=== PATIENT | male | born 1960 | race Caucasian/White ===

== ENCOUNTER 2018-03-05 08:23 | Emergency (ER) | payer BC, SELFPAY ==
--- NOTE | 2018-03-05 09:35 | RAD ---
FRONTAL VIEW CHEST: Comparison: 08-18-16 History: Cough. FINDINGS: There is no consolidation, effusion, or pneumothorax. Mild elevation of the left hemidiaphragm. Cardi ac silhouette is prominent. IMPRESSION: Stable chest. No focal consolidation. POS: [facility]
[2018-03-05 09:37] LABS: #Eosinphils 0.2 thou/uL (0.0-0.7); #Lymphocytes 2.1 thou/uL (1.20-3.40); #Monocytes 0.4 thou/uL (0.11-0.59); #Neutrophils 2.7 thou/uL (1.40-6.50); %Basophils 0.5 % (0.0-1.0); %Eosinophils 3.1 % (0.0-10.0); %Lymphocytes 38.3 % (21.0-51.0); %Monocytes 7.1 % (0.0-10.0); %Neutrophils 51.1 % (42.0-75.0); Hemoglobin 13.8 g/dL (14.0-18.0); Mean Corpuscular HGB CONC 32.4 g/dL (32.0-36.0); Mean Corpuscular Hemoglobin 29.8 pg (27.0-31.0); Mean Platelet Volume 6.8 fL (7.4-10.4); Platelet Count 243 thou/uL (130-400); Red Blood Cell (RBC) Count 4.64 mill/uL (4.70-6.10); White Blood Cell (WBC) Count 5.4 thou/uL (4.8-10.8)
[2018-03-05 09:41] LABS: CKMB 2.5 ng/mL (0-6.6); Troponin I Less than 0.010 ng/mL (< 0.028)
[2018-03-05] MEDS ORDERED: Ondansetron ODT 8 MG TAB ONE (09:43)
[2018-03-05 09:45] LABS: ALT (SGPT) 24 U/L (8-55); AST (SGOT) 23 U/L (5-34); Albumin 4.5 g/dL (3.5-5.0); Alkaline Phosphatase 71 U/L (40-150); Anion Gap 12 mmol/L (10-20); BUN (Urea Nitrogen) 21 mg/dL (8.4-25.7); Bilirubin, Total 0.5 mg/dL (0.2-1.2); Calc. Creatinine Clearance 0 mL/min (70-130); Calcium 9.5 mg/dL (7.8-10.44); Carbon Dioxide 25 mmol/L (22-29); Chloride 104 mmol/L (98-107); Estimated GFR-MDRD 44; Globulin 3.5 g/dL (2.4-3.5); Glucose 99 mg/dL (70-105); Lipase 41 U/L (8-78); Potassium 4.1 mmol/L (3.5-5.1); Sodium 137 mmol/L (136-145)
--- NOTE | 2018-03-05 10:47 | CT ---
CT BRAIN WITHOUT CONTRAST: History: Hypertension. Headache. Weakness. FINDINGS: Comparison made with exam of 08-14-14. No evidence of acute infarct, hemorrhage, midline shift, or abnormal extraaxial fluid collections are seen. Ventricular size is normal and the basilar cisterns normal. The bony calvarium is intact. The left paranasal sinus and maxillary air cells are well aerated. IMPRESSION: No CT evidence of acute intracranial process. POS: [facility]
[2018-03-05 11:33] LABS: Bilirubin Negative (Negative); Blood, Urine Negative (Negative); Clarity CLEAR (Clear); Glucose, Urine (Dipstick) >=1000 mg/dL (Negative); Leukocyte Negative (Negative); Nitrite Negative (Negative); Protein, Urine (Dipstick) Negative (Neg-Trace); Specific Gravity, Urine 1.029 (1.002-1.036); Urobilinogen 0.2 mg/dL (0.2-1.0); pH, Urine 5.5 (5.0-9.0)
--- NOTE | 2018-03-17 11:47 | EKG ---
Test Reason : Blood Pressure : / mmHG Vent. Rate : 064 BPM Atrial Rate : 064 BPM P-R Int : 180 ms QRS Dur : 088 ms QT Int : 424 ms P-R-T Axes : 036 -35 028 degrees QTc Int : 437 ms Normal sinus rhythm Left axis deviation Low voltage QRS Abnormal ECG Confirmed by CYNDIE HARRINGTON ([id number]), food editor ANABELA BRADLEY ([id number]) on 03/17/2018 11:47:23 AM Referred By: JUANY Confirmed By:CYNDIE HARRINGTON
== END 2018-03-05 12:25 | disposition home or self-care (01) ==
LOC: ERS 08:23
DX: R51 Headache (principal); R53.83 Other fatigue; R11.2 Nausea with vomiting, unspecified; R05 Cough; E11.9 Type 2 diabetes mellitus without complications; I10 Essential (primary) hypertension; E78.5 Hyperlipidemia, unspecified; Z79.899 Other long term (current) drug therapy
CPT/HCPCS: 36415; 70450; 71045; 80053; 81003; 82553; 83690; 84484; 85025; 93005

== ENCOUNTER 2018-11-04 22:46 | Observation (INO) | payer BC, OTHER ==
--- NOTE | 2018-11-04 23:18 | RAD ---
FExam: Chest one view HISTORY:Pain Comparison: 03/05/2018 FINDINGS: Lungs: No masses or consolidation. Cardiac silhouette:Accentuated by portable technique Pulmonary vessels: Normal Pleural Spaces: Clear Pneumothorax: None Osseous abnormalities: None of acuity. IMPRESSION: Stable chest
[2018-11-04 23:19] LABS: #Basophils 0.1 thou/uL (0.0-0.2); #Eosinphils 0.2 thou/uL (0.0-0.7); #Monocytes 0.4 thou/uL (0.11-0.59); #Neutrophils 3.1 thou/uL (1.40-6.50); %Basophils 2.2 % (0.0-1.0); %Eosinophils 2.9 % (0.0-10.0); %Lymphocytes 44.2 % (21.0-51.0); %Monocytes 5.2 % (0.0-10.0); %Neutrophils 45.5 % (42.0-75.0); Hemoglobin 14.7 g/dL (14.0-18.0); Mean Corpuscular HGB CONC 33.2 g/dL (32.0-36.0); Mean Corpuscular Hemoglobin 30.4 pg (27.0-31.0); Mean Corpuscular Volume 91.7 fL (78.0-98.0); Mean Platelet Volume 6.9 fL (7.4-10.4); Platelet Count 288 thou/uL (130-400); RBC Distribution Width 13.3 % (11.5-14.5); Red Blood Cell (RBC) Count 4.83 mill/uL (4.70-6.10); White Blood Cell (WBC) Count 6.7 thou/uL (4.8-10.8)
[2018-11-04] MEDS ORDERED: Aspirin Chewable 81 MG TAB ONE (23:38)
[2018-11-04 23:45] LABS: ALT (SGPT) 30 U/L (8-55); AST (SGOT) 25 U/L (5-34); Albumin 4.5 g/dL (3.5-5.0); Alkaline Phosphatase 83 U/L (40-150); Anion Gap 13 mmol/L (10-20); BUN (Urea Nitrogen) 19 mg/dL (8.4-25.7); Bilirubin, Total 0.4 mg/dL (0.2-1.2); Calc. Creatinine Clearance 0 mL/min (70-130); Carbon Dioxide 26 mmol/L (22-29); Chloride 102 mmol/L (98-107); Estimated GFR-MDRD 45; Globulin 3.5 g/dL (2.4-3.5); Glucose 148 mg/dL (70-105); Potassium 4.1 mmol/L (3.5-5.1); Sodium 137 mmol/L (136-145)
[2018-11-05] MEDS ORDERED: Acetaminophen 325 MG TAB PO PRN ×2 (02:09→03:04)
[2018-11-05 02:36] LABS: Troponin I Less than 0.010 ng/mL (< 0.028)
[2018-11-05] MEDS ORDERED: Acetaminophen 325 MG TAB ONE (02:43)
[2018-11-05] MEDS ORDERED: Ondansetron ODT 4 MG TAB PO PRN (03:04)
[2018-11-05] MEDS ORDERED: Senokot S 8.6-50 MG TAB PO PRN (03:04)
[2018-11-05] MEDS ORDERED: Loperamide HCl 2 MG CAP PO PRN (03:04)
[2018-11-05] MEDS ORDERED: Dextrose 5% in Water 1,000 ML IV PRN (03:04)
[2018-11-05] MEDS ORDERED: Ondansetron PF 4 MG/2 ML Vial IVP PRN (03:04)
[2018-11-05] MEDS ORDERED: Zolpidem Tartrate 5 MG TAB PO PRN (03:04)
[2018-11-05] MEDS ORDERED: Bisacodyl 5 MG TAB PO PRN (03:04)
[2018-11-05] MEDS ORDERED: Calcium Carbonate 500 MG ChewTAB PO PRN (03:04)
[2018-11-05] MEDS ORDERED: HumaLOG 300 UNITS/3 ML VIAL SC PRN (03:04)
[2018-11-05] MEDS ORDERED: Dextrose 50% Abboject 50 ML SYRINGE SLOW IVP PRN (03:04)
[2018-11-05] MEDS ORDERED: Bisacodyl 10 MG SUPP PR PRN (03:04)
--- NOTE | 2018-11-05 03:26 | HP ---
PRIMARY CARE PHYSICIAN: Dr. Davy Leary. REASON FOR ADMISSION: Chest pain, generalized weakness. HISTORY OF PRESENT ILLNESS: A 58-year-old male with a history of hypertension, dyslipidemia, and morbid obesity, who came to emergency room with complaint of chest pain. His chest pain description is very vague. He denies any classic anginal pain. He reports that chest pain was all over his chest, some tightness feeling without any radiation and without any specific association with food, respiration, or activity. When he arrived to emergency room, his chest pain was subsided. He did not have any associated nausea, vomiting, diaphoresis. He did not have any palpitation, but he was feeling mild dizziness and weakness. In the emergency room, his electrocardiogram was unremarkable. His cardiac enzymes were negative. This patient had an abnormal stress test in 2017, at that time cardiac cath was required, which showed normal coronary arteries. The patient does not have any change in his exercise capacity. REVIEW OF SYSTEMS: CONSTITUTIONAL: Negative for weight loss or gain, ability to conduct usual activities. SKIN: Negative for rash, itching. EYES: Negative for double vision, pain. ENT/MOUTH: Negative for nose bleeding, neck stiffness, pain, tenderness. CARDIOVASCULAR: Negative for palpitations, dyspnea on exertion, orthopnea. RESPIRATORY: Negative for shortness of breath, wheezing, cough, hemoptysis, fever or night sweats. GASTROINTESTINAL: Negative for poor appetite, abdominal pain, heartburn, nausea, vomiting, constipation, or diarrhea. GENITOURINARY: Negative for urgency, frequency, dysuria, nocturia. MUSCULOSKELETAL: Negative for pain, swelling. NEUROLOGIC/PSYCHIATRIC: Negative for anxiety, depression. ALLERGY/IMMUNOLOGIC: Negative for skin rash, bleeding tendency. Please see my HPI for pertinent positives and negatives. All other review of systems reviewed and negative except as mentioned in HPI. PAST MEDICAL HISTORY: Hypertension, dyslipidemia, diabetes type 2, morbid obesity. PAST SURGICAL HISTORY: Right knee surgery, umbilical hernia repair in 1993. PAST PSYCHIATRIC HISTORY: Reviewed and negative. SOCIAL HISTORY: The patient is . No history of tobacco, alcohol, or illicit drug abuse. FAMILY HISTORY: Father had CVA, diabetes, hypertension. Mother had hypertension and heart disease. ALLERGIES: NO KNOWN DRUG ALLERGIES. CURRENT HOME MEDICATIONS: 1. Lisinopril 20 mg daily. 2. Zocor 10 mg p.o. at bedtime. 3. Xigduo XR 11/999 one tablet daily. EMERGENCY ROOM COURSE: The patient was given aspirin. PHYSICAL EXAMINATION: VITAL SIGNS: Currently, blood pressure 122/89, pulse 67, respiratory rate 20, temperature 97.5, saturation 100% on room air, weight 154.2 kg. GENERAL: The patient is currently alert, awake, no obvious acute distress. HEENT: Head; normocephalic, atraumatic. Eyes; pupils round, reactive to light. Extraocular muscle intact. ENT: Oropharynx within normal limits. Moist mucous membranes. No oral lesion. No pharyngeal erythema. No exudate. NECK: Supple. No JVD. No thyromegaly. No carotid bruit. No jugular venous distention. LUNGS: Clear to auscultation without any rhonchi or rales. CARDIAC: S1, S2 regular without any murmur. No gallop. No rub. ABDOMEN: Soft, morbid obesity present. Bowel sounds present. Nontender. Nondistended. No organomegaly. No mass. No suprapubic tenderness. BACK: Unremarkable, no CVA tenderness. EXTREMITIES: Upper extremities, passive movement of all joints are normal. Lower extremities, no edema. Good distal pulsation. SKIN: No skin rash. HEMATOLOGICAL: No lymphadenopathy. NEUROLOGIC: Nonfocal examination. SIGNIFICANT LABORATORY DATA: EKG showing normal sinus rhythm without any acute ischemic changes. Chest x-ray based on my review no acute cardiopulmonary process. CBC: WBC 6.7, hemoglobin 14.7, platelet 288. BMP: Sodium 137, potassium 4.1, chloride 102, carbon dioxide 26, BUN 19, creatinine 1.59, glucose 148, calcium 10.0. LFT, AST 25, ALT 30, alkaline phosphatase 83, and albumin 4.5. Cardiac enzyme negative x2. ASSESSMENT/PLAN: 1. Chest pain. The patient's chest pain description is atypical. He does not have any description that can suggest angina. He does not have any risk factor for thromboembolic disorder at this point. The patient is on room air, saturating normal. He does not have any pleurisy. At this point, we will do serial cardiac enzyme x3 and if all cardiac enzymes are negative, then we will consider discharging him home tomorrow. This patient does not need any further investigation and he will follow up with Cardiology as an outpatient basis given low risk. 2. Diabetes type 2. The patient will continue his home medication upon discharge. While in hospital, we will continue with insulin as per sliding scale per protocol. Diabetic diet will be given. 3. Chronic kidney disease, stage 3. We will monitor renal function. Avoid nephrotoxin agent. 4. Hypertension. Continue lisinopril per home dosage. 5. Dyslipidemia. Continue Zocor as per home dosage. 6. Morbid obesity, dietary education given. Weight loss education given. Healthy lifestyle measure discussed with the patient. 7. Deep venous thrombosis prophylaxis, not needed because we are expecting discharge in 24 hours. 8. Gastrointestinal prophylaxis. Pepcid 20 mg p.o. b.i.d. CODE STATUS: The patient is full code. DISPOSITION PLAN: If cardiac enzymes are negative, then we will consider discharging him home. Plan of care discussed with the patient in detail. Job ID: [id number]
[2018-11-05 04:14] LABS: Hemoglobin A1c 7.7 % (4.0-6.0)
[2018-11-05 04:27] LABS: Cardiac Risk 5.3 (Less than 4.5)
[2018-11-05 04:38] LABS: Troponin I 0.012 ng/mL (< 0.028)
[2018-11-05] MEDS ORDERED: HYDROcodone/Acetaminophen 5/325 mg Tablet ONE (08:24)
[2018-11-05] MEDS ORDERED: Aspirin 325 MG TAB ONE (08:24)
[2018-11-05] MEDS ORDERED: Lisinopril 10 MG TAB ONE (08:24)
[2018-11-05] MEDS ORDERED: Famotidine 20 MG TAB ONE (08:24)
[2018-11-05] MEDS: Famotidine 20 MG TAB PO SCH (08:26)
[2018-11-05] MEDS: Lisinopril 10 MG TAB PO SCH (08:26)
[2018-11-05] MEDS: HYDROcodone/Acetaminophen 5/325 mg Tablet PO PRN ×2 (08:27→15:44)
[2018-11-05] MEDS ORDERED: Aspirin 325 MG TAB PO SCH (09:00)
[2018-11-05] MEDS ORDERED: Nitroglycerin 0.4 MG TAB (25 Tab Bottle) PO PRN (10:53)
[2018-11-05] MEDS ORDERED: Insulin Regular 300 UNITS/3 ML VIAL ONE (11:27)
[2018-11-05] MEDS: HumaLOG 300 UNITS/3 ML VIAL SC PRN ×2 (11:31→15:45)
[2018-11-05 14:33] VITALS: BMI 48.8
[2018-11-05 15:24] LABS: Troponin I Less than 0.010 ng/mL (< 0.028)
[2018-11-05] MEDS ORDERED: Insulin Glargine 10 UNITS in Pre-Filled Syringe SC SCH (17:15)
[2018-11-05] MEDS ORDERED: Atorvastatin Calcium 10 MG TAB PO SCH (21:00)
[2018-11-06] MEDS ORDERED: Insulin Glargine 10 UNITS in Pre-Filled Syringe SC SCH (09:00)
[2018-11-06] MEDS ORDERED: Aspirin 325 mg Enteric Coated Tablet PO SCH (09:00)
[2018-11-06] MEDS: Famotidine 20 MG TAB PO SCH (10:01)
[2018-11-06] MEDS: Lisinopril 10 MG TAB PO SCH (10:01)
--- NOTE | 2018-11-06 11:00 | NM ---
CARDIAC SPECT WITH EJECTION FRACTION AND WALL MOTION: Date: 11/05/18 HISTORY: Chest pain. TECHNIQUE: This is a 2 day sestamibi Lexiscan protocol. Patient was injected with 31.8 mCi technetium-99m sestamibi intravenously for stress images and patie nt was injected with 30.8 mCi technetium-99m sestamibi intravenously for resting images. FINDINGS: Multiple SPECT images in the short axis, vertical long axis, and horizontal long axis demonstrate no scan evidence for infarct or ischemia. TID: 0.95 LHR: 0.24 EDV: 108 mL EF: 44% MYOCARDIAL PERFUSION WALL MOTION: Mild diffuse hypokinesis. IMPRESSION: No evidence for acute infarct or ischemia. Ejection fraction 44% with mild diffuse hypokinesis. POS: [facility]
[2018-11-06] MEDS ORDERED: Regadenoson 0.4 MG/5 ML SYRINGE ONE (11:37)
[2018-11-06 11:52] VITALS: BP 141/98; TEMP 98.7
[2018-11-06] MEDS ORDERED: Simvastatin 20 MG TAB PO SCH (21:00)
[2018-11-06] MEDS ORDERED: Simvastatin 5 MG TAB PO SCH (21:00)
--- NOTE | 2018-11-07 10:17 | DIS ---
DATE OF ADMISSION: 11/05/2018 DATE OF DISCHARGE: 11/06/2018 FOLLOWUP: 1. The patient will follow up with Dr. Dar Marino later this week. 2. The patient was advised to follow up with Dr. Luong to schedule a sleep study. 3. The patient was advised to follow up with Dr. Leary. DISCHARGE MEDICATION: 1. Lisinopril 20 mg daily. 2. Simvastatin 10 mg at bedtime. 3. Aspirin 81 mg daily. 4. Xigduo XR 04/1000 daily. BRIEF HOSPITAL COURSE: The patient is a 58-year-old male with diabetes mellitus type 2, hypertension, and morbid obesity, who presented to the emergency room with chest discomfort. Please refer to the history and physical for further details. The patient was admitted to the hospital with a diagnosis of chest discomfort, rule out acute coronary syndrome. Serial troponins were negative. The patient underwent stress test that was negative for reversible ischemia. Ejection fraction was 44% with mild diffuse hypokinesis. The patient will follow up with Cardiology as outpatient for an echocardiogram. He was also advised to get a sleep study as outpatient. He is chest pain free at this time. Lifestyle modification was emphasized. The patient was seen and examined on the day of discharge. Denies any new complaints. Chest discomfort has improved. FINAL DIAGNOSES: 1. Chest discomfort, acute coronary syndrome ruled out. 2. Diabetes mellitus type 2. Hemoglobin A1c was 7.7. 3. Morbid obesity with a BMI of 48.8. 4. Dyslipidemia. His triglycerides were 194 with cholesterol 251, LDL 165 with HDL of 47. The patient will discuss with his primary care physician regarding increasing dose of statins. 5. Hypertension. 6. Chronic kidney disease, stage 3. The patient was advised to repeat a basic metabolic profile in 1 week. PLAN: Plan of care was discussed with the patient. He stated understanding. Job ID: [id number]
--- NOTE | 2018-11-10 15:59 | EKG ---
Test Reason : Blood Pressure : / mmHG Vent. Rate : 067 BPM Atrial Rate : 067 BPM P-R Int : 174 ms QRS Dur : 094 ms QT Int : 406 ms P-R-T Axes : 033 -38 039 degrees QTc Int : 429 ms Normal sinus rhythm Left axis deviation Inferior infarct , age undetermined Anteroseptal infarct , age undetermined Abnormal ECG Confirmed by JAKE BUSTILLO, BEAN ([id number]), news editor ANABELA BRADLEY ([id number]) on 11/10/2018 3:59:26 PM Referred By: JAKE Confirmed By:BEAN JOSEPH MD
== END 2018-11-06 14:12 | disposition home or self-care (01) ==
LOC: ERS 22:46 → ERHOLD 11-05 01:22 → 2SW 11-05 14:18
PROVIDERS: ADMIT Internal Medicine; ATTEND Internal Medicine
DX: R07.89 Other chest pain (principal); I12.9 Hypertensive chronic kidney disease with stage 1 through stage 4 chronic kidney disease, or unspecified chronic kidney disease; E11.22 Type 2 diabetes mellitus with diabetic chronic kidney disease; N18.3 Chronic kidney disease, stage 3 (moderate); Z79.82 Long term (current) use of aspirin; E78.5 Hyperlipidemia, unspecified; E66.01 Morbid (severe) obesity due to excess calories; Z68.42 Body mass index [BMI] 45.0-49.9, adult; Z79.899 Other long term (current) drug therapy; Z98.890 Other specified postprocedural states
CPT/HCPCS: 36415; 36416; 71045; 78452; 80053; 80061; 83036; 84484; 85025; 93005; 93017; 94760; A9500; G0378; J1815; J1825; J2785

== ENCOUNTER 2019-08-06 17:22 | Emergency (ER) | payer BC ==
--- NOTE | 2019-08-06 19:42 | RAD ---
PORTABLE CHEST: 08/06/19 PROVIDED CLINICAL HISTORY: Cough. FINDINGS: Comparison 11/04/18. Evaluation is limited by patient body habitus. The cardiac and mediastinal silhouette are unchanged i n appearance. No focal consolidation, pleural fluid, or pneumothorax apparent. IMPRESSION: No definite evidence for an acute cardiopulmonary process. If there is persistent clinical concern, f ollow-up PA and lateral views of the chest are recommended. POS: [facility]
== END 2019-08-06 19:37 | disposition home or self-care (01) ==
LOC: ERS 17:22
DX: B34.9 Viral infection, unspecified (principal); E11.9 Type 2 diabetes mellitus without complications; E78.5 Hyperlipidemia, unspecified; E78.00 Pure hypercholesterolemia, unspecified; I10 Essential (primary) hypertension; Z79.899 Other long term (current) drug therapy
CPT/HCPCS: 71045

== ENCOUNTER 2020-05-29 18:08 | Inpatient (IN) | payer BC ==
[2020-05-29] MEDS ORDERED: Dextrose 50% Abboject 50 ML SYRINGE SLOW IVP PRN (19:30)
[2020-05-29] MEDS ORDERED: Dextrose 5% in Water 1,000 ML IV PRN (19:30)
[2020-05-29] MEDS ORDERED: Calcium Carbonate 500 MG ChewTAB PO PRN (19:30)
[2020-05-29] MEDS ORDERED: Ondansetron PF 4 MG/2 ML Vial IVP PRN (19:30)
[2020-05-29] MEDS ORDERED: Ondansetron ODT 4 MG TAB PO PRN (19:30)
[2020-05-29] MEDS ORDERED: HYDROcodone/Acetaminophen 5/325 mg Tablet PO PRN (19:30)
[2020-05-29] MEDS ORDERED: Acetaminophen 650 MG Suppository PR PRN (19:30)
--- NOTE | 2020-05-29 19:42 | PDOC.HHP ---
Hospitalist HPI - History of Present Illness evaluation for covid 19 History of Present Illness: Case of an 59y/o male with pmhx of DM and HTN who presents to hospital transfer from [facility] for the evaluation of covid 19. patient states he was on his usual state of health until about a week ago when he started with cough chills nasal congestion body aches and dyspnea which has become progressively worse. patient denies fever chest pain abdominal pain diarrhea or dysuria. states no know covid contacts. at the ed noted to me in respiratory failure with RA saturation in the 80s Hospitalist ROS - Review of Systems All other systems reviewed; all pertinent +/- noted in HPI/Subj Hospitalist History - Past Surgical History Past Surgical History: reports: Hernia Repair Other Surgical History: R knee orthopedic sx w laser - Family History Family History: reports: cardiac disorder, diabetes mellitus, hypertension - Social History Smoking Status: Never smoker Alcohol: reports: None Drugs: reports: none Living Situation: With Family - Exam General Appearance: NAD, awake alert Eye: PERRL, anicteric sclera ENT: normocephalic atraumatic, no oropharyngeal lesions Neck: supple, symmetric, no JVD Heart: RRR, no murmur, no gallops, no rubs Respiratory: no wheezes, no rales, rhonchi, tachypneic Gastrointestinal: soft, non-tender, non-distended, normal bowel sounds Extremities: no cyanosis, no clubbing, no edema Skin: normal turgor, no lesions, no rashes Neurological: cranial nerve grossly intact, normal sensation to touch, no weakn ess Musculoskeletal: normal tone, normal strength, no muscle wasting Psychiatric: normal affect, normal behavior, A&O x 3 Hospitalist H&P A/P - Problem (1) Pneumonia due to COVID-19 virus Code(s): U07.1 - COVID-19; J12.89 - OTHER VIRAL PNEUMONIA Status: Acute (2) Acute respiratory failure with hypoxia Code(s): J96.01 - ACUTE RESPIRATORY FAILURE WITH HYPOXIA Status: Acute (3) Diabetes mellitus type 2 in obese Code(s): E11.9 - TYPE 2 DIABETES MELLITUS WITHOUT COMPLICATIONS; E66.9 - OBESITY, UNSPECIFIED Status: Acute (4) Hypertension Code(s): I10 - ESSENTIAL (PRIMARY) HYPERTENSION Status: Acute (5) Obesity Code(s): E66.9 - OBESITY, UNSPECIFIED Status: Acute - Plan Plan: 59y/o male with pmhx of htn and dm who presents to hospital for evaluation of covid 19 covid 19 - testing pending results - will also test for flu - cxr w hazy infiltrate - prophylactically covered with rocephin and azithromycin - dexamethasone 6mg iv x5d - id consulted - dvt prophylaxis - ddimer normal - f/u inflammation markers respiratory failure hypoxia - o2 supplementation - likely secondary to above DM -acc + ss htn - continue home meds
[2020-05-29 19:51] LABS: SARS-CoV-2 NAA Rapid Test Not Detected (NotDetected)
[2020-05-29] MEDS: Sodium Chloride 0.9% 1,000 ML IV SCH (23:07)
[2020-05-29] MEDS: Atorvastatin Calcium 10 MG TAB PO SCH (23:07)
[2020-05-29] MEDS: cefTRIAXone\\ROCEPHIN 1 GM in Sodium Chloride 0.9% 100 ML IVPB SCH (23:07)
[2020-05-29 23:35] VITALS: BMI 46.1
[2020-05-30] MEDS: Azithromycin 500 MG in Sodium Chloride 0.9% 250 ML 250 ML IVPB SCH ×2 (00:13→22:49)
[2020-05-30 06:59] LABS: Band 14 % (5-11); Hemoglobin 13.7 g/dL (14.0-18.0); Lymphocytes 14 % (21-51); MDiff Complete? YES; Mean Corpuscular HGB CONC 34.2 g/dL (32.0-36.0); Mean Corpuscular Hemoglobin 31.4 pg (27.0-31.0); Mean Corpuscular Volume 91.7 fL (78.0-98.0); Mean Platelet Volume 6.9 fL (7.4-10.4); Monocytes 10 % (0-10); Neutrophil 62 % (42-75); Platelet Count 181 thou/uL (130-400); Platelet Morphology Comment Appears Adequate; RBC Distribution Width 13.1 % (11.5-14.5); Red Blood Cell (RBC) Count 4.38 mill/uL (4.70-6.10); White Blood Cell (WBC) Count 5.3 thou/uL (4.8-10.8)
[2020-05-30 07:02] LABS: ALT (SGPT) 29 U/L (8-55); AST (SGOT) 21 U/L (5-34); Albumin 3.8 g/dL (3.5-5.0); Alkaline Phosphatase 63 U/L (40-110); Anion Gap 15 mmol/L (10-20); BUN (Urea Nitrogen) 18 mg/dL (8.4-25.7); Bilirubin, Total 0.4 mg/dL (0.2-1.2); Calc. Creatinine Clearance 123 mL/min (70-130); Calcium 8.4 mg/dL (7.8-10.44); Carbon Dioxide 23 mmol/L (22-29); Chloride 104 mmol/L (98-107); Estimated GFR-MDRD 54; Globulin 3.3 g/dL (2.4-3.5); Glucose 159 mg/dL (70-105); Potassium 4.5 mmol/L (3.5-5.1); Protein, Total 7.1 g/dL (6.0-8.3); Sodium 137 mmol/L (136-145)
[2020-05-30] MEDS: Enoxaparin Sodium 40 MG/0.4 ML SYRINGE SC SCH (08:00)
[2020-05-30] MEDS: Dexamethasone 4 mg/ml Vial SLOW IVP SCH (08:00)
[2020-05-30] MEDS: Lisinopril 10 MG TAB PO SCH (10:11)
[2020-05-30] MEDS: Sodium Chloride 0.9% 1,000 ML IV SCH (10:20)
--- NOTE | 2020-05-30 11:06 | CT ---
CT PULMONARY ANGIOGRAM WITH IV CONTRAST AND 3D MIP RECONSTRUCTIONS: 05/30/20 PROVIDED CLINICAL HISTORY: Cough. Dyspnea. Chills. Bodyaches. FINDINGS: There is no evidence for central or segmental pulmonary embolus. Vascular calcification, including co nspicuous coronary calcium is demonstrated. There is a small pericardial effusion. There is dense consolidation involving the superior segment of the left lower lobe with patchy ground glass opacity present within the more basilar aspects of both lower lobes and to a lesser extent eac h upper lobe. There is trace left pleural fluid. There is no evidence for thoracic lymph node enlargement. The airway appears patent and of normal brooks iber. There is no evidence for pneumothorax. The visualized portions of the upper abdomen appear unremarkable. The osseous structures demonstrate no concerting lytic or blastic lesions. IMPRESSION: 1. No evidence for central or segmental pulmonary embolus. 2. Dense left lower lobe consolidation with patchy ground glass opacity involving other portions of t he lungs. Findings are compatible with multifocal pneumonia. 3. Prominent coronary calcium. 4. Small pericardial effusion and trace left pleural fluid. POS: [facility]
[2020-05-30] MEDS: HumaLOG 300 UNITS/3 ML VIAL SC PRN ×3 (12:57→20:38)
--- NOTE | 2020-05-30 14:55 | PDOC.HOSPP ---
- Subjective Encounter Date: 05/30/20 Encounter Time: 09:20 Subjective: feels better, has cough but not bringing up sputum no exposure to covid as far as he knows is needing nasal [place] oxygen does not use cpap or oxygen at home - Objective Vital Signs & Weight: Vital Signs (12 hours) Temp Pulse Resp BP BP Pulse Ox 05/30/20 12:05 97.7 F 73 18 137/83 96 05/30/20 10:11 137/83 05/30/20 08:19 97.7 F 71 18 134/84 96 05/30/20 05:00 97.7 F 74 20 133/84 96 Weight Weight 321 lb 9.6 oz I&O: 05/29/20 05/30/20 05/31/20 06:59 06:59 05:59 Intake Total 240 Balance 240 Result Diagrams: 05/30/20 06:19 05/30/20 06:19 Additional Labs: Accuchecks 05/30/20 05/30/20 05/30/20 11:18 05:19 00:15 POC Glucose 199 H 153 H 216 H Hospitalist ROS - Medication Medications: Active Medications Generic Name Dose Route Start Last Admin Trade Name Freq PRN Reason Stop Dose Admin Atorvastatin Calcium 10 mg 05/29/20 21:00 05/29/20 23:07 Atorvastatin Calcium 10 Mg Tab PO 10 mg HS CONCHA Administration Dexamethasone 6 mg 05/30/20 09:00 05/30/20 08:00 Dexamethasone 4 Mg/Ml Vial SLOW IVP 6 mg DAILY CONCHA Administration Enoxaparin Sodium 40 mg 05/30/20 09:00 05/30/20 08:00 Enoxaparin Sodium 40 Mg/0.4 Ml Syringe SC 40 mg 0900 CONCHA Administration Ceftriaxone Sodium 1 gm/ 100 mls @ 200 mls/hr 05/29/20 20:00 05/29/20 23:07 Sodium Chloride IVPB 100 mls Q24HR CONCHA Administration Azithromycin 500 mg/ Sodium 250 mls @ 250 mls/hr 05/29/20 21:00 05/30/20 00:13 Chloride IVPB 250 mls Q24HR CONCHA Administration Sodium Chloride 1,000 mls @ 70 mls/hr 05/29/20 19:30 05/30/20 10:20 Normal Saline 0.9% IV Not Given .[id number] CONCHA Insulin Human Lispro 0 units 05/29/20 19:30 05/30/20 12:57 Humalog 300 Units/3 Ml Vial SC 2 unit .MILD SLIDING SCALE PRN Administration Mild Correctional Scale Lisinopril 10 mg 05/30/20 09:00 05/30/20 10:11 Lisinopril 10 Mg Tab PO 10 mg DAILY CONCHA Administration Sodium Chloride 10 ml 05/30/20 09:00 05/30/20 08:00 Flush - Normal Saline 10 Ml Syringe IVF Not Given Q12HR CONCHA - Exam General Appearance: awake alert Eye: PERRL, anicteric sclera ENT: no oropharyngeal lesions, moist mucosa Neck: supple, no JVD Heart: RRR, no murmur Respiratory: no wheezes, no ronchi, rales Gastrointestinal: soft, non-tender, non-distended, normal bowel sounds Extremities: no cyanosis, no edema Neurological: cranial nerve grossly intact, no focal deficits Psychiatric: normal affect, A&O x 3 Hosp A/P (1) PNA (pneumonia) Code(s): J18.9 - PNEUMONIA, UNSPECIFIED ORGANISM Status: Acute Qualifiers: Pneumonia type: due to unspecified organism Laterality: bilateral (2) Acute respiratory failure with hypoxia Code(s): J96.01 - ACUTE RESPIRATORY FAILURE WITH HYPOXIA Status: Acute (3) Diabetes mellitus type 2 in obese Code(s): E11.9 - TYPE 2 DIABETES MELLITUS WITHOUT COMPLICATIONS; E66.9 - OBESITY, UNSPECIFIED Status: Acute (4) Hypertension Code(s): I10 - ESSENTIAL (PRIMARY) HYPERTENSION Status: Chronic Qualifiers: Hypertension type: essential hypertension Qualified Code(s): I10 - Essential (primary) hypertension (5) Obesity Code(s): E66.9 - OBESITY, UNSPECIFIED Status: Chronic Qualifiers: Obesity classification: adult class 3 (BMI >= 40) Body mass index: BMI 45.0-49.9 - Plan is on ceftriaxone and zithromax first covid pcr is -ve, will get another one in view of high risk category with multifocal infiltrates, has had uri symptoms for 1 week now. is morbidly obese, new onset dm, likely might have a component of obesity hypoventilation/janet? is on lisinopril, lipitor hemostable is on 3 lts nc oxygen cta is -ve for PE but has multifocal infiltrates worse in left LL prior stress test in 10/2018 showed ef of 44% with mild diffuse hypokinesis, cta shows coronary calcium as well has life threatening obesity and needs to have life style changes drastically to reduce risk
[2020-05-30] MEDS ORDERED: Iopamidol-370 76% 500 ML 1 ML ONE (15:22)
[2020-05-30 16:38] LABS: SARS-CoV-2 IgG Ab Non-Reactive (NonReactive); SARS-CoV-2 IgG Index 0.02 S/CO (< 1.40)
--- NOTE | 2020-05-30 17:22 | CON ---
DATE OF CONSULTATION: 05/30/2020 REASON: Pneumonia, possible COVID. HISTORY OF PRESENT ILLNESS: A 59-year-old, history of obesity, type 2 diabetes, hypertension, who has been ill now for about 7 days with cough and fever, nasal congestion. On arrival, his BP 120/74, heart rate 82, temperature 97.9, O2 saturation 93% room air. The chest x-ray showed a fairly dense consolidation in the left lower lobe. There are some areas of patchy opacity in other portions of lungs. Initial COVID test was negative. Currently, he is looking comfortable at rest. He has some hearing issues. No headaches. No visual symptoms. No sore throat, odynophagia, or dysphagia. No chest pain, no sputum production. No abdominal pain or diarrhea. No genitourinary symptoms. No anosmia. PAST MEDICAL HISTORY: Type 2 diabetes, hypertension, obesity. He has had a negative Cardiolite stress test, but the echo showed EF 44 with mild diffuse hypokinesis. ALLERGIES: NONE. CURRENT MEDICATIONS: 1. Lipitor. 2. Azithromycin. 3. Rocephin. 4. Decadron. FAMILY HISTORY: Diabetes, coronary artery disease. SOCIAL HISTORY: Never smoker. Does not drink. He works as a cement truck driver. PHYSICAL EXAMINATION: VITAL SIGNS: Temperature has been normal, BP 130/80, heart rate 73, respiratory rate 18, and O2 saturation 96. SKIN: No skin lesions. He has a little bit of hyperkeratosis in the knee area. No lymphadenopathy. HEENT: Ocular movements conjugate. Oral cavity with numerous missing teeth. Oral mucosa normal. NECK: Supple. LUNGS: Some crackles at the left base. HEART: S1, S2 regular rate. ABDOMEN: Soft, not distended or tender. No ascites. No bladder distention. No intertrigo. GENITAL: Normal, no lymphadenopathy. EXTREMITIES: Pulses 1+ in dorsalis pedis, moves extremities equally. NEUROLOGIC: Cognitive function appears to be stable. He is oriented. Speech appears normal. He has a little bit of hearing impairment SARS-CoV RNA PCR not detected on the 30. White cell count 5.3 with lymphocytopenia. Neutrophils are 62. Sodium 137, creatinine 1.37. Liver profile normal. LDH 192. Procalcitonin 0.04, ferritin 735. Four blood cultures negative thus far. Influenza assay was negative. ASSESSMENT: Obesity, diabetes type 2, hypertension with 7 days history of cough, fever. DISCUSSION: The chest x-ray is somewhat atypical for COVID, very dense area of consolidation in left lower lobe is more consistent with bacterial pneumonia. So we will continue Zithromax and Rocephin. We are waiting on the results of the second COVID PCR as well as the antibody test. If they are negative, then I would probably treat this as a bacterial pneumonia and stop Decadron. Job ID: [id number]
[2020-05-30 19:48] LABS: Legionella Urinary Ag Negative (Negative); Strep pneumo Urine Ag NEGATIVE (NEGATIVE)
[2020-05-30] MEDS: cefTRIAXone\\ROCEPHIN 1 GM in Sodium Chloride 0.9% 100 ML IVPB SCH (20:13)
[2020-05-30] MEDS: Atorvastatin Calcium 10 MG TAB PO SCH (20:13)
[2020-05-30] MEDS ORDERED: FLU VACC QS2020-21(6MOS UP)/PF 60 MCG/0.5 ML SYRINGE IM ONE (21:00)
[2020-05-31] MEDS: Acetaminophen 325 MG TAB PO PRN (04:02)
[2020-05-31] MEDS: Enoxaparin Sodium 40 MG/0.4 ML SYRINGE SC SCH (08:54)
[2020-05-31] MEDS: glipiZIDE 5 MG TAB PO SCH (08:54)
[2020-05-31] MEDS: Lisinopril 10 MG TAB PO SCH (08:54)
[2020-05-31] MEDS: Dexamethasone 4 mg/ml Vial SLOW IVP SCH (08:54)
--- NOTE | 2020-05-31 12:48 | PDOC.HOSPP ---
- Subjective Encounter Date: 05/31/20 Encounter Time: 09:30 Subjective: feels better, no sob is comfortable off nasal canula with spo2 of 88% now. (his nasal canula got dislodged while he was resting) says he is ambulating and eating well - Objective Vital Signs & Weight: Vital Signs (12 hours) Temp Pulse Resp BP BP BP BP 05/31/20 11:55 99.2 F 68 18 120/80 05/31/20 09:15 05/31/20 09:05 100.1 F H 91 20 123/75 05/31/20 08:54 123/75 05/31/20 06:26 101.6 F H 103 H 20 05/31/20 04:34 102.5 F H 05/31/20 04:21 102.8 F H 101 H 20 159/82 H Pulse Ox 05/31/20 11:55 94 L 05/31/20 09:15 91 L 05/31/20 09:05 91 L 05/31/20 08:54 05/31/20 06:26 95 05/31/20 04:34 05/31/20 04:21 91 L Weight Weight 321 lb 9.6 oz I&O: 05/30/20 05/31/20 06/01/20 07:59 06:59 06:59 Intake Total Output Total Balance Result Diagrams: 05/30/20 06:19 05/30/20 06:19 Additional Labs: Accuchecks 05/31/20 05/31/20 05/30/20 10:56 04:09 20:21 POC Glucose 149 H 109 H 228 H 05/30/20 17:10 POC Glucose 203 H Hospitalist ROS - Medication Medications: Active Medications Generic Name Dose Route Start Last Admin Trade Name Freq PRN Reason Stop Dose Admin Acetaminophen 650 mg 05/29/20 19:30 05/31/20 04:02 Acetaminophen 325 Mg Tab PO 650 mg Q4H PRN Administration Headache/Fever/Mild Pain (1-3) Atorvastatin Calcium 10 mg 05/29/20 21:00 05/30/20 20:13 Atorvastatin Calcium 10 Mg Tab PO 10 mg HS CONCHA Administration Dexamethasone 6 mg 05/30/20 09:00 05/31/20 08:54 Dexamethasone 4 Mg/Ml Vial SLOW IVP 6 mg DAILY CONCHA Administration Enoxaparin Sodium 40 mg 05/30/20 09:00 05/31/20 08:54 Enoxaparin Sodium 40 Mg/0.4 Ml Syringe SC 40 mg 0900 CONCHA Administration Glipizide 5 mg 05/31/20 07:30 05/31/20 08:54 Glipizide 5 Mg Tab PO 5 mg DAILY-AC CONCHA Administration Ceftriaxone Sodium 1 gm/ 100 mls @ 200 mls/hr 05/29/20 20:00 05/30/20 20:13 Sodium Chloride IVPB 100 mls Q24HR CONCHA Administration Azithromycin 500 mg/ Sodium 250 mls @ 250 mls/hr 05/29/20 21:00 05/30/20 22:49 Chloride IVPB 250 mls Q24HR CONCHA Administration Insulin Human Lispro 0 units 05/29/20 19:30 05/30/20 20:38 Humalog 300 Units/3 Ml Vial SC 3 unit .MILD SLIDING SCALE PRN Administration Mild Correctional Scale Lisinopril 10 mg 05/30/20 09:00 05/31/20 08:54 Lisinopril 10 Mg Tab PO 10 mg DAILY CONCHA Administration Sodium Chloride 10 ml 05/30/20 09:00 05/31/20 10:46 Flush - Normal Saline 10 Ml Syringe IVF 10 ml Q12HR CONCHA Administration - Exam General Appearance: awake alert Eye: PERRL, anicteric sclera ENT: no oropharyngeal lesions, moist mucosa Neck: supple, no JVD Heart: RRR, no murmur Respiratory: no wheezes, no rales, rhonchi Gastrointestinal: soft, non-tender, non-distended, normal bowel sounds Extremities: no cyanosis, no edema Neurological: cranial nerve grossly intact, no focal deficits Psychiatric: normal affect, A&O x 3 Hosp A/P (1) PNA (pneumonia) Code(s): J18.9 - PNEUMONIA, UNSPECIFIED ORGANISM Status: Acute Qualifiers: Pneumonia type: due to unspecified organism Laterality: bilateral (2) Acute respiratory failure with hypoxia Code(s): J96.01 - ACUTE RESPIRATORY FAILURE WITH HYPOXIA Status: Acute (3) Diabetes mellitus type 2 in obese Code(s): E11.9 - TYPE 2 DIABETES MELLITUS WITHOUT COMPLICATIONS; E66.9 - OBESITY, UNSPECIFIED Status: Acute (4) Hypertension Code(s): I10 - ESSENTIAL (PRIMARY) HYPERTENSION Status: Chronic Qualifiers: Hypertension type: essential hypertension Qualified Code(s): I10 - Essential (primary) hypertension (5) Obesity Code(s): E66.9 - OBESITY, UNSPECIFIED Status: Chronic Qualifiers: Obesity classification: adult class 3 (BMI >= 40) Body mass index: BMI 45.0-49.9 - Plan is on ceftriaxone and zithromax first covid pcr is -ve, second pcr is pending, was done in view of high risk category with multifocal infiltrates, has had uri symptoms for 8 days now. is morbidly obese, new onset dm, likely might have a component of obesity hypoventilation/janet? is on lisinopril, lipitor hemostable is on 3 lts nc oxygen cta is -ve for PE but has multifocal infiltrates worse in left LL prior stress test in 10/2018 showed ef of 44% with mild diffuse hypokinesis, cta shows coronary calcium as well has life threatening obesity and needs to have life style changes drastically to reduce risk will dc dexamethasone if second covid pcr is -ve and remove precautions as well.
--- NOTE | 2020-05-31 14:18 | PRG ---
DATE OF SERVICE: 05/31/2020 SUBJECTIVE: So Stalin is not having any major symptoms, although he is hypoxemic frequently when he removes his cannula. His saturations are kind of lowish 91 to 94 and not clear if that is because he is not wearing his cannula as he should. He is now up to 4 L nasal cannula and is on Decadron and azithromycin. OBJECTIVE: GENERAL: The patient is alert. HEART: Normal. LUNGS: Without any crackles or wheezing. ABDOMEN: Soft, not distended. NEURO: Nonfocal. LABORATORY DATA: White cell count 5.3, has not been repeated. Ferritin was 735. He has a SARS-CoV IgG antibody nonreactive and SARS-CoV-2 PCR not detected. ASSESSMENT AND DISCUSSION: Obesity, type 2 diabetes, hypertension, 7-day history of cough and fever. The chest x-ray is atypical for COVID infection with a quite dense consolidation in the left lower lobe, it is more consistent with a bacterial infection. He had temperature increased up to 102 at 4 o'clock in the morning today. Blood cultures are no growth at 48 hours. I do not see result at the Streptococcus and Legionella antigen yet. Continue broad spectrum, community-acquired pneumonia regimen. He is also on Decadron. May have to repeat his SARS-CoV IgG antibody again since early on antibody may be negative depending on clinical progress. Job ID: [id number]
[2020-05-31] MEDS: Atorvastatin Calcium 10 MG TAB PO SCH (21:19)
[2020-05-31] MEDS: cefTRIAXone\\ROCEPHIN 1 GM in Sodium Chloride 0.9% 100 ML IVPB SCH (21:19)
[2020-05-31] MEDS: HumaLOG 300 UNITS/3 ML VIAL SC PRN (21:20)
[2020-05-31] MEDS: Azithromycin 500 MG in Sodium Chloride 0.9% 250 ML 250 ML IVPB SCH (21:20)
[2020-06-01] MEDS: Acetaminophen 325 MG TAB PO PRN ×2 (05:23→16:39)
[2020-06-01 06:19] LABS: #Monocytes 0.2 thou/uL (0.11-0.59); #Neutrophils 3.7 thou/uL (1.40-6.50); %Eosinophils 0.2 % (0.0-10.0); %Lymphocytes 20.5 % (21.0-51.0); %Neutrophils 75.3 % (42.0-75.0); Hemoglobin 14.1 g/dL (14.0-18.0); Mean Corpuscular HGB CONC 33.8 g/dL (32.0-36.0); Mean Corpuscular Hemoglobin 30.8 pg (27.0-31.0); Mean Corpuscular Volume 91.1 fL (78.0-98.0); Mean Platelet Volume 7.2 fL (7.4-10.4); Platelet Count 206 thou/uL (130-400); RBC Distribution Width 13.1 % (11.5-14.5); Red Blood Cell (RBC) Count 4.58 mill/uL (4.70-6.10)
[2020-06-01 06:37] LABS: Anion Gap 15 mmol/L (10-20); BUN (Urea Nitrogen) 17 mg/dL (8.4-25.7); Calc. Creatinine Clearance 131 mL/min (70-130); Calcium 8.8 mg/dL (7.8-10.44); Carbon Dioxide 24 mmol/L (22-29); Chloride 98 mmol/L (98-107); Estimated GFR-MDRD 58; Glucose 93 mg/dL (70-105); Potassium 4.1 mmol/L (3.5-5.1); Sodium 133 mmol/L (136-145)
[2020-06-01] MEDS: glipiZIDE 5 MG TAB PO SCH (09:08)
[2020-06-01] MEDS: Lisinopril 10 MG TAB PO SCH (09:08)
[2020-06-01] MEDS: Enoxaparin Sodium 40 MG/0.4 ML SYRINGE SC SCH ×2 (09:08→20:18)
[2020-06-01] MEDS: Dexamethasone 4 mg/ml Vial SLOW IVP SCH (09:09)
[2020-06-01 12:48] LABS: SARS-CoV-2 N Gene Positive; SARS-CoV-2 orf1ab Positive
[2020-06-01 12:49] LABS: SARS-CoV-2 MS2 Positive; SARS-CoV-2 S Gene Negative
[2020-06-01 13:11] LABS: SARS-CoV-2 by NAA DETECTED (NotDetected)
[2020-06-01] MEDS: cefTRIAXone\\ROCEPHIN 1 GM in Sodium Chloride 0.9% 100 ML IVPB SCH (20:15)
[2020-06-01] MEDS: Atorvastatin Calcium 10 MG TAB PO SCH (20:16)
[2020-06-01] MEDS: Azithromycin 500 MG in Sodium Chloride 0.9% 250 ML 250 ML IVPB SCH (20:17)
[2020-06-01] MEDS: Zinc Sulfate 220 MG CAP PO SCH (20:18)
[2020-06-01] MEDS: guaiFENesin ER 600 MG TAB PO SCH (20:18)
--- NOTE | 2020-06-01 21:51 | PDOC.HOSPP ---
- Subjective Encounter Date: 06/01/20 Encounter Time: 16:30 Subjective: Patient seen and examined for respiratory failure due to COVID 19 pneumonia. Symptomatically feeling somewhat better. No nausea or vomiting. - Objective Vital Signs & Weight: Vital Signs (12 hours) Temp Pulse Resp BP Pulse Ox 06/01/20 20:30 98.3 F 93 20 117/74 93 L 06/01/20 17:31 98.2 F 18 90 L 06/01/20 12:50 18 92 L Weight Weight 321 lb 9.6 oz I&O: 05/31/20 06/01/20 06/02/20 06:59 06:59 06:59 Intake Total 1280 1350 Output Total 901 Balance 1280 449 Result Diagrams: 06/01/20 05:35 06/01/20 05:35 Additional Labs: Accuchecks 06/01/20 06/01/20 06/01/20 20:25 16:45 12:58 POC Glucose 211 H 226 H 118 H Abnormal Lab Results - Last 48 hrs 05/30/20 11:15: SARS-CoV-2 (PCR) DETECTED A* 06/01/20 05:35: Sodium 133 L 06/01/20 05:35: RBC 4.58 L, Hct 41.7 L, MPV 7.2 L, Neutrophils % 75.3 H, Lymp hocytes % 20.5 L, Lymphocytes # 1.0 L Microbiology - Entire Visit 05/29/20 20:04 Venous blood - Right Arm Blood Culture - Preliminary NO GROWTH AT 48 HOURS 05/29/20 20:04 Venous blood - Left Arm Blood Culture - Preliminary NO GROWTH AT 48 HOURS Radiology Reviewed by me: Yes (Chest x-raypneumonia) Hospitalist ROS - Review of Systems Gastrointestinal: denies: nausea, vomiting, abdominal pain, diarrhea, constipation, melena, hematochezia, other Genitourinary: denies: dysuria, frequency, incontinence, hematuria, retention, other - Medication Medications: Active Medications Generic Name Dose Route Start Last Admin Trade Name Freq PRN Reason Stop Dose Admin Acetaminophen 650 mg 05/29/20 19:30 06/01/20 16:39 Acetaminophen 325 Mg Tab PO 650 mg Q4H PRN Administration Headache/Fever/Mild Pain (1-3) Atorvastatin Calcium 10 mg 05/29/20 21:00 06/01/20 20:16 Atorvastatin Calcium 10 Mg Tab PO 10 mg HS CONCHA Administration Dexamethasone 6 mg 05/30/20 09:00 06/01/20 09:09 Dexamethasone 4 Mg/Ml Vial SLOW IVP 6 mg DAILY CONCHA Administration Enoxaparin Sodium 40 mg 06/01/20 21:00 06/01/20 20:18 Enoxaparin Sodium 40 Mg/0.4 Ml Syringe SC 40 mg 0900,2100 CONCHA Administration Glipizide 5 mg 05/31/20 07:30 06/01/20 09:08 Glipizide 5 Mg Tab PO 5 mg DAILY-AC CONCHA Administration Guaifenesin 600 mg 06/01/20 21:00 06/01/20 20:18 Guaifenesin Er 600 Mg Tab PO 600 mg Q12HR CONCHA Administration Ceftriaxone Sodium 1 gm/ 100 mls @ 200 mls/hr 05/29/20 20:00 06/01/20 20:15 Sodium Chloride IVPB 100 mls Q24HR CONCHA Administration Azithromycin 500 mg/ Sodium 250 mls @ 250 mls/hr 05/29/20 21:00 06/01/20 20:17 Chloride IVPB 250 mls Q24HR CONCHA Administration Insulin Human Lispro 0 units 05/29/20 19:30 05/31/20 21:20 Humalog 300 Units/3 Ml Vial SC 4 unit .MILD SLIDING SCALE PRN Administration Mild Correctional Scale Lisinopril 10 mg 05/30/20 09:00 06/01/20 09:08 Lisinopril 10 Mg Tab PO 10 mg DAILY CONCHA Administration Sodium Chloride 10 ml 05/30/20 09:00 06/01/20 20:50 Flush - Normal Saline 10 Ml Syringe IVF 10 ml Q12HR CONCHA Administration Zinc Sulfate 220 mg 06/01/20 21:00 06/01/20 20:18 Zinc Sulfate 220 Mg Cap PO 220 mg HS CONCHA Administration - Exam General Appearance: ill appearing Neck: supple, no JVD Heart: RRR, no gallops Respiratory: rales, rhonchi Gastrointestinal: soft, normal bowel sounds Extremities: no cyanosis, no clubbing Hosp A/P - Plan DVT proph w/SCDs Acute hypoxic respiratory failure due to COVID 19 pneumonia Sepsis due to pneumoniarule out bacterial? Gram-negative Diabetes mellitus type II Hypertension Morbid obesity with a BMI 46.1 Hyponatremia CKD stage III Plan: Continue IV antibiotics for superimposed bacterial pneumonia. Repeat COVID 19 came back positive. Continue dexamethasone. Change Lovenox to 40 mg bid. Continue lisinopril and other medications as above. Recheck labs including inflammatory markers.
[2020-06-02] MEDS: Acetaminophen 325 MG TAB PO PRN ×2 (05:35→16:33)
[2020-06-02 06:04] LABS: #Monocytes 0.3 thou/uL (0.11-0.59); %Basophils 0.1 % (0.0-1.0); %Lymphocytes 18.9 % (21.0-51.0); %Monocytes 4.9 % (0.0-10.0); %Neutrophils 76.1 % (42.0-75.0); Hemoglobin 13.5 g/dL (14.0-18.0); Mean Corpuscular HGB CONC 35.1 g/dL (32.0-36.0); Mean Corpuscular Hemoglobin 31.8 pg (27.0-31.0); Mean Corpuscular Volume 90.8 fL (78.0-98.0); Mean Platelet Volume 7.2 fL (7.4-10.4); Platelet Count 198 thou/uL (130-400); RBC Distribution Width 13.1 % (11.5-14.5); Red Blood Cell (RBC) Count 4.23 mill/uL (4.70-6.10); White Blood Cell (WBC) Count 5.2 thou/uL (4.8-10.8)
[2020-06-02 06:25] LABS: Anion Gap 14 mmol/L (10-20); BUN (Urea Nitrogen) 19 mg/dL (8.4-25.7); Calc. Creatinine Clearance 134 mL/min (70-130); Calcium 8.4 mg/dL (7.8-10.44); Carbon Dioxide 24 mmol/L (22-29); Chloride 98 mmol/L (98-107); Estimated GFR-MDRD 60; Glucose 104 mg/dL (70-105); Potassium 4.1 mmol/L (3.5-5.1); Sodium 132 mmol/L (136-145)
[2020-06-02 06:26] LABS: ALT (SGPT) 48 U/L (8-55); AST (SGOT) 33 U/L (5-34); Albumin 3.6 g/dL (3.5-5.0); Alkaline Phosphatase 63 U/L (40-110); Bilirubin, Direct 0.2 mg/dL (0.1-0.3); Bilirubin, Total 0.4 mg/dL (0.2-1.2); CRP (Inflammatory) 5.57 mg/dL (= or < 0.5); Protein, Total 7.1 g/dL (6.0-8.3)
[2020-06-02] MEDS: guaiFENesin ER 600 MG TAB PO SCH ×2 (08:16→20:02)
[2020-06-02] MEDS: Dexamethasone 4 mg/ml Vial SLOW IVP SCH (08:16)
[2020-06-02] MEDS: Lisinopril 10 MG TAB PO SCH (08:16)
[2020-06-02] MEDS: Ascorbic Acid 500 mg Chewable Tablet PO SCH (08:16)
[2020-06-02] MEDS: glipiZIDE 5 MG TAB PO SCH (08:17)
[2020-06-02] MEDS: Enoxaparin Sodium 40 MG/0.4 ML SYRINGE SC SCH ×2 (08:17→19:59)
--- NOTE | 2020-06-02 14:45 | PDOC.HOSPP ---
- Subjective Encounter Date: 06/02/20 Encounter Time: 08:45 Subjective: awake and is wearing nasal canula now counselled to wear oxygen and not remove it off O2 spo2 drops down to 70's - Objective Vital Signs & Weight: Vital Signs (12 hours) Temp Pulse Resp BP Pulse Ox 06/02/20 08:15 98.4 F 86 18 109/66 90 L 06/02/20 08:00 90 L 06/02/20 05:35 100.4 F H 06/02/20 05:00 100.4 F H 95 18 92 L Weight Weight 321 lb 9.6 oz I&O: 06/01/20 06/02/20 06/03/20 06:59 06:59 06:59 Intake Total 1280 2440 Output Total 1851 Balance 1280 589 Result Diagrams: 06/02/20 05:32 06/02/20 05:32 Additional Labs: Accuchecks 06/02/20 06/02/20 06/01/20 12:40 05:05 20:25 POC Glucose 124 H 97 211 H 06/01/20 06/01/20 16:45 05:14 POC Glucose 226 H 86 Hospitalist ROS - Medication Medications: Active Medications Generic Name Dose Route Start Last Admin Trade Name Freq PRN Reason Stop Dose Admin Acetaminophen 650 mg 05/29/20 19:30 06/02/20 05:35 Acetaminophen 325 Mg Tab PO 650 mg Q4H PRN Administration Headache/Fever/Mild Pain (1-3) Ascorbic Acid 1,000 mg 06/02/20 09:00 06/02/20 08:16 Ascorbic Acid 500 Mg Chewable Tablet PO 1,000 mg DAILY CONCHA Administration Atorvastatin Calcium 10 mg 05/29/20 21:00 06/01/20 20:16 Atorvastatin Calcium 10 Mg Tab PO 10 mg HS CONCHA Administration Dexamethasone 6 mg 05/30/20 09:00 06/02/20 08:16 Dexamethasone 4 Mg/Ml Vial SLOW IVP 6 mg DAILY CONCHA Administration Enoxaparin Sodium 40 mg 06/01/20 21:00 06/02/20 08:17 Enoxaparin Sodium 40 Mg/0.4 Ml Syringe SC 40 mg 0900,2100 CONCHA Administration Glipizide 5 mg 05/31/20 07:30 06/02/20 08:17 Glipizide 5 Mg Tab PO 5 mg DAILY-AC CONCHA Administration Guaifenesin 600 mg 06/01/20 21:00 06/02/20 08:16 Guaifenesin Er 600 Mg Tab PO 600 mg Q12HR CONCHA Administration Ceftriaxone Sodium 1 gm/ 100 mls @ 200 mls/hr 05/29/20 20:00 06/01/20 20:15 Sodium Chloride IVPB 100 mls Q24HR CONCHA Administration Azithromycin 500 mg/ Sodium 250 mls @ 250 mls/hr 05/29/20 21:00 06/01/20 20:17 Chloride IVPB 250 mls Q24HR CONCHA Administration Insulin Human Lispro 0 units 05/29/20 19:30 05/31/20 21:20 Humalog 300 Units/3 Ml Vial SC 4 unit .MILD SLIDING SCALE PRN Administration Mild Correctional Scale Lisinopril 10 mg 05/30/20 09:00 06/02/20 08:16 Lisinopril 10 Mg Tab PO 10 mg DAILY CONCHA Administration Sodium Chloride 10 ml 05/30/20 09:00 06/02/20 08:17 Flush - Normal Saline 10 Ml Syringe IVF 10 ml Q12HR CONCHA Administration Zinc Sulfate 220 mg 06/01/20 21:00 06/01/20 20:18 Zinc Sulfate 220 Mg Cap PO 220 mg HS CONCHA Administration - Exam General Appearance: awake alert Eye: PERRL, anicteric sclera ENT: no oropharyngeal lesions, dry oral mucosa Neck: supple, no JVD Heart: RRR, no murmur Respiratory: no wheezes, no rales, rhonchi Gastrointestinal: soft, non-tender, non-distended, normal bowel sounds Extremities: no cyanosis, no edema Neurological: cranial nerve grossly intact, no focal deficits Psychiatric: A&O x 3 Hosp A/P (1) Pneumonia due to COVID-19 virus Code(s): U07.1 - COVID-19; J12.89 - OTHER VIRAL PNEUMONIA Status: Acute (2) Acute respiratory failure with hypoxia Code(s): J96.01 - ACUTE RESPIRATORY FAILURE WITH HYPOXIA Status: Acute (3) Diabetes mellitus type 2 in obese Code(s): E11.9 - TYPE 2 DIABETES MELLITUS WITHOUT COMPLICATIONS; E66.9 - OBESITY, UNSPECIFIED Status: Acute (4) Hypertension Code(s): I10 - ESSENTIAL (PRIMARY) HYPERTENSION Status: Chronic Qualifiers: Hypertension type: essential hypertension Qualified Code(s): I10 - Essential (primary) hypertension (5) Obesity Code(s): E66.9 - OBESITY, UNSPECIFIED Status: Chronic Qualifiers: Obesity classification: adult class 3 (BMI >= 40) Body mass index: BMI 45.0-49.9 - Plan is on ceftriaxone and zithromax, dexamethasone, remdesivir from today first covid pcr is -ve, second pcr is +ve, d/w , will start remdesivir from today. is morbidly obese, new onset dm, likely might have a component of obesity hypoventilation/janet? is on lisinopril, lipitor hemostable is on 3 lts nc oxygen, noncompliant wearing it, counselled. cta is -ve for PE but has multifocal infiltrates worse in left LL prior stress test in 10/2018 showed ef of 44% with mild diffuse hypokinesis, cta shows coronary calcium as well has life threatening obesity and needs to have life style changes drastically to reduce overall risk of dying once he comes out of covid infection. tmax of 100
--- NOTE | 2020-06-02 14:47 | PQF ---
CLINICAL DOCUMENTATION CLARIFICATION FORM: Dear Dr. Cruz Date: 06/02/20 Please exercise your independent, professional judgment in responding to the clarification form. Clinical indicators are provided on the bottom of this form for your review. Diagnosis: Sepsis Present on Admission (POA): [ x ] Yes [ ] No [ ] Unable to determine For continuity of documentation, please document condition throughout progress notes and discharge summary. Thank You. To be completed by CDI/Coding staff for physician review: CLINICAL INDICATORS - SIGNS / SYMPTOMS / LABS/ RESULTS AND LOCATION IN MR PATIENT ADMITTED 05/30 PN 06/01 (LADHA): "SEPSIS" NO TEMP ON ADMIT TEMP 05/31: 102.8 TEMP 06/01: 101.1 - 102.9 CRP 06/02: 5.57 BANDS 05/30: 14 RISK FACTORS / RSULTS AND LOCATION IN MR RESPIRATORY FAILURE (PN 06/01- LADHA) COVID 19 (ER NOTE & PN 06/01- LADHA) PNEUMONIA (ER NOTE & PN 06/01-LADHA) TREATMENT / RSULTS AND LOCATION IN MR IV ROCEPHIN (05/29-PRESENT) IV ZITHROMAX (05/29-PRESENT) BLOOD CULTURES (05/29) CDS Signature: Luda Pedroza RN Phone #: [phone] Date: 06/02/20 This is a permanent part of the Medical Record [facility]
[2020-06-02] MEDS ORDERED: REMDESIVIR (EUA) 200 MG in Sodium Chloride 0.9% 250 ML 210 ML IV SCH (16:00)
--- NOTE | 2020-06-02 17:06 | PRG ---
DATE OF SERVICE: 06/02/2020 SUBJECTIVE: Mr. Gant keeps removing his O2 nasal cannula and desaturating down to 70s when he does that. He is tachypneic and somewhat uncomfortable at rest. No chest pain. No abdominal pain. He is voiding in the urinal. OBJECTIVE: VITAL SIGNS: Showed still intermittent temperature elevation, but not as much as before. His blood pressure is 109/66, heart rate 86, respiratory rate 18, and O2 saturation ranging from 90 to 93 on nasal cannula 5 L. LUNGS: He has scattered inspiratory crackles, particularly on the left side. HEART: S1 and S2, regular rate. ABDOMEN: Soft, not distended. No bladder distention. EXTREMITIES: Moves all extremities. No edema. LABORATORY DATA: SARS-CoV PCR was repeated on 05/30 and was detected positive. His Legionella and Strep pneumoniae antigen negative. White cell count 5.2, hemoglobin 13.5, and platelets 198. Creatinine 1.24. Ferritin is up to 2500. Liver profile normal. Currently, he is receiving azithromycin, Rocephin, and Decadron, and remdesivir has been started. ASSESSMENT AND DISCUSSION: Obesity, type 2 diabetes, hypertension, 7-day history of cough and fever, somewhat atypical chest x-ray for COVID infection, but positive PCR repeated on May 30. As discussed with Dr. Cruz, we will go ahead and add remdesivir. Continue the azithromycin and Rocephin because of the atypical nature of the infiltrate and Decadron as well. Job ID: [id number]
[2020-06-02] MEDS: Atorvastatin Calcium 10 MG TAB PO SCH (19:59)
[2020-06-02] MEDS: Zinc Sulfate 220 MG CAP PO SCH (20:00)
[2020-06-02] MEDS: Azithromycin 500 MG in Sodium Chloride 0.9% 250 ML 250 ML IVPB SCH (20:00)
[2020-06-02] MEDS: cefTRIAXone\\ROCEPHIN 1 GM in Sodium Chloride 0.9% 100 ML IVPB SCH (20:01)
[2020-06-03] MEDS: Guaifenesin DM 100-10/5 ML UDCUP PO PRN ×3 (01:40→21:57)
[2020-06-03 05:36] LABS: #Lymphocytes 1.3 thou/uL (1.20-3.40); #Monocytes 0.5 thou/uL (0.11-0.59); %Basophils 0.2 % (0.0-1.0); %Eosinophils 0.4 % (0.0-10.0); %Lymphocytes 19.7 % (21.0-51.0); %Monocytes 6.8 % (0.0-10.0); %Neutrophils 72.9 % (42.0-75.0); Mean Corpuscular HGB CONC 34.5 g/dL (32.0-36.0); Mean Corpuscular Hemoglobin 31.4 pg (27.0-31.0); Mean Corpuscular Volume 90.9 fL (78.0-98.0); Mean Platelet Volume 6.9 fL (7.4-10.4); Platelet Count 234 thou/uL (130-400); RBC Distribution Width 13.2 % (11.5-14.5); Red Blood Cell (RBC) Count 4.45 mill/uL (4.70-6.10); White Blood Cell (WBC) Count 6.8 thou/uL (4.8-10.8)
[2020-06-03 06:05] LABS: Anion Gap 16 mmol/L (10-20); BUN (Urea Nitrogen) 18 mg/dL (8.4-25.7); Calc. Creatinine Clearance 144 mL/min (70-130); Calcium 8.7 mg/dL (7.8-10.44); Carbon Dioxide 19 mmol/L (22-29); Chloride 101 mmol/L (98-107); Estimated GFR-MDRD 65; Glucose 118 mg/dL (70-105); Sodium 131 mmol/L (136-145)
[2020-06-03] MEDS: Enoxaparin Sodium 40 MG/0.4 ML SYRINGE SC SCH ×2 (07:32→20:27)
[2020-06-03] MEDS: glipiZIDE 5 MG TAB PO SCH (07:32)
[2020-06-03] MEDS: Lisinopril 10 MG TAB PO SCH (07:32)
[2020-06-03] MEDS: Ascorbic Acid 500 mg Chewable Tablet PO SCH (07:32)
[2020-06-03] MEDS: guaiFENesin ER 600 MG TAB PO SCH ×2 (07:32→20:27)
[2020-06-03] MEDS: Dexamethasone 4 mg/ml Vial SLOW IVP SCH (07:33)
--- NOTE | 2020-06-03 10:56 | RAD ---
EXAM: Chest one view: HISTORY: Dyspnea, follow-up Covid 19 pneumonia COMPARISON: 05/29/2020 FINDINGS: Heart size: Within normal limits. Lungs: Worsening bilateral alveolar and groundglass opacity changes particularly in the right mid and lower lung zone compared to the prior study. No significant pleural effusion of acute edema or pneumothorax. IMPRESSION: Worsening bilateral alveolar and groundglass opacity changes evidence for worsening Covid 19 pneumoni a. Continued short-term follow-up.
[2020-06-03] MEDS: HumaLOG 300 UNITS/3 ML VIAL SC PRN ×2 (11:51→16:45)
--- NOTE | 2020-06-03 13:32 | PDOC.HOSPP ---
- Subjective Encounter Date: 06/03/20 Encounter Time: 08:45 Subjective: is on high flow, oriented ate his breakfast - Objective Vital Signs & Weight: Vital Signs (12 hours) Temp Pulse Resp BP BP Pulse Ox 06/03/20 11:59 95 06/03/20 11:53 98.8 F 87 22 H 113/71 95 06/03/20 08:15 90 L 06/03/20 07:30 98.6 F 87 22 H 115/84 92 L 06/03/20 04:55 99.3 F 87 20 136/86 93 L 06/03/20 03:00 94 L 06/03/20 02:55 87 L Weight Weight 321 lb 9.6 oz I&O: 06/02/20 06/03/20 06/04/20 06:59 06:59 06:59 Intake Total 2440 1450 Output Total 1851 1500 Balance 589 -50 Result Diagrams: 06/03/20 05:23 06/03/20 05:23 Additional Labs: Accuchecks 06/03/20 06/03/20 06/02/20 11:45 04:54 16:53 POC Glucose 150 H 115 H 198 H 06/01/20 05:14 POC Glucose 86 Hospitalist ROS - Medication Medications: Active Medications Generic Name Dose Route Start Last Admin Trade Name Freq PRN Reason Stop Dose Admin Acetaminophen 650 mg 05/29/20 19:30 06/02/20 16:33 Acetaminophen 325 Mg Tab PO 650 mg Q4H PRN Administration Headache/Fever/Mild Pain (1-3) Ascorbic Acid 1,000 mg 06/02/20 09:00 06/03/20 07:32 Ascorbic Acid 500 Mg Chewable Tablet PO 1,000 mg DAILY CONCHA Administration Atorvastatin Calcium 10 mg 05/29/20 21:00 06/02/20 19:59 Atorvastatin Calcium 10 Mg Tab PO 10 mg HS CONCHA Administration Dexamethasone 6 mg 05/30/20 09:00 06/03/20 07:33 Dexamethasone 4 Mg/Ml Vial SLOW IVP 6 mg DAILY CONCHA Administration Enoxaparin Sodium 40 mg 06/01/20 21:00 06/03/20 07:32 Enoxaparin Sodium 40 Mg/0.4 Ml Syringe SC 40 mg 0900,2100 CONCHA Administration Glipizide 5 mg 05/31/20 07:30 06/03/20 07:32 Glipizide 5 Mg Tab PO 5 mg DAILY-AC CONCHA Administration Guaifenesin 600 mg 06/01/20 21:00 06/03/20 07:32 Guaifenesin Er 600 Mg Tab PO 600 mg Q12HR CONCHA Administration Guaifenesin/Dextromethorphan 15 ml 05/29/20 19:30 06/03/20 01:40 Guaifenesin Dm 100-10/5 Ml Udcup PO 15 ml Q4H PRN Administration Cough Ceftriaxone Sodium 1 gm/ 100 mls @ 200 mls/hr 05/29/20 20:00 06/02/20 20:01 Sodium Chloride IVPB 100 mls Q24HR CONCHA Administration Azithromycin 500 mg/ Sodium 250 mls @ 250 mls/hr 05/29/20 21:00 06/02/20 20:00 Chloride IVPB 250 mls Q24HR CONCHA Administration Insulin Human Lispro 0 units 05/29/20 19:30 06/03/20 11:51 Humalog 300 Units/3 Ml Vial SC 2 unit .MILD SLIDING SCALE PRN Administration Mild Correctional Scale Lisinopril 10 mg 05/30/20 09:00 06/03/20 07:32 Lisinopril 10 Mg Tab PO 10 mg DAILY CONCHA Administration Sodium Chloride 10 ml 05/30/20 09:00 06/03/20 07:33 Flush - Normal Saline 10 Ml Syringe IVF 10 ml Q12HR CONCHA Administration Zinc Sulfate 220 mg 06/01/20 21:00 06/02/20 20:00 Zinc Sulfate 220 Mg Cap PO 220 mg HS CONCHA Administration - Exam General Appearance: awake alert Eye: PERRL, anicteric sclera ENT: no oropharyngeal lesions, moist mucosa Neck: supple, no JVD Heart: RRR, no murmur Respiratory: no wheezes, rales, rhonchi Gastrointestinal: soft, non-tender, non-distended, normal bowel sounds Extremities: no cyanosis, no edema Neurological: cranial nerve grossly intact, no focal deficits Psychiatric: normal affect, A&O x 3 Hosp A/P (1) Pneumonia due to COVID-19 virus Code(s): U07.1 - COVID-19; J12.89 - OTHER VIRAL PNEUMONIA Status: Acute (2) Acute respiratory failure with hypoxia Code(s): J96.01 - ACUTE RESPIRATORY FAILURE WITH HYPOXIA Status: Acute (3) Diabetes mellitus type 2 in obese Code(s): E11.9 - TYPE 2 DIABETES MELLITUS WITHOUT COMPLICATIONS; E66.9 - OBESITY, UNSPECIFIED Status: Acute (4) Hypertension Code(s): I10 - ESSENTIAL (PRIMARY) HYPERTENSION Status: Chronic Qualifiers: Hypertension type: essential hypertension Qualified Code(s): I10 - Essential (primary) hypertension (5) Obesity Code(s): E66.9 - OBESITY, UNSPECIFIED Status: Chronic Qualifiers: Obesity classification: adult class 3 (BMI >= 40) Body mass index: BMI 45.0-49.9 - Plan is on ceftriaxone and zithromax, dexamethasone, remdesivir / today, started on high flow from 06/02. first covid pcr was -ve, second pcr is +ve, d/w , started on remdesivir from 06/02. is morbidly obese, new onset dm, likely might have a component of obesity hypoventilation/janet? is on lisinopril, lipitor hemostable cta is -ve for PE but has multifocal infiltrates worse in left LL prior stress test in 10/2018 showed ef of 44% with mild diffuse hypokinesis, cta shows coronary calcium as well has life threatening obesity and needs to have life style changes drastically to reduce overall risk of dying once he comes out of covid infection. discussed about intubation if he gets worse, says he does not want to be intubated come what may (is aware of consequences and is oriented well) d/w palliative care
[2020-06-03] MEDS: Sodium Chloride 0.65% Nasal 44 ML BOT EA NARE SCH ×2 (16:29→20:28)
[2020-06-03] MEDS: REMDESIVIR (EUA) 100 MG in Sodium Chloride 0.9% 250 ML 230 ML IV SCH (16:30)
[2020-06-03] MEDS: cefTRIAXone\\ROCEPHIN 1 GM in Sodium Chloride 0.9% 100 ML IVPB SCH (20:25)
[2020-06-03] MEDS: Azithromycin 500 MG in Sodium Chloride 0.9% 250 ML 250 ML IVPB SCH (20:26)
[2020-06-03] MEDS: Atorvastatin Calcium 10 MG TAB PO SCH (20:26)
[2020-06-03] MEDS: Zinc Sulfate 220 MG CAP PO SCH (20:28)
[2020-06-04] MEDS: Guaifenesin DM 100-10/5 ML UDCUP PO PRN (04:36)
[2020-06-04 06:04] LABS: ALT (SGPT) 49 U/L (8-55); AST (SGOT) 27 U/L (5-34); Albumin 3.6 g/dL (3.5-5.0); Alkaline Phosphatase 70 U/L (40-110); Bilirubin, Direct 0.2 mg/dL (0.1-0.3); Bilirubin, Total 0.4 mg/dL (0.2-1.2); Protein, Total 7.2 g/dL (6.0-8.3)
[2020-06-04] MEDS: Ascorbic Acid 500 mg Chewable Tablet PO SCH (07:11)
[2020-06-04] MEDS: Dexamethasone 4 mg/ml Vial SLOW IVP SCH (07:11)
[2020-06-04] MEDS: guaiFENesin ER 600 MG TAB PO SCH ×2 (07:12→20:40)
[2020-06-04] MEDS: glipiZIDE 5 MG TAB PO SCH (07:12)
[2020-06-04] MEDS: Lisinopril 10 MG TAB PO SCH (07:12)
[2020-06-04] MEDS: Sodium Chloride 0.65% Nasal 44 ML BOT EA NARE SCH ×2 (07:12→22:13)
[2020-06-04] MEDS: Enoxaparin Sodium 40 MG/0.4 ML SYRINGE SC SCH ×2 (07:12→20:42)
[2020-06-04] MEDS: guaiFENesin/Codeine Phosphate 200 mg/20 mg 10 ml UD Cup PO PRN ×2 (10:30→16:03)
[2020-06-04] MEDS: Hydrocortisone Sod Succ/PF 100 mg/2 ml Vial IVP SCH ×3 (10:31→22:13)
[2020-06-04] MEDS: HumaLOG 300 UNITS/3 ML VIAL SC PRN ×2 (12:46→22:14)
--- NOTE | 2020-06-04 13:31 | PDOC.HOSPP ---
- Subjective Encounter Date: 06/04/20 Encounter Time: 09:30 Subjective: has sob, is wearing high flow he does not want to be intubated, this was confirmed with his as well is eating well was mobilizing well till yest morning, but is getting weak and is on bed mostly now. - Objective Vital Signs & Weight: Vital Signs (12 hours) Temp Pulse Resp BP BP BP Pulse Ox 06/04/20 12:00 98.5 F 78 20 99/64 94 L 06/04/20 08:25 92 L 06/04/20 08:00 86 L 06/04/20 07:59 98.4 F 84 22 H 107/74 86 L 06/04/20 07:41 88 L 06/04/20 07:12 123/75 06/04/20 04:30 98.7 F 85 20 100/65 89 L Weight Weight 321 lb 9.6 oz I&O: 06/03/20 06/04/20 06/05/20 06:59 06:59 06:59 Intake Total 1450 2220 Output Total 1500 1000 Balance -50 1220 Result Diagrams: 06/03/20 05:23 06/03/20 05:23 Additional Labs: Accuchecks 06/04/20 06/04/20 06/03/20 12:21 04:25 19:05 POC Glucose 231 H 101 H 188 H 06/03/20 06/02/20 16:32 20:09 POC Glucose 255 H 249 H Hospitalist ROS - Medication Medications: Active Medications Generic Name Dose Route Start Last Admin Trade Name Freq PRN Reason Stop Dose Admin Acetaminophen 650 mg 05/29/20 19:30 06/02/20 16:33 Acetaminophen 325 Mg Tab PO 650 mg Q4H PRN Administration Headache/Fever/Mild Pain (1-3) Atorvastatin Calcium 10 mg 05/29/20 21:00 06/03/20 20:26 Atorvastatin Calcium 10 Mg Tab PO 10 mg HS CONCHA Administration Enoxaparin Sodium 40 mg 06/01/20 21:00 06/04/20 07:12 Enoxaparin Sodium 40 Mg/0.4 Ml Syringe SC 40 mg 0900,2100 CONCHA Administration Glipizide 5 mg 05/31/20 07:30 06/04/20 07:12 Glipizide 5 Mg Tab PO 5 mg DAILY-AC CONCHA Administration Guaifenesin 600 mg 06/01/20 21:00 06/04/20 07:12 Guaifenesin Er 600 Mg Tab PO 600 mg Q12HR CONCHA Administration Guaifenesin/Codeine Phosphate 10 ml 06/04/20 07:23 06/04/20 10:30 Guaifenesin/Codeine Phosphate 200 Mg/20 Mg 10 Ml Ud Cup PO 10 ml Q6H PRN Administration Cough Hydrocortisone Sodium Succinate 100 mg 06/04/20 09:00 06/04/20 10:31 Hydrocortisone Sod Succ/Pf 100 Mg/2 Ml Vial IVP 100 mg Q6H CONCHA Administration Ceftriaxone Sodium 1 gm/ 100 mls @ 200 mls/hr 05/29/20 20:00 06/03/20 20:25 Sodium Chloride IVPB 100 mls Q24HR CONCHA Administration Azithromycin 500 mg/ Sodium 250 mls @ 250 mls/hr 05/29/20 21:00 06/03/20 20:26 Chloride IVPB 250 mls Q24HR CONCHA Administration Remdesivir 100 mg/ Sodium 250 mls @ 250 mls/hr 06/03/20 16:00 06/03/20 16:30 Chloride IV 06/06/20 16:59 250 mls 1600 CONCHA Administration Ascorbic Acid 1,500 mg/ Sodium 53 mls @ 100 mls/hr 06/04/20 12:00 06/04/20 12:47 Chloride IVPB 06/08/20 12:01 53 mls Q6HR CONCHA Administration Insulin Human Lispro 0 units 05/29/20 19:30 06/04/20 12:46 Humalog 300 Units/3 Ml Vial SC 3 unit .MILD SLIDING SCALE PRN Administration Mild Correctional Scale Lisinopril 10 mg 05/30/20 09:00 06/04/20 07:12 Lisinopril 10 Mg Tab PO 10 mg DAILY CONCHA Administration Sodium Chloride 10 ml 05/30/20 09:00 06/04/20 07:12 Flush - Normal Saline 10 Ml Syringe IVF 10 ml Q12HR CONCHA Administration Sodium Chloride 0 ml 06/03/20 15:15 06/04/20 07:12 Sodium Chloride 0.65% Nasal 44 Ml Bot EA NARE 2 spr BID CONCHA Administration Zinc Sulfate 220 mg 06/01/20 21:00 06/03/20 20:28 Zinc Sulfate 220 Mg Cap PO 220 mg HS CONCHA Administration - Exam General Appearance: awake alert Eye: PERRL, anicteric sclera ENT: no oropharyngeal lesions, moist mucosa Neck: supple, no JVD Heart: RRR, no murmur Respiratory: no wheezes, rales, rhonchi Gastrointestinal: soft, non-tender, non-distended, normal bowel sounds Extremities: no cyanosis, 1+ LE edema Neurological: cranial nerve grossly intact, no focal deficits Psychiatric: A&O x 3 Hosp A/P (1) Pneumonia due to COVID-19 virus Code(s): U07.1 - COVID-19; J12.89 - OTHER VIRAL PNEUMONIA Status: Acute (2) Acute respiratory failure with hypoxia Code(s): J96.01 - ACUTE RESPIRATORY FAILURE WITH HYPOXIA Status: Acute (3) Diabetes mellitus type 2 in obese Code(s): E11.9 - TYPE 2 DIABETES MELLITUS WITHOUT COMPLICATIONS; E66.9 - OBESITY, UNSPECIFIED Status: Acute (4) Hypertension Code(s): I10 - ESSENTIAL (PRIMARY) HYPERTENSION Status: Chronic Qualifiers: Hypertension type: essential hypertension Qualified Code(s): I10 - Essential (primary) hypertension (5) Obesity Code(s): E66.9 - OBESITY, UNSPECIFIED Status: Chronic Qualifiers: Obesity classification: adult class 3 (BMI >= 40) Body mass index: BMI 45.0-49.9 - Plan is on ceftriaxone and zithromax, steroids, remdesivir 10/02 today, started on high flow from 06/02. first covid pcr was -ve, second pcr is +ve, d/w , started on remdesivir from 06/02. is morbidly obese, new onset dm, likely might have a component of obesity hypoventilation/janet? is on lisinopril, lipitor hemostable cta is -ve for PE but has multifocal infiltrates worse in left LL prior stress test in 10/2018 showed ef of 44% with mild diffuse hypokinesis, cta shows coronary calcium as well discussed about intubation if he gets worse, says he does not want to be intubated come what may (is aware of consequences and is oriented well) prognosis guarded spoke to and gave an update, she is aware he has severe covid pna. has uri symptoms and I have adviced her to check if she has covid, her son got tested yesterday and the results are expected to come monday.
--- NOTE | 2020-06-04 14:29 | CON ---
DATE OF CONSULTATION: HISTORY OF PRESENT ILLNESS: Ammon Gant is a 60-year-old morbidly obese gentleman, 108 kg, who has been in the hospital since May 29. His blood pressure 135/60 on admission, temperature 100.6, respirations 24, saturations are 92% on 4 L, pulse 110. Over the course of the last several days, his condition was getting progressively worse. Initial CAT scan of his chest was not very impressive. Now his x-ray shows bilateral infiltrates. He has been getting remdesivir and high-dose steroids without much improvement. We were consulted. Apparently, patient does not want to go to the ICU, does not want to be intubated, he made himself a DNR. He now has coronavirus positive serology. Family members were tested, which are negative. PAST MEDICAL HISTORY: Otherwise pertinent for morbid obesity, probably sleep apnea, hyperlipidemia, high cholesterol, hypertension. PREVIOUS SURGERIES: Umbilical hernia, right knee surgery. SOCIAL HISTORY: Alcohol abuse. No tobacco abuse. HOME MEDICATIONS: 1. Lisinopril 20. 2. Lipitor 10. ALLERGIES: NONE. REVIEW OF SYSTEMS: Otherwise, negative. PHYSICAL EXAMINATION: VITAL SIGNS: On high-flow, 60%, his saturations are 92%, pulse 84, blood pressure 100/74. GENERAL: Sitting on the side of the bed. CHEST: No crackles, no wheezing. CARDIAC: Normal S1, S2. No gallops. No murmurs. ABDOMEN: Massive. EXTREMITIES: Trace edema. LABORATORY: Liver function is normal. ASSESSMENT: Coronavirus positive pneumonia, respiratory failure, morbid obesity, probably sleep apnea. PLAN: If his condition gets worse, he could try a trial of BiPAP. It appears patient does not want BiPAP at this stage. I agree with increasing the dose of steroids. Continue antibiotics, supportive care. Started vitamin C. Continue Lovenox as prescribed. This is a consultation note, 70 minutes, 50% direct patient care. Job ID: [id number]
[2020-06-04] MEDS ORDERED: Mometasone 200 MCG/Formoterol 5 MCG 120 PUFF INHALER INH SCH (18:30)
[2020-06-04] MEDS: REMDESIVIR (EUA) 100 MG in Sodium Chloride 0.9% 250 ML 230 ML IV SCH (18:36)
[2020-06-04] MEDS: Zinc Sulfate 220 MG CAP PO SCH (20:40)
[2020-06-04] MEDS: Atorvastatin Calcium 10 MG TAB PO SCH (20:40)
[2020-06-04] MEDS: cefTRIAXone\\ROCEPHIN 1 GM in Sodium Chloride 0.9% 100 ML IVPB SCH (20:41)
[2020-06-04] MEDS: Famotidine/PF 20 mg/2ml Vial SLOW IVP SCH (20:43)
[2020-06-04] MEDS: Azithromycin 500 MG in Sodium Chloride 0.9% 250 ML 250 ML IVPB SCH (22:13)
[2020-06-04] MEDS: Mometasone 200 MCG/Formoterol 5 MCG 120 PUFF INHALER INH SCH (22:13)
[2020-06-05] MEDS: guaiFENesin/Codeine Phosphate 200 mg/20 mg 10 ml UD Cup PO PRN (02:12)
[2020-06-05] MEDS: Hydrocortisone Sod Succ/PF 100 mg/2 ml Vial IVP SCH ×4 (04:17→21:25)
[2020-06-05] MEDS ORDERED: Furosemide 40 MG/4 ML VIAL SLOW IVP SCH (07:30)
[2020-06-05 07:38] LABS: ALT (SGPT) 35 U/L (8-55); AST (SGOT) 22 U/L (5-34); Albumin 3.3 g/dL (3.5-5.0); Alkaline Phosphatase 69 U/L (40-110); Bilirubin, Direct 0.2 mg/dL (0.1-0.3); Bilirubin, Total 0.3 mg/dL (0.2-1.2); Protein, Total 6.6 g/dL (6.0-8.3)
[2020-06-05] MEDS: Enoxaparin Sodium 40 MG/0.4 ML SYRINGE SC SCH ×2 (08:37→21:22)
[2020-06-05] MEDS: Famotidine/PF 20 mg/2ml Vial SLOW IVP SCH ×2 (08:37→21:22)
[2020-06-05] MEDS: guaiFENesin ER 600 MG TAB PO SCH ×2 (08:37→21:22)
[2020-06-05] MEDS: glipiZIDE 5 MG TAB PO SCH (08:37)
[2020-06-05] MEDS: Mometasone 200 MCG/Formoterol 5 MCG 120 PUFF INHALER INH SCH ×2 (08:38→21:23)
[2020-06-05] MEDS: Sodium Chloride 0.65% Nasal 44 ML BOT EA NARE SCH ×2 (08:38→21:25)
[2020-06-05] MEDS: Lisinopril 10 MG TAB PO SCH (08:38)
--- NOTE | 2020-06-05 10:19 | PRG ---
DATE OF SERVICE: SUBJECTIVE: Ammon Gant is a 60-year-old gentleman, remains in the medical floor. OBJECTIVE: VITAL SIGNS: Temperature 98, blood pressure 120/74, sats 92% on high-flow of 60. CHEST: No wheezing. No crackles. CARDIAC: Normal S1, S2. No gallops. ABDOMEN: Soft. IMPRESSION: Johnson positive pneumonia; respiratory failure, on high-flow. PLAN: He has received inhaled steroids, empiric antibiotics, vitamin C, remdesivir and plasma. Continue supportive care. Await gradual improvement . Job ID: [id number]
[2020-06-05] MEDS: HumaLOG 300 UNITS/3 ML VIAL SC PRN ×2 (12:38→18:57)
--- NOTE | 2020-06-05 14:33 | PDOC.HOSPP ---
- Subjective Encounter Date: 06/05/20 Encounter Time: 09:40 Subjective: is on high flow, oriented well wants something for cough is eating well says he is speaking to his on the phone - Objective Vital Signs & Weight: Vital Signs (12 hours) Temp Pulse Resp BP BP Pulse Ox 06/05/20 13:19 97.5 F L 84 107/64 94 L 06/05/20 10:58 88 L 06/05/20 08:38 120/74 06/05/20 08:30 92 L 06/05/20 08:28 93 L 06/05/20 07:33 86 L 06/05/20 07:29 98.4 F 78 22 H 120/74 86 L 06/05/20 06:00 83 L 06/05/20 05:00 88 L 06/05/20 04:00 98.2 F 70 22 H 121/72 92 L Weight Weight 321 lb 9.6 oz I&O: 06/04/20 06/05/20 06/06/20 06:59 06:59 06:59 Intake Total 2220 2870 Output Total 1000 850 Balance 1220 2019 Result Diagrams: 06/03/20 05:23 06/03/20 05:23 Additional Labs: Accuchecks 06/05/20 06/05/20 06/04/20 10:48 06:16 20:49 POC Glucose 211 H 172 H 264 H 06/04/20 15:58 POC Glucose 204 H Hospitalist ROS - Medication Medications: Active Medications Generic Name Dose Route Start Last Admin Trade Name Freq PRN Reason Stop Dose Admin Acetaminophen 650 mg 05/29/20 19:30 06/02/20 16:33 Acetaminophen 325 Mg Tab PO 650 mg Q4H PRN Administration Headache/Fever/Mild Pain (1-3) Atorvastatin Calcium 10 mg 05/29/20 21:00 06/04/20 20:40 Atorvastatin Calcium 10 Mg Tab PO 10 mg HS CONCHA Administration Enoxaparin Sodium 40 mg 06/01/20 21:00 06/05/20 08:37 Enoxaparin Sodium 40 Mg/0.4 Ml Syringe SC 40 mg 0900,2100 CONCHA Administration Famotidine 20 mg 06/04/20 21:00 06/05/20 08:37 Famotidine/Pf 20 Mg/2ml Vial SLOW IVP 20 mg BID CONCHA Administration Glipizide 5 mg 05/31/20 07:30 06/05/20 08:37 Glipizide 5 Mg Tab PO 5 mg DAILY-AC CONCHA Administration Guaifenesin 600 mg 06/01/20 21:00 06/05/20 08:37 Guaifenesin Er 600 Mg Tab PO 600 mg Q12HR CONCHA Administration Guaifenesin/Codeine Phosphate 10 ml 06/04/20 07:23 06/05/20 02:12 Guaifenesin/Codeine Phosphate 200 Mg/20 Mg 10 Ml Ud Cup PO 10 ml Q6H PRN Administration Cough Hydrocortisone Sodium Succinate 100 mg 06/04/20 09:00 06/05/20 08:37 Hydrocortisone Sod Succ/Pf 100 Mg/2 Ml Vial IVP 100 mg Q6H CONCHA Administration Ceftriaxone Sodium 1 gm/ 100 mls @ 200 mls/hr 05/29/20 20:00 06/04/20 20:41 Sodium Chloride IVPB 100 mls Q24HR CONCHA Administration Remdesivir 100 mg/ Sodium 250 mls @ 250 mls/hr 06/03/20 16:00 06/04/20 18:36 Chloride IV 06/06/20 16:59 250 mls 1600 CONCHA Administration Ascorbic Acid 1,500 mg/ Sodium 53 mls @ 100 mls/hr 06/04/20 12:00 06/05/20 12:38 Chloride IVPB 06/08/20 12:01 53 mls Q6HR CONCHA Administration Insulin Human Lispro 0 units 05/29/20 19:30 06/05/20 12:38 Humalog 300 Units/3 Ml Vial SC 3 unit .MILD SLIDING SCALE PRN Administration Mild Correctional Scale Insulin Human Lispro 0 units 06/02/20 21:09 06/04/20 22:14 Humalog 300 Units/3 Ml Vial SC 3 unit .BEDTIME SLIDING SC PRN Administration Bedtime Correctional Scale Lisinopril 10 mg 05/30/20 09:00 06/05/20 08:38 Lisinopril 10 Mg Tab PO 10 mg DAILY CONCHA Administration Mometasone Furoate/Formoterol Fumar 2 puff 06/04/20 21:00 06/05/20 08:38 Mometasone 200 Mcg/Formoterol 5 Mcg 120 Puff Inhaler INH 2 puff BID CONCHA Administration Sodium Chloride 10 ml 05/30/20 09:00 06/05/20 08:39 Flush - Normal Saline 10 Ml Syringe IVF 10 ml Q12HR CONCHA Administration Sodium Chloride 0 ml 06/03/20 15:15 06/05/20 08:38 Sodium Chloride 0.65% Nasal 44 Ml Bot EA NARE 2 spr BID CONCHA Administration Zinc Sulfate 220 mg 06/01/20 21:00 06/04/20 20:40 Zinc Sulfate 220 Mg Cap PO 220 mg HS CONCHA Administration - Exam General Appearance: awake alert, ill appearing Eye: anicteric sclera ENT: no oropharyngeal lesions, moist mucosa Neck: supple, no JVD Heart: RRR, no murmur Respiratory: no wheezes, rales, rhonchi Gastrointestinal: soft, non-tender, non-distended, normal bowel sounds Extremities: no cyanosis, no edema Neurological: cranial nerve grossly intact, no focal deficits Psychiatric: A&O x 3 Hosp A/P (1) Pneumonia due to COVID-19 virus Code(s): U07.1 - COVID-19; J12.89 - OTHER VIRAL PNEUMONIA Status: Acute (2) Acute respiratory failure with hypoxia Code(s): J96.01 - ACUTE RESPIRATORY FAILURE WITH HYPOXIA Status: Acute (3) Diabetes mellitus type 2 in obese Code(s): E11.9 - TYPE 2 DIABETES MELLITUS WITHOUT COMPLICATIONS; E66.9 - OBESITY, UNSPECIFIED Status: Acute (4) Hypertension Code(s): I10 - ESSENTIAL (PRIMARY) HYPERTENSION Status: Chronic Qualifiers: Hypertension type: essential hypertension Qualified Code(s): I10 - Essential (primary) hypertension (5) Obesity Code(s): E66.9 - OBESITY, UNSPECIFIED Status: Chronic Qualifiers: Obesity classification: adult class 3 (BMI >= 40) Body mass index: BMI 45.0-49.9 - Plan is on ceftriaxone, steroids, remdesivir 4/5 today, started on high flow from 06/02. first covid pcr was -ve, second pcr is +ve, d/w , started on remdesivir from 06/02. is morbidly obese, new onset dm, likely might have a component of obesity hypoventilation/janet? is on lisinopril, lipitor hemostable cta is -ve for PE but has multifocal infiltrates worse in left LL prior stress test in 10/2018 showed ef of 44% with mild diffuse hypokinesis, cta shows coronary calcium as well discussed about intubation if he gets worse, says he does not want to be intubated come what may (is aware of consequences and is oriented well) prognosis guarded spoke to and gave an update, she is aware he has severe covid pna 06/04, 06/05. She mentions to intubate him if needed, I have told her patient did not want to and is even refusing bipap. will update [facility] if patient changes his mind about intubation. has uri symptoms and I have adviced her to check if she has covid, her son got tested monday and the results are expected to come monday.
[2020-06-05] MEDS: Benzonatate 100 MG CAP PO SCH ×2 (15:10→21:22)
--- NOTE | 2020-06-05 15:53 | PDOC.EVN ---
Event Note - Event Note Event Note: patient and have changed their mind regarding intubation and want everything done if he needed now. Code status was changed to reflect family and patient's wishes.
[2020-06-05] MEDS: REMDESIVIR (EUA) 100 MG in Sodium Chloride 0.9% 250 ML 230 ML IV SCH (16:38)
[2020-06-05] MEDS: Zinc Sulfate 220 MG CAP PO SCH (21:21)
[2020-06-05] MEDS: cefTRIAXone\\ROCEPHIN 1 GM in Sodium Chloride 0.9% 100 ML IVPB SCH (21:21)
[2020-06-05] MEDS: Albuterol 200 PUFF (6.7GM INHALER) INH SCH (21:22)
[2020-06-05] MEDS: Atorvastatin Calcium 10 MG TAB PO SCH (21:22)
[2020-06-06] MEDS: Albuterol 200 PUFF (6.7GM INHALER) INH SCH ×4 (02:17→18:05)
[2020-06-06] MEDS: Hydrocortisone Sod Succ/PF 100 mg/2 ml Vial IVP SCH ×4 (04:15→20:28)
[2020-06-06 06:12] LABS: ALT (SGPT) 32 U/L (8-55); AST (SGOT) 23 U/L (5-34); Albumin 3.4 g/dL (3.5-5.0); Alkaline Phosphatase 81 U/L (40-110); Bilirubin, Direct 0.2 mg/dL (0.1-0.3); Bilirubin, Total 0.4 mg/dL (0.2-1.2); Protein, Total 6.7 g/dL (6.0-8.3)
[2020-06-06] MEDS: HumaLOG 300 UNITS/3 ML VIAL SC PRN ×4 (07:08→20:53)
[2020-06-06] MEDS: Lisinopril 10 MG TAB PO SCH (07:53)
[2020-06-06] MEDS: glipiZIDE 5 MG TAB PO SCH (07:53)
[2020-06-06] MEDS: Enoxaparin Sodium 40 MG/0.4 ML SYRINGE SC SCH ×2 (07:53→20:29)
[2020-06-06] MEDS: Benzonatate 100 MG CAP PO SCH ×3 (07:53→20:29)
[2020-06-06] MEDS: guaiFENesin ER 600 MG TAB PO SCH ×2 (07:53→20:28)
[2020-06-06] MEDS: Sodium Chloride 0.65% Nasal 44 ML BOT EA NARE SCH ×2 (07:53→20:54)
[2020-06-06] MEDS: Famotidine/PF 20 mg/2ml Vial SLOW IVP SCH ×2 (07:53→20:29)
[2020-06-06] MEDS: Mometasone 200 MCG/Formoterol 5 MCG 120 PUFF INHALER INH SCH ×2 (07:54→20:30)
[2020-06-06] MEDS: Acetaminophen 325 MG TAB PO PRN (08:42)
--- NOTE | 2020-06-06 10:06 | RAD ---
EXAM: Chest one view: HISTORY: Follow-up Covid pneumonia COMPARISON: 06/03/2020 FINDINGS: Heart size: Within normal limits. Lungs: Somewhat more diffuse alveolar and groundglass opacity changes noted throughout both lungs. No evidence for confluent lobar pneumonia, significant pleural effusion, acute edema, or pneumothorax , or other significant acute process. IMPRESSION: Persistent somewhat more diffuse alveolar and groundglass opacity changes throughout both lungs. Evid ence for pneumonia. Continued short-term follow-up.
[2020-06-06] MEDS: REMDESIVIR (EUA) 100 MG in Sodium Chloride 0.9% 250 ML 230 ML IV SCH (15:12)
--- NOTE | 2020-06-06 18:43 | PRG ---
DATE OF SERVICE: 06/06/2020 Mr. Gant continues to have stable vital signs. He is still on high-flow oxygen. Hemodynamics are stable. All therapeutic options have been administered. It is noted that he was initially DNR, now is a full code. There are no other medically therapeutic options other than supportive care with oxygen in time at this point in time. Critical radiographs will probably not show any change in the near future. X-ray today was unchanged. Job ID: [id number]
--- NOTE | 2020-06-06 18:44 | PDOC.HOSPP ---
- Subjective Encounter Date: 06/06/20 Encounter Time: 16:00 Subjective: F/u: COVID pneumonia The patient denies significant cough. He walked to the bathroom with no significant shortness of breath. He says he wants to go home He remains on high flow, is saturating 100% - Objective Vital Signs & Weight: Vital Signs (12 hours) Temp Pulse Resp BP BP Pulse Ox 06/06/20 17:22 95 06/06/20 16:13 97.6 F 70 20 93/57 L 85 L 06/06/20 12:17 98.2 F 66 20 107/71 98 06/06/20 10:35 97 06/06/20 08:22 97.8 F 68 18 112/72 97 06/06/20 08:00 97 06/06/20 07:15 97 Weight Weight 321 lb 9.6 oz I&O: 06/05/20 06/06/20 06/07/20 06:59 06:59 06:59 Intake Total 2870 1600 830 Output Total 850 1500 550 Balance 2019 100 280 Result Diagrams: 06/03/20 05:23 06/03/20 05:23 Additional Labs: Accuchecks 06/06/20 06/06/20 06/06/20 16:00 12:12 06:21 POC Glucose 306 H 213 H 177 H 06/05/20 21:47 POC Glucose 218 H Hospitalist ROS - Review of Systems Constitutional: denies: fever, chills - Medication Medications: Active Medications Generic Name Dose Route Start Last Admin Trade Name Freq PRN Reason Stop Dose Admin Acetaminophen 650 mg 05/29/20 19:30 06/06/20 08:42 Acetaminophen 325 Mg Tab PO 650 mg Q4H PRN Administration Headache/Fever/Mild Pain (1-3) Albuterol Sulfate 2 puff 06/05/20 19:00 06/06/20 18:05 Albuterol 200 Puff (6.7gm Inhaler) INH 2 puff [id number] CONCHA Administration Atorvastatin Calcium 10 mg 05/29/20 21:00 06/05/20 21:22 Atorvastatin Calcium 10 Mg Tab PO 10 mg HS CONCHA Administration Benzonatate 100 mg 06/05/20 15:00 06/06/20 15:12 Benzonatate 100 Mg Cap PO 100 mg TID CONCHA Administration Enoxaparin Sodium 40 mg 06/01/20 21:00 06/06/20 07:53 Enoxaparin Sodium 40 Mg/0.4 Ml Syringe SC 40 mg 0900,2100 CONCHA Administration Famotidine 20 mg 06/04/20 21:00 06/06/20 07:53 Famotidine/Pf 20 Mg/2ml Vial SLOW IVP 20 mg BID CONCHA Administration Glipizide 5 mg 05/31/20 07:30 06/06/20 07:53 Glipizide 5 Mg Tab PO 5 mg DAILY-AC CONCHA Administration Guaifenesin 600 mg 06/01/20 21:00 06/06/20 07:53 Guaifenesin Er 600 Mg Tab PO 600 mg Q12HR CONCHA Administration Guaifenesin/Codeine Phosphate 10 ml 06/04/20 07:23 06/05/20 02:12 Guaifenesin/Codeine Phosphate 200 Mg/20 Mg 10 Ml Ud Cup PO 10 ml Q6H PRN Administration Cough Hydrocortisone Sodium Succinate 100 mg 06/04/20 09:00 06/06/20 15:13 Hydrocortisone Sod Succ/Pf 100 Mg/2 Ml Vial IVP 100 mg Q6H CONCHA Administration Ascorbic Acid 1,500 mg/ Sodium 53 mls @ 100 mls/hr 06/04/20 12:00 06/06/20 18:05 Chloride IVPB 06/08/20 12:01 53 mls Q6HR CONCHA Administration Insulin Human Lispro 0 units 05/29/20 19:30 06/06/20 17:13 Humalog 300 Units/3 Ml Vial SC 5 unit .MILD SLIDING SCALE PRN Administration Mild Correctional Scale Insulin Human Lispro 0 units 06/02/20 21:09 06/04/20 22:14 Humalog 300 Units/3 Ml Vial SC 3 unit .BEDTIME SLIDING SC PRN Administration Bedtime Correctional Scale Lisinopril 10 mg 05/30/20 09:00 06/06/20 07:53 Lisinopril 10 Mg Tab PO 10 mg DAILY CONCHA Administration Mometasone Furoate/Formoterol Fumar 2 puff 06/04/20 21:00 06/06/20 07:54 Mometasone 200 Mcg/Formoterol 5 Mcg 120 Puff Inhaler INH 2 puff BID CONCHA Administration Sodium Chloride 10 ml 05/30/20 09:00 11/07/20 07:54 Flush - Normal Saline 10 Ml Syringe IVF 10 ml Q12HR CONCHA Administration Sodium Chloride 0 ml 06/03/20 15:15 06/06/20 07:53 Sodium Chloride 0.65% Nasal 44 Ml Bot EA NARE 2 spr BID CONCHA Administration Zinc Sulfate 220 mg 06/01/20 21:00 06/05/20 21:21 Zinc Sulfate 220 Mg Cap PO 220 mg HS CONCHA Administration - Exam General Appearance: NAD, awake alert General - other findings: morbidly obese Eye: PERRL, anicteric sclera ENT: normocephalic atraumatic, no oropharyngeal lesions Neck: no JVD Heart: RRR, no murmur, no gallops, no rubs Respiratory - other findings: diminished breath sounds Gastrointestinal: soft, non-tender, non-distended, normal bowel sounds Extremities: no cyanosis, no clubbing, no edema Skin: normal turgor, no lesions, no rashes Neurological: cranial nerve grossly intact, normal sensation to touch, no focal deficits, no new deficit Hosp A/P - Plan CT chest: multifocal pneumonia. No PE. Small pericardial effusion This is a 60 year old male patient with past medical history of Acute hypoxic respiratory failure secondary to COVID pneumonia - still on high flow nasal cannula. Attempt to wean oxygen to 92%. He received IV ceftriaxone from 05/29 to 06/06 and remdesivir for four days - continue therapeutic lovenox - will wean steroids to 50 mg q6 hours - will place PT eval Hypertension - continue lisinopril Hyperlipidemia - continue atorvastatin
[2020-06-06] MEDS: Zinc Sulfate 220 MG CAP PO SCH (20:28)
[2020-06-06] MEDS: Atorvastatin Calcium 10 MG TAB PO SCH (20:29)
[2020-06-07] MEDS: Albuterol 200 PUFF (6.7GM INHALER) INH SCH ×4 (00:09→18:02)
[2020-06-07] MEDS: Hydrocortisone Sod Succ/PF 100 mg/2 ml Vial IVP SCH ×4 (03:07→20:47)
[2020-06-07] MEDS: guaiFENesin/Codeine Phosphate 200 mg/20 mg 10 ml UD Cup PO PRN ×2 (03:48→11:36)
[2020-06-07] MEDS: HumaLOG 300 UNITS/3 ML VIAL SC PRN ×3 (05:16→21:15)
[2020-06-07 05:53] LABS: Hemoglobin 13.1 g/dL (14.0-18.0); Mean Corpuscular HGB CONC 34.3 g/dL (32.0-36.0); Mean Corpuscular Hemoglobin 31.1 pg (27.0-31.0); Mean Corpuscular Volume 90.7 fL (78.0-98.0); Mean Platelet Volume 6.6 fL (7.4-10.4); Platelet Count 407 thou/uL (130-400); White Blood Cell (WBC) Count 10.6 thou/uL (4.8-10.8)
[2020-06-07 06:14] LABS: Anion Gap 15 mmol/L (10-20); BUN (Urea Nitrogen) 23 mg/dL (8.4-25.7); Calc. Creatinine Clearance 142 mL/min (70-130); Calcium 8.4 mg/dL (7.8-10.44); Carbon Dioxide 23 mmol/L (22-29); Chloride 104 mmol/L (98-107); Estimated GFR-MDRD 64; Glucose 226 mg/dL (70-105); Potassium 3.7 mmol/L (3.5-5.1); Sodium 138 mmol/L (136-145)
[2020-06-07] MEDS: Benzonatate 100 MG CAP PO SCH ×3 (08:23→20:48)
[2020-06-07] MEDS: guaiFENesin ER 600 MG TAB PO SCH ×2 (08:23→20:48)
[2020-06-07] MEDS: glipiZIDE 5 MG TAB PO SCH (08:23)
[2020-06-07] MEDS: Lisinopril 10 MG TAB PO SCH (08:23)
[2020-06-07] MEDS: Famotidine/PF 20 mg/2ml Vial SLOW IVP SCH (08:23)
[2020-06-07] MEDS: Enoxaparin Sodium 40 MG/0.4 ML SYRINGE SC SCH ×2 (08:23→20:48)
[2020-06-07] MEDS: Mometasone 200 MCG/Formoterol 5 MCG 120 PUFF INHALER INH SCH ×2 (08:24→20:48)
[2020-06-07] MEDS: Sodium Chloride 0.65% Nasal 44 ML BOT EA NARE SCH ×2 (08:24→21:15)
[2020-06-07] MEDS ORDERED: Famotidine 20 MG TAB PO SCH (10:15)
[2020-06-07] MEDS: Acetaminophen 325 MG TAB PO PRN (11:36)
--- NOTE | 2020-06-07 16:47 | PDOC.HOSPP ---
- Subjective Encounter Date: 06/07/20 Encounter Time: 09:00 Subjective: F/u: COVID The patient had desaturated yesterday to high 80's on high flow nasal cannula. This morning he is around 91% on high flow. Patient states he has been in bed all day and has not gotten up He denies significant SOB Or cough . He is very tired - Objective Vital Signs & Weight: Vital Signs (12 hours) Temp Pulse Resp BP BP Pulse Ox 06/07/20 15:06 97.5 F L 72 20 118/83 95 06/07/20 13:13 93 L 06/07/20 12:43 96 06/07/20 11:22 98 F 71 20 101/64 96 06/07/20 10:03 94 L 06/07/20 08:48 97.8 F 75 24 H 143/101 H 88 L 06/07/20 08:23 88 L 06/07/20 06:00 98.2 F 69 20 107/65 93 L Weight Weight 321 lb 9.6 oz I&O: 06/06/20 06/07/20 06/08/20 06:59 06:59 06:59 Intake Total 1600 1730 Output Total 1500 1150 Balance 100 580 Result Diagrams: 06/07/20 05:34 06/07/20 05:34 Additional Labs: Accuchecks 06/07/20 06/07/20 06/06/20 15:56 11:15 20:38 POC Glucose 166 H 175 H 284 H Hospitalist ROS - Review of Systems Constitutional: denies: fever, chills - Medication Medications: Active Medications Generic Name Dose Route Start Last Admin Trade Name Yusra PRN Reason Stop Dose Admin Acetaminophen 650 mg 05/29/20 19:30 06/07/20 11:36 Acetaminophen 325 Mg Tab PO 650 mg Q4H PRN Administration Headache/Fever/Mild Pain (1-3) Albuterol Sulfate 2 puff 06/05/20 19:00 06/07/20 13:06 Albuterol 200 Puff (6.7gm Inhaler) INH 2 puff [id number] CONCHA Administration Atorvastatin Calcium 10 mg 05/29/20 21:00 06/06/20 20:29 Atorvastatin Calcium 10 Mg Tab PO 10 mg HS CONCHA Administration Benzonatate 100 mg 06/05/20 15:00 06/07/20 14:19 Benzonatate 100 Mg Cap PO 100 mg TID CONCHA Administration Enoxaparin Sodium 40 mg 06/01/20 21:00 06/07/20 08:23 Enoxaparin Sodium 40 Mg/0.4 Ml Syringe SC 40 mg 09,2099 CONCHA Administration Glipizide 5 mg 05/31/20 07:30 06/07/20 08:23 Glipizide 5 Mg Tab PO 5 mg DAILY-AC CONCHA Administration Guaifenesin 600 mg 06/01/20 21:00 06/07/20 08:23 Guaifenesin Er 600 Mg Tab PO 600 mg Q12HR CONCHA Administration Guaifenesin/Codeine Phosphate 10 ml 06/04/20 07:23 06/07/20 11:36 Guaifenesin/Codeine Phosphate 200 Mg/20 Mg 10 Ml Ud Cup PO 10 ml Q6H PRN Administration Cough Hydrocortisone Sodium Succinate 50 mg 06/06/20 21:00 06/07/20 14:19 Hydrocortisone Sod Succ/Pf 100 Mg/2 Ml Vial IVP 50 mg 0300,0900,1500,2099 CONCHA Administration Ascorbic Acid 1,500 mg/ Sodium 53 mls @ 100 mls/hr 06/04/20 12:00 06/07/20 11:36 Chloride IVPB 06/08/20 12:01 53 mls Q6HR CONCHA Administration Insulin Human Lispro 0 units 05/29/20 19:30 06/07/20 05:16 Humalog 300 Units/3 Ml Vial SC 3 unit .MILD SLIDING SCALE PRN Administration Mild Correctional Scale Insulin Human Lispro 0 units 06/02/20 21:09 06/06/20 20:53 Humalog 300 Units/3 Ml Vial SC 3 unit .BEDTIME SLIDING SC PRN Administration Bedtime Correctional Scale Lisinopril 10 mg 05/30/20 09:00 06/07/20 08:23 Lisinopril 10 Mg Tab PO 10 mg DAILY CONCHA Administration Mometasone Furoate/Formoterol Fumar 2 puff 06/04/20 21:00 06/07/20 08:24 Mometasone 200 Mcg/Formoterol 5 Mcg 120 Puff Inhaler INH 2 puff BID CONCHA Administration Sodium Chloride 10 ml 05/30/20 09:00 06/07/20 08:24 Flush - Normal Saline 10 Ml Syringe IVF 10 ml Q12HR CONCHA Administration Sodium Chloride 0 ml 06/03/20 15:15 06/07/20 08:24 Sodium Chloride 0.65% Nasal 44 Ml Bot EA NARE 2 spr BID CONCHA Administration Zinc Sulfate 220 mg 06/01/20 21:00 06/06/20 20:28 Zinc Sulfate 220 Mg Cap PO 220 mg HS CONCHA Administration - Exam General Appearance: NAD, awake alert Eye: PERRL, anicteric sclera ENT: normocephalic atraumatic, no oropharyngeal lesions Neck: no JVD Heart: RRR, no murmur, no gallops, no rubs Respiratory: CTAB, no wheezes, no rales, no ronchi Gastrointestinal: soft, non-tender, non-distended, normal bowel sounds Extremities: no cyanosis, no clubbing, no edema Skin: normal turgor, no lesions, no rashes Hosp A/P - Plan CT chest: multifocal pneumonia. No PE. Small pericardial effusion Chest X ray 06/06: bilateral pneumonia This is a 60 year old male patient with past medical history of Acute hypoxic respiratory failure secondary to COVID pneumonia -chest X ray 06/06 showed bilateral pneumonia. He is still on high flow nasal cannula. Attempt to wean oxygen to 92%. He received IV ceftriaxone from 05/29 to 06/06 and remdesivir for four days - continue therapeutic lovenox - weaned steroids to 50 mg q6 hours - PT is following Hypertension - continue lisinopril Hyperlipidemia - continue atorvastatin
[2020-06-07] MEDS: Atorvastatin Calcium 10 MG TAB PO SCH (20:48)
[2020-06-07] MEDS: Zinc Sulfate 220 MG CAP PO SCH (20:48)
[2020-06-07] MEDS: Famotidine 20 MG TAB PO SCH (20:48)
[2020-06-08] MEDS: Albuterol 200 PUFF (6.7GM INHALER) INH SCH ×4 (00:25→18:15)
[2020-06-08] MEDS: Hydrocortisone Sod Succ/PF 100 mg/2 ml Vial IVP SCH ×4 (03:07→20:27)
[2020-06-08] MEDS: HumaLOG 300 UNITS/3 ML VIAL SC PRN ×4 (06:18→20:48)
[2020-06-08] MEDS: Benzonatate 100 MG CAP PO SCH ×3 (08:29→20:26)
[2020-06-08] MEDS: guaiFENesin ER 600 MG TAB PO SCH ×2 (08:29→20:26)
[2020-06-08] MEDS: Famotidine 20 MG TAB PO SCH ×2 (08:29→20:26)
[2020-06-08] MEDS: Lisinopril 10 MG TAB PO SCH (08:29)
[2020-06-08] MEDS: glipiZIDE 5 MG TAB PO SCH (08:29)
[2020-06-08] MEDS: Enoxaparin Sodium 40 MG/0.4 ML SYRINGE SC SCH ×2 (08:29→20:26)
[2020-06-08] MEDS: Sodium Chloride 0.65% Nasal 44 ML BOT EA NARE SCH ×2 (08:31→20:57)
[2020-06-08] MEDS: Mometasone 200 MCG/Formoterol 5 MCG 120 PUFF INHALER INH SCH ×2 (08:31→20:29)
--- NOTE | 2020-06-08 19:27 | PDOC.HOSPP ---
- Subjective Encounter Date: 06/08/20 Encounter Time: 13:00 Subjective: The patient continues to have a dry cough with some mild shortness of breath. He is still on high flow. The patient states he wants to go home. I explained that he wouldn't be able to go home without oxygen, so he is willing to stay and says he does not want to . He reports no desire to go the ICU and does not want to be intubated or have a mask . When I asked, what about in an emergency, he states " there will be no emergency. " - Objective Vital Signs & Weight: Vital Signs (12 hours) Temp Pulse Resp BP BP Pulse Ox 06/08/20 17:03 98 F 76 24 H 135/84 97 06/08/20 11:48 98.2 F 71 24 H 114/78 93 L 06/08/20 07:47 92 L Weight Admit Weight 321 lb 9.6 oz Weight 321 lb 9.6 oz I&O: 06/07/20 06/08/20 06/09/20 06:59 06:59 06:59 Intake Total 1730 1180 900 Output Total 1150 Balance 580 1180 900 Result Diagrams: 06/07/20 05:34 06/07/20 05:34 Additional Labs: Accuchecks 06/08/20 06/08/20 06/08/20 16:53 11:41 06:04 POC Glucose 233 H 179 H 174 H 06/07/20 06/07/20 20:55 05:05 POC Glucose 235 H 220 H Hospitalist ROS - Review of Systems Constitutional: denies: fever, chills - Medication Medications: Active Medications Generic Name Dose Route Start Last Admin Trade Name Freq PRN Reason Stop Dose Admin Acetaminophen 650 mg 05/29/20 19:30 06/07/20 11:36 Acetaminophen 325 Mg Tab PO 650 mg Q4H PRN Administration Headache/Fever/Mild Pain (1-3) Albuterol Sulfate 2 puff 06/05/20 19:00 06/08/20 18:15 Albuterol 200 Puff (6.7gm Inhaler) INH 2 puff [id number] CON[facility] Administration Atorvastatin Calcium 10 mg 05/29/20 21:00 06/07/20 20:48 Atorvastatin Calcium 10 Mg Tab PO 10 mg HS CON[facility] Administration Benzonatate 100 mg 06/05/20 15:00 06/08/20 14:04 Benzonatate 100 Mg Cap PO 100 mg TID CON[facility] Administration Enoxaparin Sodium 40 mg 06/01/20 21:00 06/08/20 08:29 Enoxaparin Sodium 40 Mg/0.4 Ml Syringe SC 40 mg 0900,2100 CON[facility] Administration Famotidine 20 mg 06/07/20 21:00 06/08/20 08:29 Famotidine 20 Mg Tab PO 20 mg BID CON[facility] Administration Glipizide 5 mg 05/31/20 07:30 06/08/20 08:29 Glipizide 5 Mg Tab PO 5 mg DAILY-AC CON[facility] Administration Guaifenesin 600 mg 06/01/20 21:00 06/08/20 08:29 Guaifenesin Er 600 Mg Tab PO 600 mg Q12HR [facility] Administration Guaifenesin/Codeine Phosphate 10 ml 06/04/20 07:23 06/07/20 11:36 Guaifenesin/Codeine Phosphate 200 Mg/20 Mg 10 Ml Ud Cup PO 10 ml Q6H PRN Administration Cough Hydrocortisone Sodium Succinate 50 mg 06/06/20 21:00 06/08/20 14:04 Hydrocortisone Sod Succ/Pf 100 Mg/2 Ml Vial IVP 50 mg 0300,0900,1500,2100 CON[facility] Administration Insulin Human Lispro 0 units 05/29/20 19:30 06/08/20 18:14 Humalog 300 Units/3 Ml Vial SC 3 unit .MILD SLIDING SCALE PRN Administration Mild Correctional Scale Insulin Human Lispro 0 units 06/02/20 21:09 06/07/20 21:15 Humalog 300 Units/3 Ml Vial SC 2 unit .BEDTIME SLIDING SC PRN Administration Bedtime Correctional Scale Lisinopril 10 mg 05/30/20 09:00 06/08/20 08:29 Lisinopril 10 Mg Tab PO 10 mg DAILY CON[facility] Administration Mometasone Furoate/Formoterol Fumar 2 puff 06/04/20 21:00 06/08/20 08:31 Mometasone 200 Mcg/Formoterol 5 Mcg 120 Puff Inhaler INH 2 puff BID CON[facility] Administration Sodium Chloride 10 ml 05/30/20 09:00 06/08/20 08:31 Flush - Normal Saline 10 Ml Syringe IVF 10 ml Q12HR CON[facility] Administration Sodium Chloride 0 ml 06/03/20 15:15 06/08/20 08:31 Sodium Chloride 0.65% Nasal 44 Ml Bot EA NARE 2 spr BID CON[facility] Administration Zinc Sulfate 220 mg 06/01/20 21:00 06/07/20 20:48 Zinc Sulfate 220 Mg Cap PO 220 mg HS CONCHA Administration - Exam General Appearance: NAD, awake alert Eye: PERRL, anicteric sclera ENT: normocephalic atraumatic, no oropharyngeal lesions Neck: no JVD Heart: RRR, no murmur, no gallops, no rubs, normal peripheral pulses Respiratory: CTAB, no wheezes, no rales, no ronchi Gastrointestinal: soft, non-tender, non-distended, normal bowel sounds, no palpable masses, no hepatomegaly, no splenomegaly, no bruit Extremities: no cyanosis, no clubbing, no edema Skin: normal turgor, no lesions, no rashes Neurological: cranial nerve grossly intact, normal sensation to touch, no focal deficits, no new deficit Hosp A/P - Plan CT chest: multifocal pneumonia. No PE. Small pericardial effusion Chest X ray 06/06: bilateral pneumonia This is a 60 year old male patient with past medical history of Acute hypoxic respiratory failure secondary to COVID pneumonia -chest X ray 06/06 showed bilateral pneumonia. He is still on high flow nasal cannula. Attempt to wean oxygen to 92%. He received IV ceftriaxone from 05/29 to 06/06 and azithromycin 05/30 to 06/04 and remdesivir for five days - continue therapeutic lovenox - continue steroids 50 mg q6 hours -wean oxygen as tolerated Hypertension - continue lisinopril Hyperlipidemia - continue atorvastatin Code status: will change to DNI
[2020-06-08] MEDS: Atorvastatin Calcium 10 MG TAB PO SCH (20:26)
[2020-06-08] MEDS: Acetaminophen 325 MG TAB PO PRN (20:30)
[2020-06-08] MEDS: Zinc Sulfate 220 MG CAP PO SCH (20:30)
[2020-06-09] MEDS: Albuterol 200 PUFF (6.7GM INHALER) INH SCH ×4 (01:49→18:25)
[2020-06-09] MEDS: Hydrocortisone Sod Succ/PF 100 mg/2 ml Vial IVP SCH ×4 (02:00→21:24)
[2020-06-09 06:16] LABS: Hemoglobin 13.3 g/dL (14.0-18.0); Mean Corpuscular HGB CONC 33.4 g/dL (32.0-36.0); Mean Corpuscular Hemoglobin 30.5 pg (27.0-31.0); Mean Corpuscular Volume 91.2 fL (78.0-98.0); Mean Platelet Volume 6.1 fL (7.4-10.4); Platelet Count 464 thou/uL (130-400); RBC Distribution Width 13.2 % (11.5-14.5); Red Blood Cell (RBC) Count 4.36 mill/uL (4.70-6.10); White Blood Cell (WBC) Count 7.5 thou/uL (4.8-10.8)
[2020-06-09] MEDS: HumaLOG 300 UNITS/3 ML VIAL SC PRN (06:28)
[2020-06-09 06:44] LABS: Anion Gap 12 mmol/L (10-20); BUN (Urea Nitrogen) 18 mg/dL (8.4-25.7); Calc. Creatinine Clearance 187 mL/min (70-130); Calcium 8.5 mg/dL (7.8-10.44); Carbon Dioxide 25 mmol/L (22-29); Chloride 104 mmol/L (98-107); Estimated GFR-MDRD 88; Glucose 188 mg/dL (70-105); Potassium 3.7 mmol/L (3.5-5.1); Sodium 137 mmol/L (136-145)
[2020-06-09] MEDS: Lisinopril 10 MG TAB PO SCH (08:22)
[2020-06-09] MEDS: guaiFENesin ER 600 MG TAB PO SCH ×2 (08:22→21:24)
[2020-06-09] MEDS: glipiZIDE 5 MG TAB PO SCH (08:22)
[2020-06-09] MEDS: Famotidine 20 MG TAB PO SCH ×2 (08:22→21:23)
[2020-06-09] MEDS: Benzonatate 100 MG CAP PO SCH ×3 (08:22→21:24)
[2020-06-09] MEDS: Mometasone 200 MCG/Formoterol 5 MCG 120 PUFF INHALER INH SCH ×2 (08:23→21:49)
[2020-06-09] MEDS: Enoxaparin Sodium 40 MG/0.4 ML SYRINGE SC SCH ×2 (08:23→21:24)
[2020-06-09] MEDS: Sodium Chloride 0.65% Nasal 44 ML BOT EA NARE SCH (08:24)
--- NOTE | 2020-06-09 17:32 | PDOC.HOSPP ---
- Subjective Encounter Date: 06/09/20 Encounter Time: 09:00 Subjective: F/u: COVID Patient denies any shortness of breath or cough. He is adamant on going home. I explained to the patient again that his O2 saturations were 88 to 89% on high flow and would therefore be much lower on nasal cannula. I explained that if he were to go home he would pass away from hypoxia. Respiratory tried to put the patient on 5 L nasal cannula and his O2 saturation dropped to the mid 70s. Patient states he is not interested in dying yet. He is not interested in going to any rehab. - Objective Vital Signs & Weight: Vital Signs (12 hours) Temp Pulse Resp BP Pulse Ox 06/09/20 13:45 18 98 06/09/20 11:16 92 L 06/09/20 08:25 92 L 06/09/20 08:15 97.9 F 79 18 130/82 92 L Weight Admit Weight 321 lb 9.6 oz Weight 321 lb 9.6 oz I&O: 06/08/20 06/09/20 06/10/20 06:59 06:59 06:59 Intake Total 1180 900 Balance 1180 900 Result Diagrams: 06/09/20 05:50 06/09/20 05:50 Additional Labs: Accuchecks 06/09/20 06/09/20 06/09/20 17:16 13:47 06:28 POC Glucose 148 H 165 H 196 H 06/08/20 20:40 POC Glucose 277 H Hospitalist ROS - Review of Systems Constitutional: denies: fever, chills - Medication Medications: Active Medications Generic Name Dose Route Start Last Admin Trade Name Freq PRN Reason Stop Dose Admin Acetaminophen 650 mg 05/29/20 19:30 06/08/20 20:30 Acetaminophen 325 Mg Tab PO 650 mg Q4H PRN Administration Headache/Fever/Mild Pain (1-3) Albuterol Sulfate 2 puff 06/05/20 19:00 06/09/20 13:15 Albuterol 200 Puff (6.7gm Inhaler) INH 2 puff [id number] [facility] Administration Atorvastatin Calcium 10 mg 05/29/20 21:00 06/08/20 20:26 Atorvastatin Calcium 10 Mg Tab PO 10 mg HS CON[facility] Administration Benzonatate 100 mg 06/05/20 15:00 06/09/20 17:11 Benzonatate 100 Mg Cap PO 100 mg TID CON[facility] Administration Enoxaparin Sodium 40 mg 06/01/20 21:00 06/09/20 08:23 Enoxaparin Sodium 40 Mg/0.4 Ml Syringe SC 40 mg 0900,2100 CON[facility] Administration Famotidine 20 mg 06/07/20 21:00 06/09/20 08:22 Famotidine 20 Mg Tab PO 20 mg BID CON[facility] Administration Glipizide 5 mg 05/31/20 07:30 06/09/20 08:22 Glipizide 5 Mg Tab PO 5 mg DAILY-AC [facility] Administration Guaifenesin 600 mg 06/01/20 21:00 06/09/20 08:22 Guaifenesin Er 600 Mg Tab PO 600 mg Q12HR [facility] Administration Guaifenesin/Codeine Phosphate 10 ml 06/04/20 07:23 06/07/20 11:36 Guaifenesin/Codeine Phosphate 200 Mg/20 Mg 10 Ml Ud Cup PO 10 ml Q6H PRN Administration Cough Hydrocortisone Sodium Succinate 50 mg 06/06/20 21:00 06/09/20 17:11 Hydrocortisone Sod Succ/Pf 100 Mg/2 Ml Vial IVP 50 mg 0300,0900,1500,2100 CON[facility] Administration Insulin Human Lispro 0 units 05/29/20 19:30 06/09/20 06:28 Humalog 300 Units/3 Ml Vial SC 2 unit .MILD SLIDING SCALE PRN Administration Mild Correctional Scale Insulin Human Lispro 0 units 06/02/20 21:09 06/08/20 20:48 Humalog 300 Units/3 Ml Vial SC 3 unit .BEDTIME SLIDING SC PRN Administration Bedtime Correctional Scale Lisinopril 10 mg 05/30/20 09:00 06/09/20 08:22 Lisinopril 10 Mg Tab PO 10 mg DAILY CON[facility] Administration Mometasone Furoate/Formoterol Fumar 2 puff 06/04/20 21:00 06/09/20 08:23 Mometasone 200 Mcg/Formoterol 5 Mcg 120 Puff Inhaler INH 2 puff BID CON[facility] Administration Sodium Chloride 10 ml 05/30/20 09:00 06/09/20 08:24 Flush - Normal Saline 10 Ml Syringe IVF 10 ml Q12HR CON[facility] Administration Sodium Chloride 0 ml 06/03/20 15:15 06/09/20 08:24 Sodium Chloride 0.65% Nasal 44 Ml Bot EA NARE 1 spr BID CON[facility] Administration Zinc Sulfate 220 mg 06/01/20 21:00 06/08/20 20:30 Zinc Sulfate 220 Mg Cap PO 220 mg HS CON[facility] Administration - Exam General Appearance: NAD, awake alert General - other findings: obese Eye: PERRL, anicteric sclera ENT: normocephalic atraumatic, no oropharyngeal lesions Neck: no JVD Heart: RRR, no murmur, no gallops, no rubs Respiratory: CTAB, no wheezes, no rales, no ronchi Gastrointestinal: soft, non-tender, non-distended, normal bowel sounds Extremities: no cyanosis, no clubbing, no edema Skin: normal turgor, no lesions, no rashes Neurological: cranial nerve grossly intact, normal sensation to touch, no weakness Musculoskeletal: normal tone, normal strength, no muscle wasting Psychiatric: normal affect, normal behavior, A&O x 3 Hosp A/P - Plan CT chest: multifocal pneumonia. No PE. Small pericardial effusion Chest X ray 06/06: bilateral pneumonia This is a 60 year old male patient with past medical history of Acute hypoxic respiratory failure secondary to COVID pneumonia -chest X ray 06/06 showed bilateral pneumonia. He is still on high flow nasal cannula. Attempt to wean oxygen to 92%. He received IV ceftriaxone from 05/29 to 06/06 and azithromycin 05/30 to 06/04 and remdesivir for five days - continue therapeutic lovenox - continue steroids 50 mg q6 hours -due to persistent hypoxia, will trial IV zosyn to see if there is bacterial component. Will order an ABG to see if patient will qualify for BIPAP, although doubt patient will be agreeable to this Hypertension - continue lisinopril Hyperlipidemia - continue atorvastatin Code status: DNI
[2020-06-09 17:48] LABS: Actual Bicarbonate (HCO3a) 24.1 mEq/L (22-28); CO2 Tension 33.8 mmHg (35.0-45.0); Calcium, Ionized (arterial) 1.16 mmol/L (1.12-1.30); Carboxyhemoglobin (COHb) 0.3 gm% (0.0-3.0); Potassium - ABG Lab 3.58 mmol/L (3.70-5.30); pH, Arterial 7.47 (7.35-7.45)
[2020-06-09 17:49] LABS: O2 Tension (PaO2), arterial 43.5 mmHg (80.0-100.0); Puncture Site RRA
--- NOTE | 2020-06-09 17:56 | PDOC.EVN ---
Event Note - Event Note Event Note: The patient's ABG showed a pO2 of 40. He is not hypercapneic. The patient is agreeable to trying CPAP/BIPAP. He states " as long as you don't stick something down my throat. " He is agreeable to IMCU transfer
[2020-06-09] MEDS: Piperacillin/Tazobactam 3.375 GM in Sodium Chloride 0.9% 100 ML IVPB SCH (17:58)
[2020-06-09] MEDS: Acetaminophen 325 MG TAB PO PRN (17:59)
[2020-06-09] MEDS: Atorvastatin Calcium 10 MG TAB PO SCH (21:23)
[2020-06-10] MEDS: Zinc Sulfate 220 MG CAP PO SCH ×2 (01:23→20:25)
[2020-06-10] MEDS: Piperacillin/Tazobactam 3.375 GM in Sodium Chloride 0.9% 100 ML IVPB SCH ×4 (01:23→17:40)
[2020-06-10] MEDS: Sodium Chloride 0.65% Nasal 44 ML BOT EA NARE SCH ×3 (01:24→20:27)
[2020-06-10] MEDS: Hydrocortisone Sod Succ/PF 100 mg/2 ml Vial IVP SCH ×4 (03:57→20:26)
[2020-06-10] MEDS: Albuterol 200 PUFF (6.7GM INHALER) INH SCH ×4 (03:57→20:26)
[2020-06-10] MEDS: Lisinopril 10 MG TAB PO SCH (08:05)
[2020-06-10] MEDS: Benzonatate 100 MG CAP PO SCH ×3 (08:05→20:25)
[2020-06-10] MEDS: Famotidine 20 MG TAB PO SCH ×2 (08:05→20:25)
[2020-06-10] MEDS: glipiZIDE 5 MG TAB PO SCH (08:06)
[2020-06-10] MEDS: guaiFENesin ER 600 MG TAB PO SCH ×2 (08:06→20:25)
[2020-06-10] MEDS: Enoxaparin Sodium 40 MG/0.4 ML SYRINGE SC SCH ×2 (08:07→20:25)
[2020-06-10] MEDS: Mometasone 200 MCG/Formoterol 5 MCG 120 PUFF INHALER INH SCH ×2 (08:54→20:26)
--- NOTE | 2020-06-10 17:25 | PDOC.HOSPP ---
- Subjective Encounter Date: 06/10/20 Encounter Time: 17:23 Subjective: f/u: COVID The patient has been on BIPAP all morning. He states he is thirsty and wants to drink water. He is on 100% FiO2. He denies excessive cough or shortness of breath - Objective Vital Signs & Weight: Vital Signs (12 hours) Temp Pulse Pulse Pulse Resp BP BP 06/10/20 17:04 06/10/20 15:15 98.0 F 06/10/20 12:50 70 22 H 06/10/20 12:00 97.7 F 06/10/20 11:15 80 76 127/56 L 06/10/20 08:05 120/74 06/10/20 08:00 97.6 F BP Pulse Ox Pulse Ox Pulse Ox 06/10/20 17:04 93 L 06/10/20 15:15 06/10/20 12:50 99 06/10/20 12:00 06/10/20 11:15 146/96 H 95 94 L 06/10/20 08:05 06/10/20 08:00 95 Weight Admit Weight 321 lb 9.6 oz Weight 321 lb 9.6 oz Most Recent Monitor Data Heart Rate from ECG 72 NIBP 152/92 NIBP BP-Mean 112 Respiration from ECG 13 SpO2 93 I&O: 06/09/20 06/10/20 06/11/20 06:59 06:59 06:59 Intake Total 900 1200 Balance 900 1200 Result Diagrams: 06/09/20 05:50 06/09/20 05:50 Additional Labs: Accuchecks 06/10/20 06/10/20 06/09/20 16:55 12:02 20:59 POC Glucose 160 H 147 H 189 H 06/09/20 17:16 POC Glucose 148 H Hospitalist ROS - Review of Systems Constitutional: denies: fever, chills - Medication Medications: Active Medications Generic Name Dose Route Start Last Admin Trade Name Freq PRN Reason Stop Dose Admin Acetaminophen 650 mg 05/29/20 19:30 06/09/20 17:59 Acetaminophen 325 Mg Tab PO 650 mg Q4H PRN Administration Headache/Fever/Mild Pain (1-3) Albuterol Sulfate 2 puff 06/05/20 19:00 06/10/20 13:34 Albuterol 200 Puff (6.7gm Inhaler) INH 2 puff [id number] CON[facility] Administration Atorvastatin Calcium 10 mg 05/29/20 21:00 06/09/20 21:23 Atorvastatin Calcium 10 Mg Tab PO 10 mg HS CON[facility] Administration Benzonatate 100 mg 06/05/20 15:00 06/10/20 14:43 Benzonatate 100 Mg Cap PO 100 mg TID CON[facility] Administration Enoxaparin Sodium 40 mg 06/01/20 21:00 06/10/20 08:07 Enoxaparin Sodium 40 Mg/0.4 Ml Syringe SC 40 mg 0900,2099 CON[facility] Administration Famotidine 20 mg 06/07/20 21:00 06/10/20 08:05 Famotidine 20 Mg Tab PO 20 mg BID CON[facility] Administration Glipizide 5 mg 05/31/20 07:30 06/10/20 08:06 Glipizide 5 Mg Tab PO 5 mg DAILY-AC [facility] Administration Guaifenesin 600 mg 06/01/20 21:00 06/10/20 08:06 Guaifenesin Er 600 Mg Tab PO 600 mg Q12HR [facility] Administration Guaifenesin/Codeine Phosphate 10 ml 06/04/20 07:23 06/07/20 11:36 Guaifenesin/Codeine Phosphate 200 Mg/20 Mg 10 Ml Ud Cup PO 10 ml Q6H PRN Administration Cough Hydrocortisone Sodium Succinate 50 mg 06/06/20 21:00 06/10/20 14:43 Hydrocortisone Sod Succ/Pf 100 Mg/2 Ml Vial IVP 50 mg 0300,0900,1500,2100 CON[facility] Administration Piperacillin Sod/Tazobactam 100 mls @ 200 mls/hr 06/09/20 18:00 06/10/20 11:56 Sod 3.375 gm/ Sodium Chloride IVPB 100 mls Q6HR CON[facility] Administration Insulin Human Lispro 0 units 05/29/20 19:30 06/09/20 06:28 Humalog 300 Units/3 Ml Vial SC 2 unit .MILD SLIDING SCALE PRN Administration Mild Correctional Scale Insulin Human Lispro 0 units 06/02/20 21:09 06/08/20 20:48 Humalog 300 Units/3 Ml Vial SC 3 unit .BEDTIME SLIDING SC PRN Administration Bedtime Correctional Scale Lisinopril 10 mg 05/30/20 09:00 06/10/20 08:05 Lisinopril 10 Mg Tab PO 10 mg DAILY CON[facility] Administration Mometasone Furoate/Formoterol Fumar 2 puff 06/04/20 21:00 06/10/20 08:54 Mometasone 200 Mcg/Formoterol 5 Mcg 120 Puff Inhaler INH Not Given BID CON[facility] Sodium Chloride 10 ml 05/30/20 09:00 06/10/20 08:09 Flush - Normal Saline 10 Ml Syringe IVF 10 ml Q12HR [facility] Administration Sodium Chloride 0 ml 06/03/20 15:15 06/10/20 08:54 Sodium Chloride 0.65% Nasal 44 Ml Bot EA NARE Not Given BID CON[facility] Zinc Sulfate 220 mg 06/01/20 21:00 06/10/20 01:23 Zinc Sulfate 220 Mg Cap PO 220 mg HS CONCHA Administration - Exam General Appearance: NAD, awake alert General - other findings: morbidliy obese Eye: PERRL, anicteric sclera ENT: normocephalic atraumatic, no oropharyngeal lesions Neck: supple, no JVD Heart: RRR, no murmur, no gallops, no rubs Respiratory: CTAB, no wheezes, no rales, no ronchi Gastrointestinal: soft, non-tender, non-distended, normal bowel sounds Extremities: no cyanosis, no clubbing, no edema Skin: normal turgor, no lesions, no rashes Neurological: cranial nerve grossly intact, normal sensation to touch, no weakness Musculoskeletal: normal tone, normal strength, no muscle wasting Psychiatric: normal affect, normal behavior, A&O x 3, oriented to person Hosp A/P - Plan CT chest: multifocal pneumonia. No PE. Small pericardial effusion Chest X ray 06/06: bilateral pneumonia This is a 60 year old male patient with past medical history of Acute hypoxic respiratory failure secondary to COVID pneumonia -chest X ray 06/06 showed bilateral pneumonia. He is still on high flow nasal cannula. Attempt to wean oxygen to 92%. He received IV ceftriaxone from 05/29 to 06/06 and azithromycin 05/30 to 06/04 and remdesivir for five days - continue therapeutic lovenox - continue steroids 50 mg q6 hours - continue IV zosyn day 2. Patient has been started on BIPAP. Will trial intermittent break on high flow nasal cannula Hypertension - continue lisinopril Hyperlipidemia - continue atorvastatin Anemia - Hb 13.1, stable DVT prophylaxis: continue lovenox Code status: DNI
[2020-06-10] MEDS: Atorvastatin Calcium 10 MG TAB PO SCH (20:25)
[2020-06-11] MEDS: Piperacillin/Tazobactam 3.375 GM in Sodium Chloride 0.9% 100 ML IVPB SCH ×4 (00:35→17:30)
[2020-06-11] MEDS: Albuterol 200 PUFF (6.7GM INHALER) INH SCH ×4 (02:22→20:37)
[2020-06-11] MEDS: Hydrocortisone Sod Succ/PF 100 mg/2 ml Vial IVP SCH ×4 (03:16→20:38)
[2020-06-11 03:58] LABS: #Lymphocytes 0.8 thou/uL (1.20-3.40); #Monocytes 0.1 thou/uL (0.11-0.59); #Neutrophils 5.4 thou/uL (1.40-6.50); %Basophils 0.3 % (0.0-1.0); %Eosinophils 0.5 % (0.0-10.0); %Lymphocytes 12.1 % (21.0-51.0); %Monocytes 1.4 % (0.0-10.0); %Neutrophils 85.7 % (42.0-75.0); Hemoglobin 13.5 g/dL (14.0-18.0); Mean Corpuscular HGB CONC 32.7 g/dL (32.0-36.0); Mean Corpuscular Hemoglobin 30.9 pg (27.0-31.0); Mean Corpuscular Volume 94.4 fL (78.0-98.0); Mean Platelet Volume 6.2 fL (7.4-10.4); Platelet Count 471 thou/uL (130-400); RBC Distribution Width 13.3 % (11.5-14.5); Red Blood Cell (RBC) Count 4.36 mill/uL (4.70-6.10); White Blood Cell (WBC) Count 6.3 thou/uL (4.8-10.8)
[2020-06-11 04:06] LABS: Anion Gap 14 mmol/L (10-20); BUN (Urea Nitrogen) 19 mg/dL (8.4-25.7); Calc. Creatinine Clearance 157 mL/min (70-130); Calcium 8.6 mg/dL (7.8-10.44); Carbon Dioxide 26 mmol/L (22-29); Chloride 103 mmol/L (98-107); Estimated GFR-MDRD 72; Glucose 177 mg/dL (70-105); Potassium 3.9 mmol/L (3.5-5.1); Sodium 139 mmol/L (136-145)
[2020-06-11] MEDS: glipiZIDE 5 MG TAB PO SCH (08:38)
[2020-06-11] MEDS: Enoxaparin Sodium 40 MG/0.4 ML SYRINGE SC SCH ×2 (08:38→20:37)
[2020-06-11] MEDS: Benzonatate 100 MG CAP PO SCH ×3 (08:38→20:37)
[2020-06-11] MEDS: Famotidine 20 MG TAB PO SCH ×2 (08:38→20:37)
[2020-06-11] MEDS: Lisinopril 10 MG TAB PO SCH (08:39)
[2020-06-11] MEDS: guaiFENesin ER 600 MG TAB PO SCH ×2 (08:39→20:37)
[2020-06-11] MEDS: Sodium Chloride 0.65% Nasal 44 ML BOT EA NARE SCH ×2 (08:40→20:38)
[2020-06-11] MEDS: Mometasone 200 MCG/Formoterol 5 MCG 120 PUFF INHALER INH SCH ×2 (08:41→20:38)
[2020-06-11 08:42] VITALS: BP 120/74
--- NOTE | 2020-06-11 12:54 | PDOC.HOSPP ---
- Subjective Encounter Date: 06/11/20 Encounter Time: 12:48 Subjective: F/u: COVID pneumonia The patient is wearing BIPAP for most of the day. He is sleeping well with it per nursing. He desaturates to the high 70s with the high flow . THe patient is working with PT. He denies cough or SOB - Objective Vital Signs & Weight: Vital Signs (12 hours) Temp Pulse Resp BP Pulse Ox 06/11/20 08:39 120/74 89 L 06/11/20 08:08 68 13 96 06/11/20 08:00 97.6 F 06/11/20 07:23 97 06/11/20 04:00 98.3 F 06/11/20 02:06 81 23 H 93 L Weight Admit Weight 321 lb 9.6 oz Weight 321 lb 9.6 oz Most Recent Monitor Data Heart Rate from ECG 80 NIBP 137/86 NIBP BP-Mean 103 Respiration from ECG 22 SpO2 94 I&O: 06/10/20 06/11/20 06/12/20 06:59 06:59 06:59 Intake Total 1200 1321 Output Total 650 Balance 1200 671 Result Diagrams: 06/11/20 03:19 06/11/20 03:19 Additional Labs: Accuchecks 06/10/20 06/10/20 20:33 16:55 POC Glucose 155 H 160 H Hospitalist ROS - Review of Systems Constitutional: denies: fever, chills - Medication Medications: Active Medications Generic Name Dose Route Start Last Admin Trade Name Freq PRN Reason Stop Dose Admin Acetaminophen 650 mg 05/29/20 19:30 06/09/20 17:59 Acetaminophen 325 Mg Tab PO 650 mg Q4H PRN Administration Headache/Fever/Mild Pain (1-3) Albuterol Sulfate 2 puff 06/05/20 19:00 06/11/20 12:31 Albuterol 200 Puff (6.7gm Inhaler) INH 2 puff [id number] CON[facility] Administration Atorvastatin Calcium 10 mg 05/29/20 21:00 06/10/20 20:25 Atorvastatin Calcium 10 Mg Tab PO 10 mg HS CONCHA Administration Benzonatate 100 mg 06/05/20 15:00 06/11/20 08:38 Benzonatate 100 Mg Cap PO 100 mg TID CONCHA Administration Enoxaparin Sodium 40 mg 06/01/20 21:00 06/11/20 08:38 Enoxaparin Sodium 40 Mg/0.4 Ml Syringe SC 40 mg 0900,2100 CON[facility] Administration Famotidine 20 mg 06/07/20 21:00 06/11/20 08:38 Famotidine 20 Mg Tab PO 20 mg BID CONCHA Administration Glipizide 5 mg 05/31/20 07:30 06/11/20 08:38 Glipizide 5 Mg Tab PO 5 mg DAILY-AC CON[facility] Administration Guaifenesin 600 mg 06/01/20 21:00 06/11/20 08:39 Guaifenesin Er 600 Mg Tab PO 600 mg Q12HR CON[facility] Administration Guaifenesin/Codeine Phosphate 10 ml 06/04/20 07:23 06/07/20 11:36 Guaifenesin/Codeine Phosphate 200 Mg/20 Mg 10 Ml Ud Cup PO 10 ml Q6H PRN Administration Cough Hydrocortisone Sodium Succinate 50 mg 06/06/20 21:00 06/11/20 08:39 Hydrocortisone Sod Succ/Pf 100 Mg/2 Ml Vial IVP 50 mg 0300,0900,1500,2100 CON[facility] Administration Piperacillin Sod/Tazobactam 100 mls @ 200 mls/hr 06/09/20 18:00 06/11/20 12:30 Sod 3.375 gm/ Sodium Chloride IVPB 100 mls Q6HR CON[facility] Administration Insulin Human Lispro 0 units 05/29/20 19:30 06/09/20 06:28 Humalog 300 Units/3 Ml Vial SC 2 unit .MILD SLIDING SCALE PRN Administration Mild Correctional Scale Insulin Human Lispro 0 units 06/02/20 21:09 06/08/20 20:48 Humalog 300 Units/3 Ml Vial SC 3 unit .BEDTIME SLIDING SC PRN Administration Bedtime Correctional Scale Lisinopril 10 mg 05/30/20 09:00 06/11/20 08:39 Lisinopril 10 Mg Tab PO 10 mg DAILY CON[facility] Administration Mometasone Furoate/Formoterol Fumar 2 puff 06/04/20 21:00 06/11/20 08:41 Mometasone 200 Mcg/Formoterol 5 Mcg 120 Puff Inhaler INH 2 puff BID CON[facility] Administration Sodium Chloride 10 ml 05/30/20 09:00 06/11/20 08:41 Flush - Normal Saline 10 Ml Syringe IVF 10 ml Q12HR CON[facility] Administration Sodium Chloride 0 ml 06/03/20 15:15 06/11/20 08:40 Sodium Chloride 0.65% Nasal 44 Ml Bot EA NARE 2 spr BID CON[facility] Administration Zinc Sulfate 220 mg 06/01/20 21:00 06/10/20 20:25 Zinc Sulfate 220 Mg Cap PO 220 mg HS CONCHA Administration - Exam General Appearance: NAD, awake alert General - other findings: obese Eye: PERRL, anicteric sclera ENT: normocephalic atraumatic, no oropharyngeal lesions Heart: RRR, no murmur, no gallops, no rubs Respiratory - other findings: diminished breath sounds bilaterally Gastrointestinal: soft, non-tender, non-distended, normal bowel sounds Extremities: no cyanosis, no clubbing, no edema Skin: normal turgor, no lesions, no rashes Neurological: cranial nerve grossly intact, normal sensation to touch, no focal deficits, no new deficit Hosp A/P - Plan CT chest: multifocal pneumonia. No PE. Small pericardial effusion Chest X ray 06/06: bilateral pneumonia This is a 60 year old male patient with past medical history of hypertension who presented with pneumonia Acute hypoxic respiratory failure secondary to COVID pneumonia -chest X ray 06/06 showed bilateral pneumonia. He is still on high flow nasal cannula. Attempt to wean oxygen to 92%. He received IV ceftriaxone from 05/29 to 06/06 and azithromycin 05/30 to 06/04 and remdesivir for five days - continue therapeutic lovenox - continue steroids 50 mg q6 hours - continue IV zosyn day 3. Continue BIPAP with some breaks for eating Hypertension - continue lisinopril Hyperlipidemia - continue atorvastatin Anemia - Hb 13.1, stable DVT prophylaxis: continue lovenox Code status: DNI
[2020-06-11] MEDS: HumaLOG 300 UNITS/3 ML VIAL SC PRN ×2 (17:31→21:50)
[2020-06-11] MEDS: Zinc Sulfate 220 MG CAP PO SCH (20:37)
[2020-06-11] MEDS: Atorvastatin Calcium 10 MG TAB PO SCH (20:38)
[2020-06-12] MEDS: Albuterol 200 PUFF (6.7GM INHALER) INH SCH ×4 (01:10→18:56)
[2020-06-12] MEDS: Piperacillin/Tazobactam 3.375 GM in Sodium Chloride 0.9% 100 ML IVPB SCH ×5 (01:10→23:23)
[2020-06-12] MEDS: guaiFENesin/Codeine Phosphate 200 mg/20 mg 10 ml UD Cup PO PRN ×2 (02:48→23:23)
[2020-06-12] MEDS: Hydrocortisone Sod Succ/PF 100 mg/2 ml Vial IVP SCH ×4 (02:48→20:51)
[2020-06-12 03:34] LABS: #Lymphocytes 0.5 thou/uL (1.20-3.40); #Monocytes 0.1 thou/uL (0.11-0.59); #Neutrophils 4.9 thou/uL (1.40-6.50); %Basophils 0.3 % (0.0-1.0); %Eosinophils 0.2 % (0.0-10.0); %Lymphocytes 9.7 % (21.0-51.0); %Monocytes 1.4 % (0.0-10.0); %Neutrophils 88.4 % (42.0-75.0); Hemoglobin 12.8 g/dL (14.0-18.0); Mean Corpuscular HGB CONC 33.7 g/dL (32.0-36.0); Mean Corpuscular Volume 92.1 fL (78.0-98.0); Platelet Count 438 thou/uL (130-400); RBC Distribution Width 12.9 % (11.5-14.5); Red Blood Cell (RBC) Count 4.11 mill/uL (4.70-6.10); White Blood Cell (WBC) Count 5.6 thou/uL (4.8-10.8)
[2020-06-12 03:56] LABS: Anion Gap 12 mmol/L (10-20); BUN (Urea Nitrogen) 20 mg/dL (8.4-25.7); Calc. Creatinine Clearance 157 mL/min (70-130); Calcium 8.4 mg/dL (7.8-10.44); Carbon Dioxide 26 mmol/L (22-29); Chloride 103 mmol/L (98-107); Estimated GFR-MDRD 72; Glucose 227 mg/dL (70-105); Potassium 3.3 mmol/L (3.5-5.1); Sodium 138 mmol/L (136-145)
[2020-06-12] MEDS: HumaLOG 300 UNITS/3 ML VIAL SC PRN ×4 (06:06→21:03)
[2020-06-12] MEDS ORDERED: Potassium Chloride 20 MEQ TAB PO SCH (07:30)
[2020-06-12] MEDS: glipiZIDE 5 MG TAB PO SCH (09:14)
[2020-06-12] MEDS: Benzonatate 100 MG CAP PO SCH ×3 (09:14→20:52)
[2020-06-12] MEDS: Famotidine 20 MG TAB PO SCH ×2 (09:14→20:48)
[2020-06-12] MEDS: Enoxaparin Sodium 40 MG/0.4 ML SYRINGE SC SCH ×2 (09:15→20:47)
[2020-06-12] MEDS: Lisinopril 10 MG TAB PO SCH (09:15)
[2020-06-12] MEDS: guaiFENesin ER 600 MG TAB PO SCH ×2 (09:15→20:48)
[2020-06-12] MEDS: Mometasone 200 MCG/Formoterol 5 MCG 120 PUFF INHALER INH SCH ×2 (09:16→21:00)
[2020-06-12] MEDS: Sodium Chloride 0.65% Nasal 44 ML BOT EA NARE SCH ×2 (09:44→21:00)
[2020-06-12] MEDS ORDERED: Benzonatate 100 MG CAP PO SCH (10:00)
--- NOTE | 2020-06-12 12:03 | PDOC.HOSPP ---
- Subjective Encounter Date: 06/12/20 Encounter Time: 10:00 Subjective: F/u: COVID The patient was on high flow oxygen eating when I saw him. HIs saturations were 89%. He states he wore the BIPAP at night and it does not bother him. He had multiple coughing fits today. He states he has had a chronic cough for years. He wants to go home - Objective Vital Signs & Weight: Vital Signs (12 hours) Temp Pulse Resp BP Pulse Ox 06/12/20 09:15 120/74 06/12/20 07:24 68 17 95 06/12/20 04:00 98.3 F 06/12/20 02:29 78 21 H 90 L Weight Admit Weight 321 lb 9.6 oz Weight 321 lb 9.6 oz Most Recent Monitor Data Heart Rate from ECG 79 NIBP 132/62 NIBP BP-Mean 85 Respiration from ECG 10 SpO2 90 I&O: 06/11/20 06/12/20 06/13/20 06:59 06:59 06:59 Intake Total 1321 1780 Output Total 650 1400 Balance 671 380 Result Diagrams: 06/12/20 03:15 06/12/20 03:15 Additional Labs: Accuchecks 06/12/20 06/11/20 06/11/20 06:04 20:51 16:37 POC Glucose 191 H 244 H 165 H 06/11/20 12:56 POC Glucose 176 H Hospitalist ROS - Review of Systems Constitutional: denies: fever, chills - Medication Medications: Active Medications Generic Name Dose Route Start Last Admin Trade Name Freq PRN Reason Stop Dose Admin Acetaminophen 650 mg 05/29/20 19:30 06/09/20 17:59 Acetaminophen 325 Mg Tab PO 650 mg Q4H PRN Administration Headache/Fever/Mild Pain (1-3) Albuterol Sulfate 2 puff 06/05/20 19:00 06/12/20 09:15 Albuterol 200 Puff (6.7gm Inhaler) INH Not Given [id number] [facility] Atorvastatin Calcium 10 mg 05/29/20 21:00 06/11/20 20:38 Atorvastatin Calcium 10 Mg Tab PO 10 mg HS CON[facility] Administration Enoxaparin Sodium 40 mg 06/01/20 21:00 06/12/20 09:15 Enoxaparin Sodium 40 Mg/0.4 Ml Syringe SC 40 mg 0900,2100 [facility] Administration Famotidine 20 mg 06/07/20 21:00 06/12/20 09:14 Famotidine 20 Mg Tab PO 20 mg BID [facility] Administration Glipizide 5 mg 05/31/20 07:30 06/12/20 09:14 Glipizide 5 Mg Tab PO 5 mg DAILY-AC [facility] Administration Guaifenesin 600 mg 06/01/20 21:00 06/12/20 09:15 Guaifenesin Er 600 Mg Tab PO 600 mg Q12HR [facility] Administration Guaifenesin/Codeine Phosphate 10 ml 06/04/20 07:23 06/12/20 02:48 Guaifenesin/Codeine Phosphate 200 Mg/20 Mg 10 Ml Ud Cup PO 10 ml Q6H PRN Administration Cough Hydrocortisone Sodium Succinate 50 mg 06/06/20 21:00 06/12/20 09:15 Hydrocortisone Sod Succ/Pf 100 Mg/2 Ml Vial IVP 50 mg 0300,0900,1500,2100 [facility] Administration Piperacillin Sod/Tazobactam 100 mls @ 200 mls/hr 06/09/20 18:00 06/12/20 06:01 Sod 3.375 gm/ Sodium Chloride IVPB 100 mls Q6HR [facility] Administration Insulin Human Lispro 0 units 05/29/20 19:30 06/12/20 06:06 Humalog 300 Units/3 Ml Vial SC 2 unit .MILD SLIDING SCALE PRN Administration Mild Correctional Scale Insulin Human Lispro 0 units 06/02/20 21:09 06/11/20 21:50 Humalog 300 Units/3 Ml Vial SC 2 unit .BEDTIME SLIDING SC PRN Administration Bedtime Correctional Scale Lisinopril 10 mg 05/30/20 09:00 06/12/20 09:15 Lisinopril 10 Mg Tab PO 10 mg DAILY CON[facility] Administration Mometasone Furoate/Formoterol Fumar 2 puff 06/04/20 21:00 06/12/20 09:16 Mometasone 200 Mcg/Formoterol 5 Mcg 120 Puff Inhaler INH Not Given BID [facility] Sodium Chloride 10 ml 05/30/20 09:00 06/12/20 09:16 Flush - Normal Saline 10 Ml Syringe IVF 10 ml Q12HR [facility] Administration Sodium Chloride 0 ml 06/03/20 15:15 06/12/20 09:44 Sodium Chloride 0.65% Nasal 44 Ml Bot EA NARE 2 spr BID CON[facility] Administration Zinc Sulfate 220 mg 06/01/20 21:00 06/11/20 20:37 Zinc Sulfate 220 Mg Cap PO 220 mg HS CON[facility] Administration - Exam General Appearance: NAD, awake alert Eye: PERRL, anicteric sclera ENT: normocephalic atraumatic, no oropharyngeal lesions Neck: no JVD Heart: RRR, no murmur, no gallops, no rubs Respiratory: CTAB, no wheezes, no rales, no ronchi Gastrointestinal: soft, non-tender, non-distended, normal bowel sounds Extremities: no cyanosis, no clubbing, no edema Hosp A/P - Plan CT chest: multifocal pneumonia. No PE. Small pericardial effusion Chest X ray 06/06: bilateral pneumonia This is a 60 year old male patient with past medical history of hypertension who presented with pneumonia Acute hypoxic respiratory failure secondary to COVID pneumonia -chest X ray 06/06 showed bilateral pneumonia. He is still on high flow nasal cannula. Attempt to wean oxygen to 92%. He received IV ceftriaxone from 05/29 to 06/06 and azithromycin 05/30 to 06/04 and remdesivir for five days - continue therapeutic lovenox - continue steroids 50 mg q6 hours - continue IV zosyn day 4. Continue BIPAP with some breaks for eating Hypokalemia - potassium 3.3, replaced with oral potassium today Hypertension - continue lisinopril Hyperlipidemia - continue atorvastatin Anemia - Hb 12.8, stable DVT prophylaxis: continue lovenox Code status: DNI
[2020-06-12] MEDS: Pantoprazole 40 MG GRANULES PACKET PO SCH (20:48)
[2020-06-12] MEDS: Atorvastatin Calcium 10 MG TAB PO SCH (20:48)
[2020-06-12] MEDS: Zinc Sulfate 220 MG CAP PO SCH (20:56)
[2020-06-13] MEDS: Albuterol 200 PUFF (6.7GM INHALER) INH SCH ×4 (01:00→20:18)
[2020-06-13] MEDS: guaiFENesin/Codeine Phosphate 200 mg/20 mg 10 ml UD Cup PO PRN ×2 (01:01→10:29)
[2020-06-13] MEDS: Hydrocortisone Sod Succ/PF 100 mg/2 ml Vial IVP SCH ×4 (02:55→20:17)
[2020-06-13 03:51] LABS: Potassium 3.4 mmol/L (3.5-5.1)
[2020-06-13] MEDS: Piperacillin/Tazobactam 3.375 GM in Sodium Chloride 0.9% 100 ML IVPB SCH ×3 (05:21→20:13)
[2020-06-13] MEDS: HumaLOG 300 UNITS/3 ML VIAL SC PRN (05:22)
[2020-06-13] MEDS: glipiZIDE 5 MG TAB PO SCH (08:08)
[2020-06-13] MEDS: Benzonatate 100 MG CAP PO SCH ×3 (08:08→20:58)
[2020-06-13] MEDS: Sodium Chloride 0.65% Nasal 44 ML BOT EA NARE SCH ×2 (08:09→20:59)
[2020-06-13] MEDS: guaiFENesin ER 600 MG TAB PO SCH ×2 (08:09→20:59)
[2020-06-13] MEDS: Lisinopril 10 MG TAB PO SCH (08:09)
[2020-06-13] MEDS: Pantoprazole 40 MG GRANULES PACKET PO SCH ×2 (08:09→20:59)
[2020-06-13] MEDS: Mometasone 200 MCG/Formoterol 5 MCG 120 PUFF INHALER INH SCH ×2 (08:09→20:59)
[2020-06-13] MEDS: Famotidine 20 MG TAB PO SCH ×2 (08:09→20:58)
[2020-06-13] MEDS: Enoxaparin Sodium 40 MG/0.4 ML SYRINGE SC SCH ×2 (10:28→20:41)
[2020-06-13] MEDS: Lorazepam 2 MG/ML VIAL SLOW IVP PRN ×2 (11:59→20:15)
--- NOTE | 2020-06-13 13:19 | PRG ---
DATE OF SERVICE: 06/13/2020 SUBJECTIVE: Mr. Gant continues to struggle from a COVID perspective. He is now on BiPAP with supplemental oxygen at 100%. He has moderate work of breathing. He is able to sit up on the side of the bed and tried to seek appropriate position. He has been very adamant about his do not intubate status. PHYSICAL EXAMINATION: VITAL SIGNS: Blood pressure 146/89, heart rate is 80, oxygen saturation 85% to 91% on BiPAP as above. GENERAL: He is noted to have moderate work of breathing even on BiPAP. He is obese, somewhat restless. HEENT: Shows no JVD. He has no oropharyngeal Charlene. LUNGS: Bilateral rales. There is no wheezing. HEART: Regular rate and rhythm. ABDOMEN: Obese. EXTREMITIES: He has 1+ edema. LABORATORY DATA: None today. IMPRESSION: COVID pneumonia. PLAN: We will continue with current therapies. The patient has been very consistent and adamant that he does not wish to be intubated. This has been relayed to his family, much to their dismay. We will otherwise continue supportive therapies. Critical care 31 minutes. Job ID: [id number]
--- NOTE | 2020-06-13 15:05 | PDOC.HOSPP ---
- Subjective Encounter Date: 06/13/20 Encounter Time: 14:30 Subjective: f/u for COVID-19 PNA on BiPAP NIMV with FIO2 100%. Nursing reports pt combative and pulling off mask rapidly desaturating. Hospital day # 15. - Objective Vital Signs & Weight: Vital Signs (12 hours) Temp Pulse Resp BP Pulse Ox 06/13/20 08:09 120/74 06/13/20 07:35 82 31 H 06/13/20 05:00 16 91 L 06/13/20 04:00 98.3 F Weight Admit Weight 321 lb 9.6 oz Weight 321 lb 9.6 oz Most Recent Monitor Data Heart Rate from ECG 93 NIBP 146/89 NIBP BP-Mean 108 Respiration from ECG 34 SpO2 89 I&O: 06/12/20 06/13/20 06/14/20 06:59 06:59 06:59 Intake Total 1780 731.6 Output Total 1400 1050 Balance 380 -318.4 Result Diagrams: 06/12/20 03:15 06/13/20 03:09 Additional Labs: Accuchecks 06/13/20 06/13/20 06/12/20 10:57 05:27 21:03 POC Glucose 163 H 172 H 235 H 06/12/20 16:24 POC Glucose 194 H Microbiology 05/29/20 20:04 Venous blood - Right Arm Blood Culture - Final NO GROWTH IN 5 DAYS 05/29/20 20:04 Venous blood - Left Arm Blood Culture - Final NO GROWTH IN 5 DAYS Laboratory Tests 05/30/20 05/30/20 08:05 11:15 SARS-CoV-2 (PCR) DETECTED A* SARS-CoV-2 IgG Ab Non-Reactive SARS-CoV-2 IgG Ab Index 0.02 EKG Reviewed by me: Yes (Tele - SR) Hospitalist ROS - Medication Medications: Active Medications Generic Name Dose Route Start Last Admin Trade Name Freq PRN Reason Stop Dose Admin Acetaminophen 650 mg 05/29/20 19:30 06/09/20 17:59 Acetaminophen 325 Mg Tab PO 650 mg Q4H PRN Administration Headache/Fever/Mild Pain (1-3) Albuterol Sulfate 2 puff 06/05/20 19:00 06/13/20 14:40 Albuterol 200 Puff (6.7gm Inhaler) INH Not Given [id number] [facility] Atorvastatin Calcium 10 mg 05/29/20 21:00 06/12/20 20:48 Atorvastatin Calcium 10 Mg Tab PO 10 mg HS CON[facility] Administration Benzonatate 200 mg 06/12/20 15:00 06/13/20 14:36 Benzonatate 100 Mg Cap PO Not Given TID CON[facility] Enoxaparin Sodium 40 mg 06/01/20 21:00 06/13/20 10:28 Enoxaparin Sodium 40 Mg/0.4 Ml Syringe SC 40 mg 0900,2100 CON[facility] Administration Famotidine 20 mg 06/07/20 21:00 06/13/20 08:09 Famotidine 20 Mg Tab PO Not Given BID CON[facility] Glipizide 5 mg 05/31/20 07:30 06/13/20 08:08 Glipizide 5 Mg Tab PO Not Given DAILY-AC [facility] Guaifenesin 600 mg 06/01/20 21:00 06/13/20 08:09 Guaifenesin Er 600 Mg Tab PO Not Given Q12HR [facility] Guaifenesin/Codeine Phosphate 10 ml 06/04/20 07:23 06/13/20 10:29 Guaifenesin/Codeine Phosphate 200 Mg/20 Mg 10 Ml Ud Cup PO 10 ml Q6H PRN Administration Cough Hydrocortisone Sodium Succinate 50 mg 06/06/20 21:00 06/13/20 14:40 Hydrocortisone Sod Succ/Pf 100 Mg/2 Ml Vial IVP 50 mg 0300,0900,1500,2100 CON[facility] Administration Piperacillin Sod/Tazobactam 100 mls @ 200 mls/hr 06/09/20 18:00 06/13/20 14:40 Sod 3.375 gm/ Sodium Chloride IVPB 100 mls Q6HR [facility] Administration Insulin Human Lispro 0 units 05/29/20 19:30 06/13/20 05:22 Humalog 300 Units/3 Ml Vial SC 2 unit .MILD SLIDING SCALE PRN Administration Mild Correctional Scale Insulin Human Lispro 0 units 06/02/20 21:09 06/12/20 21:03 Humalog 300 Units/3 Ml Vial SC 2 unit .BEDTIME SLIDING SC PRN Administration Bedtime Correctional Scale Lisinopril 10 mg 05/30/20 09:00 06/13/20 08:09 Lisinopril 10 Mg Tab PO Not Given DAILY [facility] Lorazepam 1 mg 06/13/20 11:25 06/13/20 11:59 Lorazepam 2 Mg/Ml Vial SLOW IVP 1 mg Q6H PRN Administration Anxiety Mometasone Furoate/Formoterol Fumar 2 puff 06/04/20 21:00 06/13/20 08:09 Mometasone 200 Mcg/Formoterol 5 Mcg 120 Puff Inhaler INH Not Given BID CON[facility] Pantoprazole Sodium 40 mg 06/12/20 21:00 06/13/20 08:09 Pantoprazole 40 Mg Granules Packet PO Not Given BID CON[facility] Sodium Chloride 10 ml 05/30/20 09:00 06/13/20 10:30 Flush - Normal Saline 10 Ml Syringe IVF 10 ml Q12HR CON[facility] Administration Sodium Chloride 0 ml 06/03/20 15:15 06/13/20 08:09 Sodium Chloride 0.65% Nasal 44 Ml Bot EA NARE Not Given BID CON[facility] Zinc Sulfate 220 mg 06/01/20 21:00 06/12/20 20:56 Zinc Sulfate 220 Mg Cap PO 220 mg HS CONCHA Administration - Exam General - other findings: lethargic, groggy, mumbles through BiPAP mask Eye: PERRL, anicteric sclera ENT: normocephalic atraumatic, no oropharyngeal lesions Neck: supple, symmetric, no JVD, no thyromegaly, no lymphadenopathy Heart: RRR, no gallops, no rubs, normal peripheral pulses Heart - other findings: S1, S2 Respiratory: no ronchi, tachypneic Respiratory - other findings: diminished in bases bilat Gastrointestinal: soft, non-tender, non-distended, normal bowel sounds, no palpable masses, no hepatomegaly Gastrointestinal - other findings: obese Extremities: no cyanosis, no clubbing, 1+ LE edema Skin: normal turgor, no lesions Neurological: cranial nerve grossly intact Musculoskeletal: normal tone, generalized weakness Psychiatric: oriented to person, flat affect, somnolent, lethargic Hosp A/P (1) Pneumonia due to COVID-19 virus Code(s): U07.1 - COVID-19; J12.89 - OTHER VIRAL PNEUMONIA Status: Acute Plan: Continue Zosyn/Hydrocortisone/Lovenox/Zinc/O2 supplementation with BiPAP NIMV, s/p convalescent plasma (2) Acute respiratory failure with hypoxia Code(s): J96.01 - ACUTE RESPIRATORY FAILURE WITH HYPOXIA Status: Acute Plan: BiPAP NIMV, titrate O2 to clinical effect (3) Diabetes mellitus type 2 in obese Code(s): E11.9 - TYPE 2 DIABETES MELLITUS WITHOUT COMPLICATIONS; E66.9 - OBESITY, UNSPECIFIED Status: Chronic (4) Hypertension Code(s): I10 - ESSENTIAL (PRIMARY) HYPERTENSION Status: Chronic Qualifiers: Hypertension type: essential hypertension Qualified Code(s): I10 - Essential (primary) hypertension Plan: Resume home BP regimen, serial monitoring (5) Obesity Code(s): E66.9 - OBESITY, UNSPECIFIED Status: Chronic Qualifiers: Obesity classification: adult class 3 (BMI >= 40) Body mass index: BMI 45 .0-49.9 - Plan continue antibiotics, PT/OT, school social worker, speech therapy, respiratory therapy Continue pulmonary support Continue Zosyn Continue Hydrocortisone/Lovenox Bronchodilator therapy Resp support with BiPAP NIMV Continue ISS
[2020-06-13] MEDS: Atorvastatin Calcium 10 MG TAB PO SCH (20:58)
[2020-06-13] MEDS: Zinc Sulfate 220 MG CAP PO SCH (21:00)
[2020-06-14] MEDS: Piperacillin/Tazobactam 3.375 GM in Sodium Chloride 0.9% 100 ML IVPB SCH ×5 (01:02→23:18)
[2020-06-14] MEDS: Albuterol 200 PUFF (6.7GM INHALER) INH SCH ×4 (01:02→17:33)
[2020-06-14] MEDS: Hydrocortisone Sod Succ/PF 100 mg/2 ml Vial IVP SCH ×4 (03:22→21:14)
[2020-06-14] MEDS ORDERED: Piperacillin/Tazobactam 3.375 GM VIAL ONE (05:30)
[2020-06-14] MEDS: Famotidine 20 MG TAB PO SCH ×2 (08:24→21:17)
[2020-06-14] MEDS: guaiFENesin ER 600 MG TAB PO SCH ×2 (08:24→21:17)
[2020-06-14] MEDS: glipiZIDE 5 MG TAB PO SCH (08:24)
[2020-06-14] MEDS: Benzonatate 100 MG CAP PO SCH ×3 (08:24→21:16)
[2020-06-14] MEDS: Lisinopril 10 MG TAB PO SCH (08:24)
[2020-06-14] MEDS: Pantoprazole 40 MG GRANULES PACKET PO SCH ×2 (08:25→21:18)
[2020-06-14] MEDS: Sodium Chloride 0.65% Nasal 44 ML BOT EA NARE SCH ×2 (08:25→21:18)
[2020-06-14] MEDS: Enoxaparin Sodium 40 MG/0.4 ML SYRINGE SC SCH ×2 (10:23→21:15)
[2020-06-14] MEDS: Mometasone 200 MCG/Formoterol 5 MCG 120 PUFF INHALER INH SCH ×2 (10:24→21:18)
--- NOTE | 2020-06-14 12:09 | PRG ---
DATE OF SERVICE: 06/14/2020 SUBJECTIVE: Mr. Gant continues to be on BiPAP with BiPAP at night and high-flow during the day at 100%. Even at this, we are struggling to maintain adequate oxygen saturation. The patient has been very adamant that he does not wish ventilatory support. It has been reported to me that the family does not agree with that decision, and they have expressed an interest in overriding his personal request at such time if he becomes incompetent. PHYSICAL EXAMINATION: VITAL SIGNS: Blood pressure is 137/88, heart rate 80, respiratory rate 25, saturation 90% on FiO2 as above. LUNGS: Show bilateral rhonchi. He is in moderate distress. HEART: Regular rate and rhythm. ABDOMEN: Obese, soft. He has no organomegaly. EXTREMITIES: He has 1+ edema. LABORATORY DATA: None today. IMPRESSION: COVID pneumonia, not responding well and on maximal oxygen supplementation. He has been very adamant in his refusal of intubation and support. PLAN: We will continue current therapies. The patient has expressed quite adamantly that he does not wish intubation and support. I personally would not accept the family's request to override his personal perspective. This is certainly an issue that is going to come up, but this has been his repeated statements in a period of time when he was coherent and appropriate, and I do not feel it should be discarded. Job ID: [id number]
--- NOTE | 2020-06-14 16:21 | PDOC.HOSPP ---
- Subjective Encounter Date: 06/14/20 Encounter Time: 16:15 Subjective: f/u COVID PNA on current BiPAP NIMV with FIO2 100%. - Objective Vital Signs & Weight: Vital Signs (12 hours) Pulse Resp BP Pulse Ox 06/14/20 10:45 82 25 H 89 L 06/14/20 08:24 120/74 06/14/20 07:31 88 L Weight Admit Weight 321 lb 9.6 oz Weight 321 lb 9.6 oz Most Recent Monitor Data Heart Rate from ECG 82 NIBP 150/83 NIBP BP-Mean 105 Respiration from ECG 24 SpO2 84 I&O: 06/13/20 06/14/20 06/15/20 06:59 06:59 06:59 Intake Total 731.6 800 Output Total 1050 950 Balance -318.4 -150 Result Diagrams: 06/12/20 03:15 06/13/20 03:09 Additional Labs: Accuchecks 06/14/20 06/13/20 06:15 20:44 POC Glucose 182 H 168 H Microbiology 05/29/20 20:04 Venous blood - Right Arm Blood Culture - Final NO GROWTH IN 5 DAYS 05/29/20 20:04 Venous blood - Left Arm Blood Culture - Final NO GROWTH IN 5 DAYS Laboratory Tests 05/30/20 05/30/20 08:05 11:15 SARS-CoV-2 (PCR) DETECTED A* SARS-CoV-2 IgG Ab Non-Reactive SARS-CoV-2 IgG Ab Index 0.02 EKG Reviewed by me: Yes (Tele - SR) Hospitalist ROS - Medication Medications: Active Medications Generic Name Dose Route Start Last Admin Trade Name Freq PRN Reason Stop Dose Admin Acetaminophen 650 mg 05/29/20 19:30 06/09/20 17:59 Acetaminophen 325 Mg Tab PO 650 mg Q4H PRN Administration Headache/Fever/Mild Pain (1-3) Albuterol Sulfate 2 puff 06/05/20 19:00 06/14/20 12:40 Albuterol 200 Puff (6.7gm Inhaler) INH Not Given [id number] [facility] Atorvastatin Calcium 10 mg 05/29/20 21:00 06/13/20 20:58 Atorvastatin Calcium 10 Mg Tab PO Not Given HS CONCHA Benzonatate 200 mg 06/12/20 15:00 06/14/20 15:38 Benzonatate 100 Mg Cap PO Not Given TID CONCHA Enoxaparin Sodium 40 mg 06/01/20 21:00 06/14/20 10:23 Enoxaparin Sodium 40 Mg/0.4 Ml Syringe SC 40 mg 0900,2100 CONCHA Administration Famotidine 20 mg 06/07/20 21:00 06/14/20 08:24 Famotidine 20 Mg Tab PO Not Given BID CONCHA Glipizide 5 mg 05/31/20 07:30 06/14/20 08:24 Glipizide 5 Mg Tab PO Not Given DAILY-AC [facility] Guaifenesin 600 mg 06/01/20 21:00 06/14/20 08:24 Guaifenesin Er 600 Mg Tab PO Not Given Q12HR [facility] Guaifenesin/Codeine Phosphate 10 ml 06/04/20 07:23 06/13/20 10:29 Guaifenesin/Codeine Phosphate 200 Mg/20 Mg 10 Ml Ud Cup PO 10 ml Q6H PRN Administration Cough Hydrocortisone Sodium Succinate 50 mg 06/06/20 21:00 06/14/20 10:23 Hydrocortisone Sod Succ/Pf 100 Mg/2 Ml Vial IVP 50 mg 0300,0900,1500,2100 CON[facility] Administration Piperacillin Sod/Tazobactam 100 mls @ 200 mls/hr 06/09/20 18:00 06/14/20 10:24 Sod 3.375 gm/ Sodium Chloride IVPB 100 mls Q6HR [facility] Administration Insulin Human Lispro 0 units 05/29/20 19:30 06/13/20 05:22 Humalog 300 Units/3 Ml Vial SC 2 unit .MILD SLIDING SCALE PRN Administration Mild Correctional Scale Insulin Human Lispro 0 units 06/02/20 21:09 06/12/20 21:03 Humalog 300 Units/3 Ml Vial SC 2 unit .BEDTIME SLIDING SC PRN Administration Bedtime Correctional Scale Lisinopril 10 mg 05/30/20 09:00 06/14/20 08:24 Lisinopril 10 Mg Tab PO Not Given DAILY [facility] Lorazepam 1 mg 06/13/20 11:25 06/13/20 20:15 Lorazepam 2 Mg/Ml Vial SLOW IVP 1 mg Q6H PRN Administration Anxiety Mometasone Furoate/Formoterol Fumar 2 puff 06/04/20 21:00 06/14/20 10:24 Mometasone 200 Mcg/Formoterol 5 Mcg 120 Puff Inhaler INH Not Given BID [facility] Pantoprazole Sodium 40 mg 06/12/20 21:00 06/14/20 08:25 Pantoprazole 40 Mg Granules Packet PO Not Given BID [facility] Sodium Chloride 10 ml 05/30/20 09:00 06/14/20 10:24 Flush - Normal Saline 10 Ml Syringe IVF 10 ml Q12HR [facility] Administration Sodium Chloride 0 ml 06/03/20 15:15 06/14/20 08:25 Sodium Chloride 0.65% Nasal 44 Ml Bot EA NARE Not Given BID CON[facility] Zinc Sulfate 220 mg 06/01/20 21:00 06/13/20 21:00 Zinc Sulfate 220 Mg Cap PO Not Given HS CONCHA - Exam General - other findings: anxious, yelling out Eye: PERRL, anicteric sclera ENT: normocephalic atraumatic, no oropharyngeal lesions ENT - other findings: BiPAP facemask in place Neck: supple, symmetric, no JVD, no thyromegaly, no lymphadenopathy Heart: RRR, no gallops, no rubs, normal peripheral pulses Respiratory: rhonchi, tachypneic Respiratory - other findings: diminished in bases Gastrointestinal: soft, non-tender, non-distended, normal bowel sounds, no palpable masses Extremities: no cyanosis, no clubbing, no edema Skin: normal turgor Neurological: cranial nerve grossly intact, no new deficit Musculoskeletal: normal tone, generalized weakness Musculoskeletal - other findings: soft wrist restraints in place Psychiatric - other findings: anxious, agitated Hosp A/P (1) Pneumonia due to COVID-19 virus Code(s): U07.1 - COVID-19; J12.89 - OTHER VIRAL PNEUMONIA Status: Acute Plan: Continue Zosyn/Hydrocortisone/Lovenox (2) Acute respiratory failure with hypoxia Code(s): J96.01 - ACUTE RESPIRATORY FAILURE WITH HYPOXIA Status: Acute Plan: Continue BiPAP NIMV FIO2 100% (3) Diabetes mellitus type 2 in obese Code(s): E11.9 - TYPE 2 DIABETES MELLITUS WITHOUT COMPLICATIONS; E66.9 - OBESITY, UNSPECIFIED Status: Chronic (4) Hypertension Code(s): I10 - ESSENTIAL (PRIMARY) HYPERTENSION Status: Chronic Qualifiers: Hypertension type: essential hypertension Qualified Code(s): I10 - Essential (primary) hypertension (5) Obesity Code(s): E66.9 - OBESITY, UNSPECIFIED Status: Chronic Qualifiers: Obesity classification: adult class 3 (BMI >= 40) Body mass index: BMI 45.0-49.9 - Plan plan discussed w/ family, continue antibiotics, PT/OT, manager social work, respiratory therapy, DVT proph w/SCDs Continue pulmonary support Continue Zosyn Continue Hydrocortisone/Lovenox Bronchodilator therapy Resp support with BiPAP NIMV Continue ISS Updated family of current status, ok for 1 family member to sit with patient given severity of condition
[2020-06-14] MEDS: Lorazepam 2 MG/ML VIAL SLOW IVP PRN ×2 (16:24→21:15)
[2020-06-14] MEDS: Atorvastatin Calcium 10 MG TAB PO SCH (21:17)
[2020-06-14] MEDS: Zinc Sulfate 220 MG CAP PO SCH (21:19)
[2020-06-14] MEDS: Morphine 2 MG/ML VIAL SLOW IVP PRN (23:19)
[2020-06-15] MEDS: Albuterol 200 PUFF (6.7GM INHALER) INH SCH ×2 (02:27→08:05)
[2020-06-15] MEDS: Hydrocortisone Sod Succ/PF 100 mg/2 ml Vial IVP SCH ×2 (03:01→09:32)
[2020-06-15] MEDS: Morphine 2 MG/ML VIAL SLOW IVP PRN (03:02)
[2020-06-15 04:12] VITALS: TEMP 99.1
[2020-06-15] MEDS: Lorazepam 2 MG/ML VIAL SLOW IVP PRN ×2 (04:55→11:19)
[2020-06-15] MEDS ORDERED: Morphine 2 MG/ML VIAL SLOW IVP SCH (05:30)
[2020-06-15] MEDS: Morphine 4 MG/ML VIAL SLOW IVP PRN ×2 (07:39→12:04)
[2020-06-15] MEDS: Piperacillin/Tazobactam 3.375 GM in Sodium Chloride 0.9% 100 ML IVPB SCH (08:05)
[2020-06-15] MEDS: glipiZIDE 5 MG TAB PO SCH (08:06)
--- NOTE | 2020-06-15 08:16 | PRG ---
DATE OF SERVICE: 06/15/2020 SUBJECTIVE: Mr. Gant continues to actively deteriorate with falling oxygen saturation. He is restless and agitated. He is moaning, but not appropriate with regard to responses. We have been giving morphine although only every 4 hours and this is not yet effective. Family is here. I have reaffirmed with them that the patient expressly refused intubation. As such, CPR is of no benefit, as this is a primary respiratory failure. We will continue comfort measures and I anticipate the patient will today. Job ID: [id number]
--- NOTE | 2020-06-15 08:58 | PDOC.HOSPP ---
- Subjective Encounter Date: 06/15/20 Encounter Time: 08:45 Subjective: f/u for COVID PNA on BiPAP NIMV deteriorating last pm with increased agitation and worsening hypoxia. Received Morphine sulfate/Ativan with discussions with family regarding comfort measures and not pursuing intubation as expressed by the patient previously. - Objective Vital Signs & Weight: Vital Signs (12 hours) Temp Pulse Pulse Ox 06/15/20 04:00 99.1 F 06/15/20 03:00 110 H 92 L 06/14/20 23:39 97.9 F Weight Admit Weight 321 lb 9.6 oz Weight 321 lb 9.6 oz Most Recent Monitor Data Heart Rate from ECG 122 NIBP 101/73 NIBP BP-Mean 82 Respiration from ECG 21 SpO2 60 I&O: 06/14/20 06/15/20 06/16/20 06:59 06:59 06:59 Intake Total 800 20 Output Total 950 400 Balance -150 -380 Result Diagrams: 06/12/20 03:15 06/13/20 03:09 Additional Labs: Accuchecks 06/15/20 06/14/20 06:01 20:02 POC Glucose 246 H 165 H Microbiology 05/29/20 20:04 Venous blood - Right Arm Blood Culture - Final NO GROWTH IN 5 DAYS 05/29/20 20:04 Venous blood - Left Arm Blood Culture - Final NO GROWTH IN 5 DAYS Laboratory Tests 05/30/20 05/30/20 08:05 11:15 SARS-CoV-2 (PCR) DETECTED A* SARS-CoV-2 IgG Ab Non-Reactive SARS-CoV-2 IgG Ab Index 0.02 EKG Reviewed by me: Yes (Tele - Sinus tachycardia) Hospitalist ROS - Medication Medications: Active Medications Generic Name Dose Route Start Last Admin Trade Name Freq PRN Reason Stop Dose Admin Acetaminophen 650 mg 05/29/20 19:30 06/09/20 17:59 Acetaminophen 325 Mg Tab PO 650 mg Q4H PRN Administration Headache/Fever/Mild Pain (1-3) Albuterol Sulfate 2 puff 06/05/20 19:00 06/15/20 08:05 Albuterol 200 Puff (6.7gm Inhaler) INH Not Given [id number] [facility] Atorvastatin Calcium 10 mg 05/29/20 21:00 06/14/20 21:17 Atorvastatin Calcium 10 Mg Tab PO Not Given HS [facility] Benzonatate 200 mg 06/12/20 15:00 06/14/20 21:16 Benzonatate 100 Mg Cap PO Not Given TID [facility] Enoxaparin Sodium 40 mg 06/01/20 21:00 06/14/20 21:15 Enoxaparin Sodium 40 Mg/0.4 Ml Syringe SC 40 mg 0900,2100 [facility] Administration Famotidine 20 mg 06/07/20 21:00 06/14/20 21:17 Famotidine 20 Mg Tab PO Not Given BID [facility] Glipizide 5 mg 05/31/20 07:30 06/15/20 08:06 Glipizide 5 Mg Tab PO Not Given DAILY-AC [facility] Guaifenesin 600 mg 06/01/20 21:00 06/14/20 21:17 Guaifenesin Er 600 Mg Tab PO Not Given Q12HR [facility] Guaifenesin/Codeine Phosphate 10 ml 06/04/20 07:23 06/13/20 10:29 Guaifenesin/Codeine Phosphate 200 Mg/20 Mg 10 Ml Ud Cup PO 10 ml Q6H PRN Administration Cough Hydrocortisone Sodium Succinate 50 mg 06/06/20 21:00 06/15/20 03:01 Hydrocortisone Sod Succ/Pf 100 Mg/2 Ml Vial IVP 50 mg 0300,0900,1500,2100 [facility] Administration Piperacillin Sod/Tazobactam 100 mls @ 200 mls/hr 06/09/20 18:00 06/15/20 08:05 Sod 3.375 gm/ Sodium Chloride IVPB Not Given Q6HR [facility] Insulin Human Lispro 0 units 05/29/20 19:30 06/13/20 05:22 Humalog 300 Units/3 Ml Vial SC 2 unit .MILD SLIDING SCALE PRN Administration Mild Correctional Scale Insulin Human Lispro 0 units 06/02/20 21:09 06/12/20 21:03 Humalog 300 Units/3 Ml Vial SC 2 unit .BEDTIME SLIDING SC PRN Administration Bedtime Correctional Scale Lisinopril 10 mg 05/30/20 09:00 06/14/20 08:24 Lisinopril 10 Mg Tab PO Not Given DAILY [facility] Lorazepam 1 mg 06/13/20 11:25 06/15/20 04:55 Lorazepam 2 Mg/Ml Vial SLOW IVP 1 mg Q6H PRN Administration Anxiety Mometasone Furoate/Formoterol Fumar 2 puff 06/04/20 21:00 06/14/20 21:18 Mometasone 200 Mcg/Formoterol 5 Mcg 120 Puff Inhaler INH Not Given BID [facility] Morphine Sulfate 1 mg 06/14/20 18:50 06/15/20 03:02 Morphine 2 Mg/Ml Vial SLOW IVP 1 mg Q4H PRN Administration .ANXIETY Morphine Sulfate 4 mg 06/15/20 07:30 06/15/20 07:39 Morphine 4 Mg/Ml Vial SLOW IVP 4 mg Q1H PRN Administration Pain Pantoprazole Sodium 40 mg 06/12/20 21:00 06/14/20 21:18 Pantoprazole 40 Mg Granules Packet PO Not Given BID [facility] Sodium Chloride 10 ml 05/30/20 09:00 06/14/20 21:19 Flush - Normal Saline 10 Ml Syringe IVF 10 ml Q12HR [facility] Administration Sodium Chloride 0 ml 06/03/20 15:15 06/14/20 21:18 Sodium Chloride 0.65% Nasal 44 Ml Bot EA NARE Not Given BID [facility] Zinc Sulfate 220 mg 06/01/20 21:00 06/14/20 21:19 Zinc Sulfate 220 Mg Cap PO Not Given HS [facility] - Exam General Appearance: ill appearing General - other findings: somnolent, BiPAP mask in place Eye: PERRL, anicteric sclera ENT: normocephalic atraumatic, no oropharyngeal lesions Neck: supple, symmetric, no JVD, no thyromegaly, no lymphadenopathy Heart: no murmur, no gallops, no rubs, normal peripheral pulses Heart - other findings: S1, S2 with tachycardia Respiratory: tachypneic Respiratory - other findings: diminished bilat, scattered coarse sounds Gastrointestinal: soft, non-tender, non-distended, normal bowel sounds, no palpable masses Gastrointestinal - other findings: obese Extremities: no cyanosis, no clubbing, no edema Skin: normal turgor Musculoskeletal: generalized weakness Psychiatric: flat affect, somnolent, lethargic Hosp A/P (1) Pneumonia due to COVID-19 virus Code(s): U07.1 - COVID-19; J12.89 - OTHER VIRAL PNEUMONIA Status: Acute Plan: Continue Zosyn/Lovenox/Hydrocortisone/BiPAP NIMV, appears to be end-stage process and family wishing to pursue hospice options (2) Acute respiratory failure with hypoxia Code(s): J96.01 - ACUTE RESPIRATORY FAILURE WITH HYPOXIA Status: Acute Plan: Continues to clinically deteriorate, family pursuing hospice options (3) Diabetes mellitus type 2 in obese Code(s): E11.9 - TYPE 2 DIABETES MELLITUS WITHOUT COMPLICATIONS; E66.9 - OBESITY, UNSPECIFIED Status: Chronic (4) Hypertension Code(s): I10 - ESSENTIAL (PRIMARY) HYPERTENSION Status: Chronic Qualifiers: Hypertension type: essential hypertension Qualified Code(s): I10 - Essential (primary) hypertension (5) Obesity Code(s): E66.9 - OBESITY, UNSPECIFIED Status: Chronic Qualifiers: Obesity classification: adult class 3 (BMI >= 40) Body mass index: BMI 45.0-49.9 - Plan plan discussed w/ family, social insurance adviser, respiratory therapy Continue pulmonary support Continue Zosyn Continue Hydrocortisone/Lovenox Bronchodilator therapy Resp support with BiPAP NIMV Continue ISS Family understands pt is deteriorating and likely end-stage and did not want intubation and mech ventilation Hospice options currently being coordinated Code Status: DNAR
--- NOTE | 2020-06-15 08:58 | PDOC.PALCO ---
Palliative Care Consult - Consult Details Requesting Physician: Dr Serrato Reason for Consult: goals of care, family support, complex decision-making Family Members Present: and patient son - Pertinent HPI 59 year old male with known history of Diabetes and hypertension who was transferred from [facility] secondary to Covid 19. Weep prior to presentation he was in his usual state of health. Onset of cough, chills, nasal congestion and shortness of breath. Progression of shortness of breath was the factor that led to evaluation. Admitted for further management. Subsequent placement of Bipap with progression, patient had voiced he did not desire to be intubated, signing his own consent. Recent decline, Bipap with poor oxygenation. Family has agreed to DNAR, after discussion with hospitalist and Test Center Manager. Patient is now non responsive. - Social History Smoking Status: Never smoker Smoking: no tobacco exposure Alcohol Use: none Drug Use History: none Living Situation: - Medications MAR Reviewed: Yes - Allergies Allergies/Adverse Reactions: Allergies Allergy/AdvReac Type Severity Reaction Status Date / Time No Known Allergies Allergy Verified 05/29/20 23:40 - Subjective Bipap, labored respirations, non responsive. - ROS Non Response: due to mental status - Objective Vital Signs: Vital Signs - Most Recent Temp Pulse Resp BP Pulse Ox 99.1 F 110 H 25 H 120/74 92 L 06/15/20 04:00 06/15/20 03:00 06/14/20 10:45 06/14/20 08:24 06/15/20 03:00 - Physical Exam Constitutional: ill appearing, mild distress HEENT: moist MMs Respiratory: labored respirations, tachypnea Deviation from normal: Bilaterally adventicious Cardiovascular: RRR, diminished peripheral pulses Gastrointestinal: soft Deviation from normal: Obese Musculoskeletal: no clubbing Neurology: no focal deficits Skin: fragile Deviation from normal: Encephalopathic - Problem List (1) Acute respiratory failure with hypoxia Code(s): J96.01 - ACUTE RESPIRATORY FAILURE WITH HYPOXIA Current Visit: Yes Status: Acute (2) Pneumonia due to COVID-19 virus Code(s): U07.1 - COVID-19; J12.89 - OTHER VIRAL PNEUMONIA Current Visit: Yes Status: Acute (3) Diabetes mellitus type 2 in obese Code(s): E11.9 - TYPE 2 DIABETES MELLITUS WITHOUT COMPLICATIONS; E66.9 - OBESITY, UNSPECIFIED Current Visit: No Status: Chronic (4) Hypertension Code(s): I10 - ESSENTIAL (PRIMARY) HYPERTENSION Current Visit: No Status: Chronic Qualifiers: Hypertension type: essential hypertension Qualified Code(s): I10 - Essential (primary) hypertension (5) Obesity Code(s): E66.9 - OBESITY, UNSPECIFIED Current Visit: No Status: Chronic Qualifiers: Obesity classification: adult class 3 (BMI >= 40) Body mass index: BMI 45.0-49.9 - Plan/Recommendations Plan: Met with patient , son and spiritual care. Discussed patient wishes. had agreed to transition from DNI to DNAR. Son confirmed that his father would not desire to suffer. Discussed overlay of hospice to manage symptoms of terminal condition. and son in agreement. Emotional support and therapeutic listening. Dr Rojelio sparks, notified of family desire to transition to Hospice Spiritual care with Father José Miguel for additional support. [] minutes spent on this encounter with >50% of the time in counseling and coordination of care. Thank you for this very appropriate consult.
[2020-06-15] MEDS: Enoxaparin Sodium 40 MG/0.4 ML SYRINGE SC SCH (09:32)
[2020-06-15] MEDS: guaiFENesin ER 600 MG TAB PO SCH (09:32)
[2020-06-15] MEDS: Sodium Chloride 0.65% Nasal 44 ML BOT EA NARE SCH (09:32)
[2020-06-15] MEDS: Pantoprazole 40 MG GRANULES PACKET PO SCH (09:32)
[2020-06-15] MEDS: Mometasone 200 MCG/Formoterol 5 MCG 120 PUFF INHALER INH SCH (09:32)
[2020-06-15] MEDS: Lisinopril 10 MG TAB PO SCH (09:32)
[2020-06-15] MEDS: Benzonatate 100 MG CAP PO SCH (09:32)
[2020-06-15] MEDS: Famotidine 20 MG TAB PO SCH (09:32)
--- NOTE | 2020-06-15 12:23 | PRG ---
DATE OF SERVICE: 06/15/2020 SUBJECTIVE: Ammon Gant, day 17 in the hospital, Johnson positive pneumonia, respiratory failure, encephalopathic. OBJECTIVE: VITAL SIGNS: Blood pressure 120/74, pulse 119. He is on BiPAP. Sats are in the 80s. Respiratory rate 20. CHEST: No wheezing. No crackles. CARDIAC: Normal S1 and S2. No gallops. LABORATORY DATA: No lab was ordered today. IMPRESSION: Respiratory failure, johnson positive pneumonia, terminal supportive care with hospice. Job ID: [id number]
--- NOTE | 2020-06-15 23:48 | DIS ---
DATE OF ADMISSION: 05/29/2020 DATE OF DISCHARGE: 06/15/2020 DISCHARGE DIAGNOSES: 1. Pneumonia due to COVID-19, end-stage. 2. Acute hypoxic respiratory failure, progressive. 3. Diabetes mellitus type 2. 4. Hypertension. 5. Morbid obesity. CONSULTATIONS: 1. Dr. William Albarran with Infectious Disease Service. 2. Dr. Jacques with Pulmonology Critical Care Service. 3. Palliative Care Service. PERTINENT LABORATORY AND X-RAY FINDINGS: Ferritin ranged between 736-2515. CRP 5.57. BNP . D-dimer at 0.57. CBC showed a white blood cell count ranging between 5.0 to 10.6. COVID-19 PCR detected on 05/30/2020. Urine Legionella pneumophila antigen negative on 05/30/2020. Antibodies to COVID-19 not detected on 05/29/2020 and 05/30/2020. Streptococcal pneumonia urine antigen negative on 05/30/2020. Blood cultures x2 dated 05/29/2020, showed no growth at [address] angiogram of the chest dated 05/30/2020, showed no evidence for pulmonary embolus. Dense consolidation of the left lower lobe as well as multifocal patchy infiltrates concerning for pneumonia. Portable chest x-ray dated 06/03/2020, showed worsening bilateral opacities consistent with COVID pneumonia. HOSPITAL COURSE: The patient was initially admitted after presenting with increasing shortness of breath, body aches, chills and fever with COVID-19 viral positivity. Initial O2 saturations in the 80% range on room air at which point, the patient was placed on oxygen supplementation. The patient also received IV Rocephin and azithromycin in addition to dexamethasone. Chest imaging including CT showed dense consolidation and multifocal pneumonia. The patient received convalescent plasma at the time of presentation and continued on antibiotic therapy in addition to steroids. The patient did not clinically improve and required high-flow oxygen by nasal cannula to maintain O2 saturations in the low 90% range. The patient became agitated due to hypoxia and hypercapnia requiring sedation with Ativan in addition to soft wrist restraints. Due to worsening hypoxia despite appropriate treatment, the patient progressed to BiPAP noninvasive mechanical ventilation. The patient did express his desires of not wanting mechanical ventilation or intubation on multiple occasions. The patient also received a 5-day course of IV remdesivir per protocol in addition to anticoagulation with Lovenox. The patient continued to clinically decline on BiPAP noninvasive mechanical ventilation with FiO2 of 100%. The patient was given approximate 3-4 day trial of BiPAP noninvasive mechanical ventilation; however, was unable to maintain O2 saturations appropriately. Discussions were had with the family regarding aggressive care including intubation. However, the patient expressly stated his desire not to pursue mechanical ventilation and intubation. The patient continued to clinically decline on 06/15/2020 at which point, discussions were held with transitioning the patient to hospice care. The patient did transfer to hospice care on 06/15/2020 after discussions with the [facility]. DISCHARGE MEDICATIONS: 1. Albuterol sulfate 2 puffs q.6 hours. 2. Lipitor 10 mg p.o. at bedtime. 3. Enoxaparin 40 mg subcutaneously b.i.d. 4. Pepcid 20 mg p.o. b.i.d. 5. Glipizide 5 mg p.o. daily. 6. Hydrocortisone 50 mg IV push q.6 hours. 7. Zosyn 3.375 g IV q.6 hours. 8. Humalog insulin sliding scale. 9. Lisinopril 10 mg p.o. daily. 10. Lorazepam 1 mg IV push q.6 hours p.r.n. anxiety. 11. Dulera 200 mcg inhaled b.i.d. 12. Morphine sulfate 4 mg IV push q.1 hour p.r.n. 13. Protonix 40 mg p.o. b.i.d. 14. Zinc sulfate 220 mg p.o. at bedtime. FOLLOWUP: The patient may follow up with [facility] on 06/15/2020, likely inpatient hospice care. CONDITION AT DISCHARGE: Critical. DIET: N.p.o. CODE STATUS: Do not attempt resuscitation. DISPOSITION: Transfer to the [facility] care inpatient status on 06/15/2020. Job ID: [id number] [facility]
== END 2020-06-15 12:50 | disposition hospice, inpatient (51) | DRG 871 ==
LOC: ERS 18:08 → T4-B 19:29 → IMCU/EMU 06-09 20:50
PROVIDERS: ADMIT Internal Medicine; ATTEND Family Medicine
PROC: 8E0ZXY6 Isolation (ICD-10-PCS; 2020-05-30)
PROC: XW033E5 Introduction of Remdesivir Anti-infective into Peripheral Vein, Percutaneous Approach, New Technology Group 5 (ICD-10-PCS; 2020-06-02)
PROC: XW13325 Transfusion of Convalescent Plasma (Nonautologous) into Peripheral Vein, Percutaneous Approach, New Technology Group 5 (ICD-10-PCS; principal; 2020-06-04)
PROC: 5A09557 Assistance with Respiratory Ventilation, Greater than 96 Consecutive Hours, Continuous Positive Airway Pressure (ICD-10-PCS; 2020-06-09)
DX: A41.89 Other specified sepsis (principal); U07.1 COVID-19; J12.89 Other viral pneumonia; J96.01 Acute respiratory failure with hypoxia; J96.02 Acute respiratory failure with hypercapnia; Z68.42 Body mass index [BMI] 45.0-49.9, adult; E87.1 Hypo-osmolality and hyponatremia; G93.40 Encephalopathy, unspecified; Z66 Do not resuscitate; Z51.5 Encounter for palliative care; E66.01 Morbid (severe) obesity due to excess calories; E78.5 Hyperlipidemia, unspecified; E78.00 Pure hypercholesterolemia, unspecified; N18.30 Chronic kidney disease, stage 3 unspecified; E11.22 Type 2 diabetes mellitus with diabetic chronic kidney disease; I12.9 Hypertensive chronic kidney disease with stage 1 through stage 4 chronic kidney disease, or unspecified chronic kidney disease; D63.1 Anemia in chronic kidney disease; E87.6 Hypokalemia; Z79.899 Other long term (current) drug therapy; Z23 Encounter for immunization; Z78.1 Physical restraint status
CPT/HCPCS: 36415; 36416; 36430; 71045; 71275; 80048; 80053; 80076; 82728; 82805; 83615; 83880; 84132; 84145; 85007; 85025; 85027; 85379; 86140; 86769; 86850; 86900; 86901; 87449; 87635; 87899; 90471; 90662; 94150; 94660; G0008; J0456; J0696; J1100; J1650; J1720; J1940; J2060; J2270; J2543; J3490; J7050; P9017; Q9967; S0028; U0002; U0003

== ENCOUNTER 2020-06-15 13:02 | Inpatient (IN) | payer OTHER ==
[2020-06-15] MEDS ORDERED: Acetaminophen 650 MG Suppository PR PRN (13:15)
[2020-06-15] MEDS ORDERED: Ondansetron PF 4 MG/2 ML Vial IVP PRN (13:15)
[2020-06-15] MEDS ORDERED: Lorazepam 2 MG/ML VIAL SLOW IVP PRN ×2 (13:15)
[2020-06-15] MEDS ORDERED: Haloperidol Lactate 5 MG/ML VIAL SLOW IVP PRN (13:15)
[2020-06-15] MEDS ORDERED: Scopolamine 1.5 mg/72 hour Patch TOP PRN ×2 (13:15)
[2020-06-15] MEDS ORDERED: Bisacodyl 10 MG SUPP PR PRN (13:19)
[2020-06-15] MEDS: Morphine 2 MG/ML VIAL SLOW IVP PRN ×2 (13:27→13:28)
--- NOTE | 2020-06-16 13:17 | DIS ---
DATE OF ADMISSION: 06/15/2020 DATE OF DISCHARGE: 06/15/2020 DATE OF : 06/15/2020. PRINCIPAL DIAGNOSIS: Acute respiratory failure. SECONDARY DIAGNOSES: 1. Coronavirus disease 19 pneumonia. 2. Diabetes mellitus type 2. 3. Hypertension. 4. Morbid obesity. COMPLICATIONS: None. ADVERSE REACTIONS: None. PROCEDURES: None. CONSULTATIONS: None. HOSPITAL COURSE: The patient was admitted to inpatient Hospice on 06/15 due to worsening respiratory failure from COVID-19 infection despite appropriate medical treatment. Family chose Hospice. He was placed on comfort medications and taken off BiPAP and peacefully . He was not a candidate for organ donation. Body was released to the home. For full details, please see chart. Job ID: [id number]
== END 2020-06-15 15:23 | disposition expired | DRG 951 ==
LOC: IMCU/EMU 13:02
PROVIDERS: ADMIT Internal Medicine; ATTEND Internal Medicine
DX: Z51.5 Encounter for palliative care (principal); J12.89 Other viral pneumonia; J96.00 Acute respiratory failure, unspecified whether with hypoxia or hypercapnia; U07.1 COVID-19; E11.9 Type 2 diabetes mellitus without complications; E66.01 Morbid (severe) obesity due to excess calories; I10 Essential (primary) hypertension; Z83.3 Family history of diabetes mellitus; Z82.49 Family history of ischemic heart disease and other diseases of the circulatory system; Z66 Do not resuscitate
CPT/HCPCS: J2060; J2270